=== PATIENT | male | born 1955 | race Caucasian/White ===

== ENCOUNTER 2018-02-25 17:31 | Inpatient (IN) | payer OTHER ==
[2018-02-25] MEDS ORDERED: SODIUM CHLORIDE 0.9% 1,000 ML IV ONE (17:37)
--- NOTE | 2018-02-25 17:47 | ED ---
Fall HPI - General Chief Complaint: Fall Stated Complaint: Fall leg injury-[facility] Time Seen by Provider: 02/25/18 17:35 Source: patient, EMS Mode of arrival: EMS Limitations: no limitations - History of Present Illness Initial Comments: 62-year-old male presented to emergency department via EMS chief complaint left leg injury. Patient states she was at work on a ladder approximately 3 feet high when he was cutting a metal bar came down striking the ladder causing him to fall. Patient fell onto metal plate. There is an abrasion towards his left knee but states he has mid thigh pain. Patient states he is unable to bear weight secondary to pain. He denies head injury no loss conscious. Patient is unsure when his last tetanus was. Patient does not have a significant past medical HISTORY though he states he has not been to a physician in several years. Patient's found be hypertensive, hyperglycemic. Patient states that he has no history though again he has not been to the PCP. Patient denies any head , neck, back pain. Patient states he has no pain towards his left hip. He has no abdominal complaints. Patient was given fentanyl prior arrival. - Related Data Home Medications Medication Instructions Recorded Confirmed Acetaminophen Tab [Tylenol] 1,000 mg PO DAILY 02/25/18 02/25/18 Allergies Allergy/AdvReac Type Severity Reaction Status Date / Time No Known Allergies Allergy Verified 02/25/18 18:07 Review of Systems ROS Statement: Those systems with pertinent positive or pertinent negative responses have been documented in the HPI. ROS Other: All systems not noted in ROS Statement are negative. Past Medical History History of Any Multi-Drug Resistant Organisms: None Reported Additional Past Surgical History / Comment(s): nose Past Psychological History: No Psychological Hx Reported Smoking Status: Former smoker Past Alcohol Use History: Rare Past Drug Use History: None Reported General Exam Limitations: no limitations General appearance: alert, in no apparent distress Head exam: Present: atraumatic, normocephalic, normal inspection Eye exam: Present: normal appearance, PERRL, EOMI. Absent: scleral icterus, conjunctival injection, periorbital swelling Respiratory exam: Present: normal lung sounds bilaterally. Absent: respiratory distress, wheezes, rales, rhonchi, stridor Cardiovascular Exam: Present: normal rhythm, tachycardia, normal heart sounds. Absent: systolic murmur, diastolic murmur, rubs, gallop, clicks GI/Abdominal exam: Present: soft, normal bowel sounds. Absent: distended, tenderness, guarding, rebound, rigid Extremities exam: Present: other (Moderate tenderness to left mid thigh, there is a noted abrasion to the lateral portion a left knee with no significant tenderness, no tib-fib tenderness noted the leg is neurovascularly intact with no obvious deformity) Back exam: Present: full ROM. Absent: tenderness, paraspinal tenderness, vertebral tenderness Neurological exam: Present: alert, oriented X3, CN II-XII intact, reflexes normal, other (Finger to nose intact bilaterally without over shooting). Absent : motor sensory deficit Skin exam: Present: warm, dry, intact, normal color. Absent: rash Course Vital Signs 02/25/18 17:36 Temperature 96.9 F L Pulse Rate 104 H Respiratory 18 Rate Blood Pressure 191/104 O2 Sat by Pulse 96 Oximetry Medical Decision Making - Medical Decision Making 62-year-old male presented emergency from for a fall. Patient's found to have a left hip fracture, new-onset diabetic. Patient will be admitted to Dr. Fong and wants surgical clearance by medicine. - Lab Data Result diagrams: 02/25/18 18:02 02/25/18 18:02 Lab Results 02/25/18 02/25/18 Range/Units 18:02 18:02 WBC 10.8 H (3.8-10.6) k/uL RBC 5.20 (4.30-5.90) m/uL Hgb 15.0 (13.0-17.5) gm/dL Hct 43.2 (39.0-53.0) % MCV 83.0 (80.0-100.0) fL MCH 28.8 (25.0-35.0) pg MCHC 34.7 (31.0-37.0) g/dL RDW 13.5 (11.5-15.5) % Plt Count 163 (150-450) k/uL Neutrophils % 83 % Lymphocytes % 10 % Monocytes % 6 % Eosinophils % 1 % Basophils % 0 % Neutrophils # 8.9 H (1.3-7.7) k/uL Lymphocytes # 1.1 (1.0-4.8) k/uL Monocytes # 0.6 (0-1.0) k/uL Eosinophils # 0.1 (0-0.7) k/uL Basophils # 0.0 (0-0.2) k/uL Sodium 136 L (137-145) mmol/L Potassium 4.5 (3.5-5.1) mmol/L Chloride 103 (98-107) mmol/L Carbon Dioxide 21 L (22-30) mmol/L Anion Gap 12 mmol/L BUN 15 (9-20) mg/dL Creatinine 0.62 L (0.66-1.25) mg/dL Est GFR (CKD-EPI)AfAm >90 (>60 ml/min/1.73 sqM) Est GFR (CKD-EPI)NonAf >90 (>60 ml/min/1.73 sqM) Glucose 434 H (74-99) mg/dL Calcium 9.6 (8.4-10.2) mg/dL Total Bilirubin 0.9 (0.2-1.3) mg/dL AST 36 (17-59) U/L ALT 31 (21-72) U/L Alkaline Phosphatase 241 H (38-126) U/L Total Protein 7.4 (6.3-8.2) g/dL Albumin 4.3 (3.5-5.0) g/dL Acetone, Qual Negative (Negative) Disposition Clinical Impression: Fall, Closed left hip fracture, Diabetes Disposition: ADMITTED IP TO THIS HOSP Condition: Fair Referrals: None,Stated [Primary Care Provider] - 1-2 days
[2018-02-25 18:24] LABS: Basophils % (A) 0 %; Eosinophils # (A) 0.1 k/uL (0-0.7); Eosinophils % (A) 1 %; HCT 43.2 % (39.0-53.0); Lymphocytes # (A) 1.1 k/uL (1.0-4.8); Lymphocytes % (A) 10 %; MCH 28.8 pg (25.0-35.0); MCHC 34.7 g/dL (31.0-37.0); Mean Platelet Volume 8.4; Monocytes # (A) 0.6 k/uL (0-1.0); Monocytes % (A) 6 %; Neutrophils # (A) 8.9 k/uL (1.3-7.7); Neutrophils % (A) 83 %; Platelet Count 163 k/uL (150-450); RDW 13.5 % (11.5-15.5); WBC 10.8 k/uL (3.8-10.6)
[2018-02-25 18:34] LABS: ALT 31 U/L (21-72); AST 36 U/L (17-59); Albumin 4.3 g/dL (3.5-5.0); Alkaline Phosphatase 241 U/L (38-126); Anion Gap 12 mmol/L; Blood Urea Nitrogen 15 mg/dL (9-20); Calcium 9.6 mg/dL (8.4-10.2); Carbon Dioxide 21 mmol/L (22-30); Chloride 103 mmol/L (98-107); Glucose 434 mg/dL (74-99); Potassium 4.5 mmol/L (3.5-5.1); Sodium 136 mmol/L (137-145); Total Bilirubin 0.9 mg/dL (0.2-1.3); Total Protein 7.4 g/dL (6.3-8.2)
[2018-02-25] MEDS ORDERED: HYDROmorphone 0.5 MG/0.5 ML SYRINGE IVP STA (18:37)
[2018-02-25] MEDS ORDERED: ONDANSETRON 4 MG/2 ML VIAL IVP PRN (18:50)
[2018-02-25] MEDS ORDERED: NALOXONE 0.4 MG/ML 1 ML VIAL IV PRN (18:50)
[2018-02-25] MEDS ORDERED: HYDROmorphone 0.5 MG/0.5 ML SYRINGE IVP PRN (18:50)
--- NOTE | 2018-02-25 18:52 | XR ---
EXAMINATION TYPE: XR femur LT DATE OF EXAM: 02/25/2018 COMPARISON: NONE HISTORY: Left hip pain TECHNIQUE: 4 views FINDINGS: There is nondisplaced fracture of the base of the femoral neck. There is no dislocation. Th e knee joint appears intact. IMPRESSION: Acute fracture of the base of the left femoral neck without significant displacement.
--- NOTE | 2018-02-25 18:56 | XR ---
EXAMINATION TYPE: XR chest 1V portable DATE OF EXAM: 02/25/2018 COMPARISON: NONE HISTORY: Preop clearance TECHNIQUE: Single frontal view of the chest is obtained. FINDINGS: Heart and mediastinum are normal. Lungs are clear. Diaphragm is normal. Bony thorax appear s normal. IMPRESSION: Normal chest
[2018-02-25 19:12] LABS: INR 0.9 (<1.2); Partial Thromboplastin Time 22.3 sec (22.0-30.0); Prothrombin Time 9.9 sec (9.0-12.0)
[2018-02-25 19:20] LABS: Glucose,Whole Blood 347 mg/dL (75-99)
[2018-02-25] MEDS ORDERED: DIPH,PERTUS(ACELL)TETVAC-LF 0.5 ML VIAL IM ONE (19:30)
[2018-02-25] MEDS ORDERED: INSULIN REGULAR 100 UNIT/ML VIAL IV ONE (19:30)
[2018-02-25 20:25] LABS: Glucose,Whole Blood 274 mg/dL (75-99)
[2018-02-25] MEDS ORDERED: ACETAMINOPHEN TAB 325 MG TAB PO PRN (20:29)
[2018-02-25] MEDS ORDERED: HEPARIN SODIUM,PORCINE 5,000 UNIT/ML 1 ML VIAL SQ ONE (21:00)
[2018-02-25] MEDS: HYDROmorphone 1 MG/ML 1 ML SYRINGE IVP PRN (21:32)
[2018-02-25] MEDS: SODIUM CHLORIDE 0.9% 1,000 ML IV SCH (21:33)
[2018-02-25] MEDS: INSULIN ASPART 100 UNIT/ML 1 ML 10 ML VIAL SQ SCH (21:33)
--- NOTE | 2018-02-25 22:35 | XR ---
EXAMINATION TYPE: XR pelvis AP view DATE OF EXAM: 02/25/2018 COMPARISON: NONE HISTORY: Fall. Hip fracture TECHNIQUE: Single view FINDINGS: Pelvic ring is intact. There is nondisplaced fracture of the base of the left femoral neck. Sacroiliac joints appear normal. There is no dislocation. Hip joint spaces are normal. IMPRESSION: Nondisplaced left femoral neck fracture.
[2018-02-26] MEDS ORDERED: TEMAZEPAM 15 MG CAP PO PRN (00:53)
[2018-02-26] MEDS ORDERED: hydrALAZINE HCL 20 MG/ML 1 ML VIAL IVP PRN (00:54)
[2018-02-26] MEDS: amLODIPine 5 MG TAB PO SCH ×2 (01:02→07:31)
[2018-02-26] MEDS: HYDROmorphone 1 MG/ML 1 ML SYRINGE IVP PRN ×4 (01:41→20:14)
[2018-02-26 01:43] LABS: Appearance,Urine Clear (Clear); Bilirubin,Urine Negative (Negative); Blood,Urine Negative (Negative); Color,Urine Yellow; Glucose,Urine (UA) 4+ (Negative); Leukocyte Esterase,Urine Negative (Negative); Nitrite,Urine Negative (Negative); Protein,Urine Negative (Negative); Specific Gravity,Urine 1.039 (1.001-1.035); Urobilinogen,Urine <2.0 mg/dL (<2.0)
[2018-02-26 01:50] LABS: Ketones,Urine 2+ (Negative)
[2018-02-26 07:04] LABS: Basophils % (A) 0 %; Eosinophils # (A) 0.1 k/uL (0-0.7); Eosinophils % (A) 1 %; HCT 36.9 % (39.0-53.0); HGB 12.8 gm/dL (13.0-17.5); Lymphocytes # (A) 1.5 k/uL (1.0-4.8); Lymphocytes % (A) 19 %; MCHC 34.6 g/dL (31.0-37.0); Mean Platelet Volume 8.3; Monocytes # (A) 0.6 k/uL (0-1.0); Monocytes % (A) 8 %; Neutrophils # (A) 5.6 k/uL (1.3-7.7); Neutrophils % (A) 71 %; Platelet Count 138 k/uL (150-450); RDW 13.7 % (11.5-15.5)
[2018-02-26 07:20] LABS: Anion Gap 7 mmol/L; Blood Urea Nitrogen 13 mg/dL (9-20); Calcium 8.5 mg/dL (8.4-10.2); Carbon Dioxide 24 mmol/L (22-30); Chloride 106 mmol/L (98-107); Glucose 200 mg/dL (74-99); Potassium 4.9 mmol/L (3.5-5.1); Sodium 137 mmol/L (137-145)
[2018-02-26] MEDS: metFORMIN 500 MG TAB PO SCH ×2 (07:30→17:48)
[2018-02-26 07:31] LABS: Glucose,Whole Blood 229 mg/dL (75-99)
[2018-02-26] MEDS: INSULIN ASPART 100 UNIT/ML 1 ML 10 ML VIAL SQ SCH ×4 (07:31→20:31)
[2018-02-26] MEDS: PANTOPRAZOLE 40 MG TABLET PO SCH (07:31)
[2018-02-26 07:36] LABS: INR 0.9 (<1.2); Partial Thromboplastin Time 22.7 sec (22.0-30.0); Prothrombin Time 10.1 sec (9.0-12.0)
[2018-02-26] MEDS ORDERED: HEPARIN SODIUM,PORCINE 5,000 UNIT/ML 1 ML VIAL SQ SCH (09:00)
[2018-02-26] MEDS: SODIUM CHLORIDE 0.9% 1,000 ML IV SCH ×2 (09:23→20:30)
--- NOTE | 2018-02-26 10:00 | CONS ---
CONSULTATION DATE OF SERVICE: 02/25/2018 REASON FOR CONSULTATION: Advice regarding diabetes mellitus and other multiple medical issues requested by Dr. Garcia. HISTORY OF PRESENT ILLNESS: This 62-year-old gentleman with a past medical history of no significant medical issues except newly diagnosed diabetes since this admission not being followed by any primary physician in the outpatient setting, had left wrist ganglion removal. The patient apparently had a fall from the ladder and the patient admitted with features of nondisplaced left femoral neck fracture. There is no history of fever, rigors or chills. No history of headache, loss of consciousness, or seizures. As mentioned earlier, the blood sugar was elevated to 434, improved with insulin coverage at this time. Hemoglobin A1c is note available. There is no history of fever, rigors or chills. No chest pain. No palpitations or shortness of breath at this time. PAST MEDICAL HISTORY: History of left wrist ganglion removal. MEDICATIONS ARE: Tylenol p.r.n. ALLERGIES: None. FAMILY HISTORY: History of diabetes in the family. Cancer in the family. SOCIAL HISTORY: Previous history of smoking. No history of current smoking or alcohol intake. REVIEW OF SYSTEMS: ENT: No diminished hearing. No diminished vision. CARDIOVASCULAR: No angina or palpitations. RESPIRATORY: No cough or hemoptysis. GI no nausea or vomiting. : No dysuria. NERVOUS SYSTEM: No numbness or weakness. ALLERGY/IMMUNOLOGY: No asthma or hayfever. MUSCULOSKELETAL: As mentioned earlier. HEMATOLOGY/ONCOLOGY: No history of anemia. ENDOCRINE: As mentioned earlier. CONSTITUTIONAL: As mentioned earlier. Dermatology: Negative. Rheumatology: Negative. Psychiatry: As mentioned earlier. PHYSICAL EXAMINATION: GENERAL: Alert and oriented x3. VITAL SIGNS: Pulse is 104, blood pressure ntd, respiration 18, temperature 96.9 , pulse ox 98% on room air. HEENT: Conjunctivae normal. Oral mucosa moist. NECK: No jugular venous distention. No carotid bruit. No lymph node enlargement. CARDIOVASCULAR: S1, S2. No S3, no S4. RESPIRATORY: Breath sounds diminished in the bases. No rhonchi. No crackles. ABDOMEN: Soft, nontender. No mass palpable. LEGS: Status post left hip fracture. NERVOUS SYSTEM: Higher functions as mentioned earlier. Moves all 4 limbs. No focal motor or sensory deficits. Lymphatics: No lymph nodes palpable in the neck, axillae or groin. SKIN: No ulcer, rash, no bleeding. LAB STUDIES: At this time shows WBC 10.8, hemoglobin 15, sodium 130, potassium 4.5. Glucose noted. ASSESSMENT: 1. Left-sided hip fracture. 2. Diabetes mellitus type 2, uncontrolled with new onset. 3. Hyponatremia. 4. Hypertension. 5. Increased WBC. 6. Obesity with a BMI of 39.9. 7. History of left wrist ganglion removal. 8. Remote history of nicotine dependence. RECOMMENDATIONS AND DISCUSSION: In this 62-year-old gentleman who presented with multiple medical issues, at this time, I recommend continue the current medications. Continue with insulin. Insulin to scale. I would also recommend initiate metformin. Hemoglobin A1c will be ordered. Otherwise, DVT prophylaxis. Incentive spirometry. I would also recommend monitoring and treating the hypertension. See orders for further details. We will follow the patient closely with you. The previous exercise tolerance appears to be excellent and the patient will be cleared for surgery. However, I would recommend close follow up with the primary physician in the outpatient setting regarding the above- mentioned medical issues. Further recommendations to follow. Thank you, Dr. Garcia, for letting us participate in the care of this patient. MMODL / IJN: [id number] / LONI
--- NOTE | 2018-02-26 11:16 | P.HPOR ---
History of Present Illness H&P Date: 02/26/18 Chief Complaint: Left hip fracture Patient is a 62-year-old male who presented to [facility] yesterday afternoon after sustaining an injury at work. Patient was apparently up on a ladder cutting away a metal component, the metal slipped and hit his ladder which caused him to fall. Patient fell directly onto a metal object. Patient was unable to weight-bear after the fall. EMS brought patient to [facility]. Upon arrival, imaging lab tests were done. Images demonstrated a left subcapital femoral neck fracture. I was contacted by the emergency room staff, I was able to review the images. I was able to review the images with my attending physician Dr. Garcia. Patient was admitted under our care with plan for surgical intervention, internal medicine was placed on consult for medical management. Patient was made nothing by mouth on 02/25/2018. Patient was evaluated this morning at bedside, he has family present in the room. He's resting comfortably. He notes discomfort in the left hip region with movement. He denies any left knee pain, foot or ankle pain. He denies any right lower extremity pain, bilateral upper extremity pain, new-onset cervical, thoracic or lumbar pain. Patient is relatively healthy, he does not see a primary care doctor. His blood sugar was noted to be significantly elevated in the ER, medicine has ordered an sliding-scale insulin which has improved. He denies any previous issues with cardiac or lung function. He denies any previous orthopedic surgeon while the left lower extremity. Review of Systems Constitutional: Reports as per HPI Past Medical History Past Medical History: Diabetes Mellitus Additional Past Medical History / Comment(s): Newly diagnosed Diabetes this admission History of Any Multi-Drug Resistant Organisms: None Reported Additional Past Surgical History / Comment(s): Left Wrist ganglion removal, Nasal surgery 1989 Past Anesthesia/Blood Transfusion Reactions: No Reported Reaction Additional Past Anesthesia/Blood Transfusion Reaction / Comment(s): Never had blood transfusions Past Psychological History: No Psychological Hx Reported Smoking Status: Former smoker Past Alcohol Use History: None Reported Past Drug Use History: None Reported - Past Family History Mother Family Medical History: Cancer, Diabetes Mellitus Additional Family Medical History / Comment(s): Father Family Medical History: Neurologic Disorder Additional Family Medical History / Comment(s): Parkinsons Disease Sister(s) Family Medical History: Diabetes Mellitus Brother(s) Family Medical History: Diabetes Mellitus Medications and Allergies Home Medications Medication Instructions Recorded Confirmed Type Acetaminophen Tab [Tylenol] 1,000 mg PO DAILY 02/25/18 02/25/18 History Allergies Allergy/AdvReac Type Severity Reaction Status Date / Time No Known Allergies Allergy Verified 02/25/18 18:07 Physical Examination Left lower extremity: Is no obvious open lesions or sores present throughout the left lower extremity. A small abrasion is noted on the lateral aspect of the left knee. No significant areas of soft tissue swelling or erythema present. External rotation is noted of the left lower extremity compared to the contralateral side. Logroll maneuver reproduces discomfort, he is unable to straight leg raise. No significant tenderness surrounding the knee with palpation. Tenderness with palpation present over the greater trochanter on the left side. Calf is soft, no tenderness with palpation. Plantar flexion, dorsiflexion, EHL, FHL are intact. His dorsal pedis pulses 2+, sensory exam to light touch is intact throughout the extremity. Results - Labs Labs: Abnormal Lab Results - Last 24 Hours (Table) 02/25/18 02/25/18 02/25/18 Range/Units 18:02 18:02 19:18 WBC 10.8 H (3.8-10.6) k/uL Hgb (13.0-17.5) gm/dL Hct (39.0-53.0) % Plt Count (150-450) k/uL Neutrophils # 8.9 H (1.3-7.7) k/uL Sodium 136 L (137-145) mmol/L Carbon Dioxide 21 L (22-30) mmol/L Creatinine 0.62 L (0.66-1.25) mg/dL Glucose 434 H (74-99) mg/dL POC Glucose (mg/dL) 347 H (75-99) mg/dL Alkaline Phosphatase 241 H (38-126) U/L Ur Specific [place] (1.001-1.035) Urine Glucose (UA) (Negative) Urine Ketones (Negative) 02/25/18 02/26/18 02/26/18 Range/Units 20:13 01:35 06:44 WBC (3.8-10.6) k/uL Hgb 12.8 L (13.0-17.5) gm/dL Hct 36.9 L (39.0-53.0) % Plt Count 138 L (150-450) k/uL Neutrophils # (1.3-7.7) k/uL Sodium (137-145) mmol/L Carbon Dioxide (22-30) mmol/L Creatinine (0.66-1.25) mg/dL Glucose (74-99) mg/dL POC Glucose (mg/dL) 274 H (75-99) mg/dL Alkaline Phosphatase (38-126) U/L Ur Specific [place] 1.039 H (1.001-1.035) Urine Glucose (UA) 4+ H (Negative) Urine Ketones 2+ H (Negative) 02/26/18 02/26/18 Range/Units 06:44 07:20 WBC (3.8-10.6) k/uL Hgb (13.0-17.5) gm/dL Hct (39.0-53.0) % Plt Count (150-450) k/uL Neutrophils # (1.3-7.7) k/uL Sodium (137-145) mmol/L Carbon Dioxide (22-30) mmol/L Creatinine 0.63 L (0.66-1.25) mg/dL Glucose 200 H (74-99) mg/dL POC Glucose (mg/dL) 229 H (75-99) mg/dL Alkaline Phosphatase (38-126) U/L Ur Specific [place] (1.001-1.035) Urine Glucose (UA) (Negative) Urine Ketones (Negative) H & H 02/25/18 02/26/18 Range/Units 18:02 06:44 Hgb 15.0 12.8 L (13.0-17.5) gm/dL Hct 43.2 36.9 L (39.0-53.0) % Coagulation 02/25/18 02/26/18 Range/Units 18:02 06:44 INR 0.9 0.9 (<1.2) Result Diagrams: 02/26/18 06:44 02/26/18 06:44 - Diagnostic results Hip x-ray: report reviewed, image reviewed Assessment and Plan Plan: Imaging: Pelvis x-ray along with dedicated left hip x-rays were reviewed. Images demonstrate a left subcapital femoral neck fracture with minimal displacement. Assessment: 1. Left subcapital femoral neck fracture 2. Status post fall from ladder 3. Other medical comorbidities Plan: I was able to discuss the case, including the physical exam findings and imaging studies my attending Dr. Garcia. Our plan is to proceed with a left total hip arthroplasty on 02/26/2018. I discussed the case, including risk and benefits of the procedure with the patient and family today at bedside. Risk to include but not exclude infection, blood loss, development of blood clots, pain and stiffness, need for subsequent surgery. Patient is in good understanding would like to proceed. Obtain consent Pain control Physical therapy evaluation after surgery GI and DVT prophylaxis, will likely resume oral anticoagulation after surgery Medical recommendations Further recommendations to follow Time with Patient: Less than 30
[2018-02-26 12:19] LABS: Glucose,Whole Blood 350 mg/dL (75-99)
[2018-02-26 12:26] LABS: Glucose,Whole Blood 196 mg/dL (75-99)
[2018-02-26] MEDS ORDERED: SODIUM CHLORIDE 0.9% 1,000 ML IV ONE (12:28)
[2018-02-26] MEDS ORDERED: HYDROmorphone (PF) 1 MG/ML ONE (12:32)
[2018-02-26] MEDS ORDERED: PROPOFOL 10 MG/ML 20 ML VIAL IV ONE (12:32)
[2018-02-26] MEDS ORDERED: fentaNYL (PF) 50 MCG/ML 2 ML AMP ONE (12:32)
[2018-02-26] MEDS ORDERED: LIDOCAINE 1% INJ 10MG/ML (20 ML MDV) ONE (12:32)
[2018-02-26] MEDS ORDERED: KETAMINE 10 MG/ML 20 ML VIAL ONE (12:32)
[2018-02-26] MEDS ORDERED: DEXAMETHASONE SOD PHOS (MDV) 100 MG/10 ML VIAL ONE (12:32)
[2018-02-26] MEDS ORDERED: MIDAZOLAM 2 MG/2 ML VIAL ONE (12:32)
[2018-02-26] MEDS ORDERED: SODIUM CHLORIDE 0.9% 50 ML with ceFAZolin 2,000 MG IV ONE ×2 (12:55)
[2018-02-26] MEDS ORDERED: ceFAZolin 3,000 MG in SODIUM CHLORIDE 0.9% IRRIGATIO 3,000 ML IRRIGATION ONE (13:24)
[2018-02-26] MEDS ORDERED: LACTATED RINGERS 1,000 ML IV ONE (13:44)
[2018-02-26] MEDS ORDERED: traMADol 50 MG TAB PO PRN (14:15)
[2018-02-26] MEDS ORDERED: HYDROcodone/APAP 7.5-325MG 1 EACH TAB PO PRN (14:15)
[2018-02-26] MEDS ORDERED: MAGNESIUM HYDROXIDE 2,400 MG/10 ML CUP PO PRN (14:15)
--- NOTE | 2018-02-26 14:44 | P.OP ---
Date of Procedure: 02/26/18 Preoperative Diagnosis: Displaced left subcapital femoral neck fracture Postoperative Diagnosis: Same Procedure(s) Performed: Left total hip arthroplastypress-fitlateral approach Implants: Depuy Corail size 12 collared standard press-fit femoral stem, 32 mm +5 cobalt chrome femoral head, 52 mm [place] acetabular shell with neutral polyethylene liner. Anesthesia: spinal Surgeon: Edin Garcia Owner #1: Scott Coy Estimated Blood Loss (ml): 150 Pathology: other (Femoral head) Condition: stable Disposition: PACU Indications for Procedure: The patient's a 62-year-old male who presents after falling off a ladder injuring his left hip. Upon evaluation he is noted of evidence of a displaced left subcapital femoral neck fracture. A discussion of the risks and benefits of operative intervention was made with patient. He opted to proceed. Operative options to include open reduction and internal fixation versus total hip arthroplasty was discussed. He opted to proceed with total hip arthroscopy. Specific risks of this procedure to include infection, neurovascular injury, development of blood clots, possible component loosening, possible instability, possible leg length discrepancy and possible need for subsequent procedures was discussed. Informed consent was obtained. Operative Findings: As below Description of Procedure: The patient was brought to the operating room, and after induction of spinal anesthesia was placed in a lateral decubitus position. The bony prominences were appropriately padded. The pelvis was stable perpendicular to the floor with a pegboard. The left lower extremity was prepped and draped in normal fashion. A 12 cm incision was then made centered over the greater trochanter extending superiorly to level the ASIS and distally in line with the femoral shaft. The skin and subcutaneous tissues were divided sharply. Electrocautery was used for hemostasis. The fascia denny and gluteus carmenza fascia was split in line with the skin incision. The muscle fibers were bluntly dissected proximally. A self-retaining retractor was placed. The anterior and posterior margins of the gluteus medius muscles identified and the anterior two thirds was detached from the greater trochanter with electrocautery. The gluteus minimus tendon was identified and detached in a similar fashion. A wide capsulotomy was performed. The femoral neck fracture was identified in the lower neck cut was made approximately 1 1/2 cm above the level of the lesser trochanter with a sagittal saw at a 45 the shaft. The head was then extracted with a corkscrew. Attention was then paid towards preparing the acetabular. Anterior and posterior retractors were placed. The remaining capsular labral tissues debrided sharply clearly defining the acetabular margins. Began reaming with a 47 mm reamer taking care to initially medialize, then reaming at 45 of abduction and 20 of anteversion. Sequential reaming is performed up to 51 mm. This was down to bleeding bony surface. A trial 52 mm acetabular shell was inserted at 45 of abduction and 20 of anteversion. This was fully seated. There was good rim fit and stability. I did place one 6.5 x 25 mm cancellus screw posteriorly. Good purchase was obtained. A neutral polyethylene liner was then impacted. Care taken to avoid any soft tissue interposition. Attention was then paid towards preparing the proximal femur. A box chisel was used to open the metaphyseal region. A canal finder was used to find the femoral canal. Sequential broaching was performed up to a size 11. This is placed in 15 of anteversion with the leg perpendicular floor judging off the trans-epicondylar axis. There is good rotational stability. A calcar mill was used to fashion the medial calcar. A trial standard neck along with a 32 mm +5 trial head was placed. The hip was gently reduced. It was taken through range of motion. I felt to be stable in flexion and extension with internal and external rotation. I felt there was adequate mandaen of soft tissue tension. The hip was gently dislocated. The trial components removed. Pulsatile lavage was utilized. The final size 11 standard collared femoral stem was inserted again with the leg perpendicular to the floor in 15 of anteversion. Again there was good rotational stability. A 32 mm +5 cobalt chrome femoral head was gently impacted. The hip was gently reduced. Again it was taken through motion and felt to be stable in flexion and extension with internal and external rotation. Pulsatile lavage was again utilized. With the leg in abduction the gluteus minimus and medius tendons reattached to the greater trochanter with #2 [place] suture. There was minimal drainage therefore a deep drain was not placed. The fascia denny and gluteus carmenza fascia was closed with #2 Ethibond suture. The subcutaneous tissues were reapproximated interrupted 2-0 Vicryl sutures. The skin was reapproximated with 3-0 subcuticular strata fix suture. Skin tape and adhesive was applied. A sterile dressing was applied. The patient was awoken from sedation and transferred to recovery room in good condition. Blood loss was estimated 150 mL. No complications were incurred. Sponge and needle counts were correct in the case. John VALLADARES assisted during the major composes case to include exposure, implantation, and closure.
[2018-02-26 14:48] LABS: Glucose,Whole Blood 177 mg/dL (75-99)
[2018-02-26] MEDS ORDERED: diphenhydrAMINE 50 MG/ML 1 ML VIAL IVP STA (16:12)
--- NOTE | 2018-02-26 16:13 | XR ---
EXAMINATION TYPE: XR Hip Limited LT DATE OF EXAM: 02/26/2018 COMPARISON: NONE HISTORY: Postop TECHNIQUE: Single view FINDINGS: There is left hip prosthesis. Components appear in anatomic position. IMPRESSION: No complicating process seen.
[2018-02-26 17:10] LABS: Glucose,Whole Blood 227 mg/dL (75-99)
[2018-02-26] MEDS: ceFAZolin IN SWFI 2 GM/20 ML SYRINGE IVP SCH (20:15)
[2018-02-26 20:25] LABS: Glucose,Whole Blood 327 mg/dL (75-99)
[2018-02-26] MEDS ORDERED: SENNOSIDES-DOCUSATE SODIUM 1 EACH TAB PO SCH (21:00)
--- NOTE | 2018-02-26 21:45 | PN ---
PROGRESS NOTE DATE OF SERVICE: 02/26/2018 This 62-year-old gentleman who was admitted with left-sided hip fracture, underwent left total knee joint arthroplasty. No chest pain. No palpitations. No fever. The patient has got new onset diabetes mellitus, which is controlled with insulin and metformin at this time. EXAM: Alert and oriented times three. Pulse 97, blood pressure 134/66, respiration 16, temperature 99.1, pulse ox 97% on 2 L. HEENT is conjunctivae normal. Neck is no jugular venous distention. Cardiovascular: S1, S2. RESPIRATORY: Breath sounds diminished in the bases. No rhonchi. No crackles. Abdomen is soft, nontender. Legs status post surgery. Nervous system: No focal deficits. LABORATORY DATA: Glucose 177, 227. Otherwise WBC 8, hemoglobin 12.8. ASSESSMENT: 1. Left sided hip fracture status post left total hip arthroplasty. 2. Diabetes mellitus type 2, uncontrolled with new onset. 3. Hyponatremia. 4. Hypertension. 5. Increased WBC. 6. Obesity with body mass index of 39.9. 7. History of left wrist ganglion removal. 8. Remote history of nicotine dependence. RECOMMENDATIONS AND DISCUSSION: Recommend to continue current medications, management and symptomatic treatment, incentive spirometry. DVT prophylaxis. Closely follow with surgery. Continue with blood sugars. Monitor closely. Guarded prognosis. Further recommendations to follow. MMODL / IJN: [id number] /
[2018-02-27] MEDS: HYDROmorphone 1 MG/ML 1 ML SYRINGE IVP PRN (05:26)
[2018-02-27] MEDS: ceFAZolin IN SWFI 2 GM/20 ML SYRINGE IVP SCH (05:27)
[2018-02-27 07:04] LABS: Glucose,Whole Blood 207 mg/dL (75-99)
[2018-02-27 07:12] LABS: Basophils % (A) 0 %; Eosinophils % (A) 0 %; HGB 11.5 gm/dL (13.0-17.5); Lymphocytes % (A) 11 %; MCH 28.9 pg (25.0-35.0); MCHC 34.8 g/dL (31.0-37.0); MCV 83.1 fL (80.0-100.0); Mean Platelet Volume 8.5; Monocytes # (A) 0.7 k/uL (0-1.0); Monocytes % (A) 8 %; Neutrophils # (A) 7.2 k/uL (1.3-7.7); Neutrophils % (A) 79 %; Platelet Count 136 k/uL (150-450); RBC 3.98 m/uL (4.30-5.90); RDW 13.6 % (11.5-15.5); WBC 9.1 k/uL (3.8-10.6)
[2018-02-27 07:38] LABS: Anion Gap 7 mmol/L; Blood Urea Nitrogen 13 mg/dL (9-20); Calcium 8.3 mg/dL (8.4-10.2); Carbon Dioxide 24 mmol/L (22-30); Chloride 104 mmol/L (98-107); Cholesterol 152 mg/dL (<200); Glucose 190 mg/dL (74-99); HDL Cholesterol 44 mg/dL (40-60); LDL Cholesterol,Calculated 94 mg/dL (0-99); Potassium 4.6 mmol/L (3.5-5.1); Sodium 135 mmol/L (137-145); Triglycerides 70 mg/dL (<150)
[2018-02-27] MEDS: HYDROcodone/APAP 7.5-325MG 1 EACH TAB PO PRN ×2 (08:47→14:22)
[2018-02-27] MEDS: INSULIN ASPART 100 UNIT/ML 1 ML 10 ML VIAL SQ SCH ×2 (08:47→12:45)
[2018-02-27] MEDS: PANTOPRAZOLE 40 MG TABLET PO SCH (08:48)
[2018-02-27] MEDS: amLODIPine 5 MG TAB PO SCH (08:48)
[2018-02-27] MEDS: metFORMIN 500 MG TAB PO SCH (08:49)
[2018-02-27] MEDS ORDERED: RIVAROXABAN 10 MG TAB PO SCH (09:00)
[2018-02-27 09:04] VITALS: BP 154/78; PULSE 105; RESP 16; TEMP 98.3
--- NOTE | 2018-02-27 10:51 | P.PN ---
Subjective Progress Note Date: 02/27/18 Principal diagnosis: Status post left total hip arthroplasty Patient is seen today resting in his hospital bed, his family is present at bedside. His no acute complaints. There is minimal discomfort and left hip region. He is ambulating well with therapy. He is urinating on his own. He denies any chest pain or shortness of breath. Objective - Vital Signs Vital signs: Vital Signs Temp 98.3 F 02/27/18 09:02 Pulse 105 H 02/27/18 09:02 Resp 16 02/27/18 09:02 BP 154/78 02/27/18 09:02 Pulse Ox 93 L 02/27/18 09:02 Intake & Output 02/26/18 02/27/18 02/27/18 18:59 06:59 18:59 Intake Total 1051 1880 Output Total 150 320 Balance 901 1560 Intake: IV 1051 Intake, IV Titration 600 Amount Sodium Chloride 0.9% 1, 600 000 ml @ 75 mls/hr IV . [id number] Rx#:[id number] Oral 1280 Output: Urine 320 Estimated Blood Loss 150 Other: Voiding Method Urinal # Voids 2 - Exam Left lower extremity: Incision is clean, dry, and intact. The exofin fusion tape is in good condition. There is minimal soft tissue swelling and ecchymosis surrounding the medial and lateral aspects of the incision. Calf is soft, no tenderness with palpation. Plantar flexion, dorsiflexion, EHL, FHL are intact. Sensory exam to light touch throughout the extremity is intact, dorsal pedis pulses 2+. - Labs CBC & Chem 7: 02/27/18 06:39 02/27/18 06:39 Labs: Abnormal Lab Results - Last 24 Hours (Table) 02/26/18 02/26/18 02/26/18 Range/Units 11:34 12:24 14:44 RBC (4.30-5.90) m/uL Hgb (13.0-17.5) gm/dL Hct (39.0-53.0) % Plt Count (150-450) k/uL Sodium (137-145) mmol/L Creatinine (0.66-1.25) mg/dL Glucose (74-99) mg/dL POC Glucose (mg/dL) 350 H 196 H 177 H (75-99) mg/dL Calcium (8.4-10.2) mg/dL 02/26/18 02/26/18 02/27/18 Range/Units 16:43 20:14 06:39 RBC 3.98 L (4.30-5.90) m/uL Hgb 11.5 L (13.0-17.5) gm/dL Hct 33.0 L (39.0-53.0) % Plt Count 136 L (150-450) k/uL Sodium (137-145) mmol/L Creatinine (0.66-1.25) mg/dL Glucose (74-99) mg/dL POC Glucose (mg/dL) 227 H 327 H (75-99) mg/dL Calcium (8.4-10.2) mg/dL 02/27/18 02/27/18 Range/Units 06:39 06:53 RBC (4.30-5.90) m/uL Hgb (13.0-17.5) gm/dL Hct (39.0-53.0) % Plt Count (150-450) k/uL Sodium 135 L (137-145) mmol/L Creatinine 0.57 L (0.66-1.25) mg/dL Glucose 190 H (74-99) mg/dL POC Glucose (mg/dL) 207 H (75-99) mg/dL Calcium 8.3 L (8.4-10.2) mg/dL Assessment and Plan Plan: Assessment: 1. Postop day #1 status post left total hip arthroplasty Plan: Pain control, plan for discharge on [place] 7.5 mg/325 mg Wound care instructions were discussed with patient, along with icing and elevating techniques Home therapy and nursing after discharge GI and DVT prophylaxis, Eliquis 2.5 mg twice a day after discharge Medical recommendations Discharge planning: Plan for discharge home today Time with Patient: Less than 30
--- NOTE | 2018-02-27 10:54 | P.DS ---
Providers Date of admission: 02/25/18 18:51 Expected date of discharge: 02/27/18 Attending physician: Edin Garcia Consults: 02/25/18 18:48 Consult Physician Stat Consulting Provider: Wendi Al Consult Reason/Comments: Surgical clearance for am Do you want consulting provider notified?: Yes Primary care physician: Stated None Hospital Course: Date of admission: 02/25/2018 Date of discharge: 02/27/2018 Admission diagnosis: Left subcapital femoral neck fracture Discharge diagnosis: Status post left total hip arthroplasty Attending physician: Dr. Garcia Surgical procedures: Left total hip arthroplasty Brief history: Patient is a 62-year-old male who presented to [facility] on 02/25/2018 after sustaining a fall from a ladder at work. Patient was unable to weight-bear on the extremity after the fall, he was brought to [facility] via ambulance. Upon arrival to the hospital, imaging and lab tests done. Images demonstrated a left subcapital femoral neck fracture. I was contacted by the emergency room staff regarding the patient, the case was discussed. I was able to discuss the case with my attending Dr. Garcia, patient was admitted under orthopedic care with plan for surgical intervention. Internal medicine was consulted for medical management. Surgery was done on 02/26/2018. Hospital course: Details of patient's surgery can be found in operative report. Patient tolerated the procedure well and was subsequently transported to orthopedic floor. Patient's orthopeidc and medical care was provided daily. Patient had daily laboratory tests performed for evaluation of overall blood counts. Patient had daily physical therapy to include strengthening range of motion as well as education with walker ambulation. Patient was treated with Xarelto for their postoperative DVT prophylaxis during their inpatient stay. Patient was noted to have a relatively uneventful postoperative course. Patient reported satisfactory pain control with oral pain medications by postoperative day 0. Patient showed satisfactory progress with physical therapy. Patient moved steadily through the program and had no difficulty meeting the goals by postoperative day 1. Given patient's otherwise satisfactory course and having met physical therapy goals, plan is to discharge patient home on postoperative day 1. Discharge condition/disposition: Patient will be discharged home in stable condition. Discharge medications: Instructions are given on resumption of patient's normal daily medications per primary care recommendation, in addition patient will be prescribed Tun[place] 7.5 mg/325 mg, Colace 100 mg, Eliquis 2.5mg. Discharge instructions: 1. Wound care and infection precautions, keep incision dry and covered while showering, no lotions, creams, moisturizers. No soaking, tubs, pools, hottubs. Do not scrub over the incision. 2. Weight-bear as tolerated with walker / cane until follow-up. 3. Ice and elevate when necessary. Do not exceed 20 minutes per hour with ice pack. 4. Utilize compression sleeve until seen at first follow up appointment. 5. Visiting nursing care. 6. Home physical therapy. 7. Pain meds and anticoagulants per prescription. 8. Pain medication has potential to cause constipation. Increase oral fluid and fiber intake. Contact primary care provider if you have not had a bowel movement within 48 hours after discharge 9. No anti-inflammatory medication until discussed at first post operative visit, this including Motrin, Aleve, Mobic, Diclofenac. 10. Follow up in office at 2 weeks postop with John Coy PA-C 11. Follow up with your primary care doctor 7-10 days after discharge. 12. Contact [facility] with any questions, . Procedures: Left total hip arthroplasty Patient Condition at Discharge: Good Plan - Discharge Summary Discharge Rx Participant: No New Discharge Prescriptions: New Apixaban [Eliquis] 2.5 mg PO BID #30 tab Docusate [Colace] 100 mg PO DAILY #30 capsule HYDROcodone/APAP 7.5-325MG [Tunica 7.5] 1 - 2 each PO Q6HR PRN #56 tab PRN Reason: Pain No Action Acetaminophen Tab [Tylenol] 1,000 mg PO DAILY Discharge Medication List Acetaminophen Tab [Tylenol] 1,000 mg PO DAILY 02/25/18 [History] Apixaban [Eliquis] 2.5 mg PO BID #30 tab 02/27/18 [Rx] Docusate [Colace] 100 mg PO DAILY #30 capsule 02/27/18 [Rx] HYDROcodone/APAP 7.5-325MG [Tunica 7.5] 1 - 2 each PO Q6HR PRN #56 tab 02/27/18 [ Rx] Follow up Appointment(s)/Referral(s): Scott Coy, SEAN [PHYSICIAN JOINT CUTTER] - 2 Weeks None,Stated [Primary Care Provider] - 1-2 days Activity/Diet/Wound Care/Special Instructions: Orthopedic Discharge Instructions: 1. Wound care and infection precautions, keep incision dry and covered while showering, no lotions, creams, moisturizers. No soaking, pools, hot tubs. Do not scrub over incision. 2. Weight-bear as tolerated with walker / cane until follow-up. 3. Ice and elevate when necessary. Do not exceed 20 minutes per hour with ice pack. 4. Utilize compression sleeve until seen at first follow up appointment. 5. Pain meds and anticoagulants per prescription. 6. Pain medication has potential to cause constipation. Increase oral fluid and fiber intake. Contact primary care provider if you have not had a bowel movement within 48 hours after discharge. 7. No anti-inflammatory medication until discussed at first post operative visit, this including Motrin, Aleve, Mobic, Diclofenac 8. Follow up in office at 2 weeks postop with John Coy PA-C 9. Follow up with your primary care doctor 7-10 days after discharge. 10. Contact [facility] with any questions, . Discharge Disposition: HOME WITH HOME HEALTH SERVICES
[2018-02-27 11:34] LABS: Glucose,Whole Blood 243 mg/dL (75-99)
[2018-02-27 13:12] LABS: Hemoglobin A1C 12.6 % (4.0-6.0)
[2018-02-27] MEDS: SODIUM CHLORIDE 0.9% 1,000 ML IV SCH (14:24)
--- NOTE | 2018-02-27 15:47 | ECHOF ---
Referral Reason:hypertension MEASUREMENTS -------- HEIGHT: 165.1 cm WEIGHT: 108.9 kg BP: 127/76 IVSd: 1.2 cm (0.6 - 1.1) LVIDd: 4.3 cm (3.9 - 5.3) LVPWd: 1.2 cm (0.6 - 1.1) IVSs: 1.7 cm LVIDs: 3.5 cm LVPWs: 1.8 cm LA Diam: 3.2 cm (2.7 - 3.8) RVIDd: 3.6 cm (< 3.3) LAESV Index (A-L): 27.55 ml/m Ao Diam: 3.4 cm (2.0 - 3.7) AV Cusp: 1.9 cm (1.5 - 2.6) EPSS: 0.3 cm MV E Lorenzo: 0.87 m/s MV DecT: 174 ms MV A Lorenzo: 0.80 m/s MV E/A Ratio: 1.09 MV EF SLOPE: 37.11 mm/s (70 - 150) MV EXCURSION: 18.05 mm (> 18.000) FINDINGS -------- Resting tachycardia (HR>100bpm). This was a technically adequate study. The left ventricular size is normal. There is borderline concentric left ventricular hypertrophy. Overall left ventricular systolic function is normal with, an EF between 60 - 65 %. The right ventricle is mildly enlarged. Normal LA size by volume 22+/-6 ml/m2. The right atrium is normal in size. There is mild aortic valve sclerosis. Mild mitral annular calcification present. The tricuspid valve appears structurally normal. The pulmonic valve was not well visualized. The aortic root size is normal. Normal inferior vena cava with normal inspiratory collapse consistent with estimated right atrial pre ssure of 5 mmHg. There is no pericardial effusion. CONCLUSIONS -------- 1. Resting tachycardia (HR>100bpm). 2. This was a technically adequate study. 3. The left ventricular size is normal. 4. There is borderline concentric left ventricular hypertrophy. 5. Overall left ventricular systolic function is normal with, an EF between 60 - 65 %. 6. The right ventricle is mildly enlarged. 7. Normal LA size by volume 22+/-6 ml/m2. 8. The right atrium is normal in size. 9. There is mild aortic valve sclerosis. 10. Mild mitral annular calcification present. 11. The tricuspid valve appears structurally normal. 12. The pulmonic valve was not well visualized. 13. The aortic root size is normal. 14. Normal inferior vena cava with normal inspiratory collapse consistent with estimated right atrial pressure of 5 mmHg. 15. There is no pericardial effusion. SLIDE MACHINE TENDER: Raya Ho RDCS
--- NOTE | 2018-02-27 18:37 | PN ---
PROGRESS NOTE DATE OF SERVICE: 02/27/2018 This 62-year-old gentleman admitted with left hip fracture, underwent left hip hemiarthroplasty. The patient also has new onset diabetes mellitus. Insulin has been initiated. No chest pain. No palpitations. No fever. EXAM: Alert and oriented x3. Pulse 105, blood pressure 150/70, respiration 16, temperature 98.2, pulse ox 97% on room air. HEENT: Conjunctivae normal. Oral mucosa moist. NECK: No jugular venous distention. No lymph node enlargement. CARDIOVASCULAR: S1, S2. RESPIRATORY: Diminished breath sounds at the bases. No rhonchi, no crackles. ABDOMEN: Soft, nontender. LEGS: Status post surgery. NERVOUS SYSTEM: No focal deficits. LAB STUDIES: WBC 9, hemoglobin 7.9, sodium 135, glucose noted. ASSESSMENT: 1. Left-sided hip fracture status post left total knee arthroplasty. 2. Diabetes type 2, uncontrolled with new onset. 3. Hyponatremia. 4. Hypertension. 5. Increased WBC. 6. Obesity with body mass index of 39.9. 7. History of left wrist ganglion removal. 8. Remote history of nicotine dependence. RECOMMENDATIONS: Continue current management, continue to monitor, continue symptomatic treatment. I would also recommend Lantus 10 units at h.s. and Accu-Cheks a.c. and h.s. and metformin. Also, incentive spirometry and DVT prophylaxis per Orthopedic surgery. Also recommend initiate Zestril 20 mg and closely follow up with Dr. Babin in the outpatient setting. Discussed with the patient who understands. See orders for details. Also, further recommendations per Orthopedic surgery. MMODL / IJN: [id number] /
== END 2018-02-27 16:25 | disposition home health service (06) | DRG 470 ==
LOC: EC 17:31 → 4SSUR 18:51
PROVIDERS: ADMIT Orthopaedic Surgery; ATTEND Orthopaedic Surgery
PROC: 0SRB02A Replacement of Left Hip Joint with Metal on Polyethylene Synthetic Substitute, Uncemented, Open Approach (ICD-10-PCS; principal; 2018-02-26 12:00)
DX: S72.012A Unspecified intracapsular fracture of left femur, initial encounter for closed fracture (principal); E87.1 Hypo-osmolality and hyponatremia; E11.65 Type 2 diabetes mellitus with hyperglycemia; E66.9 Obesity, unspecified; I10 Essential (primary) hypertension; W11.XXXA Fall on and from ladder, initial encounter; Y99.0 Civilian activity done for income or pay; Z68.39 Body mass index [BMI] 39.0-39.9, adult; Z79.4 Long term (current) use of insulin; Z82.0 Family history of epilepsy and other diseases of the nervous system; Z83.3 Family history of diabetes mellitus; Z87.891 Personal history of nicotine dependence
CPT/HCPCS: 36415; 71045; 72170; 73501; 80048; 80053; 80061; 81003; 82009; 83036; 84484; 85025; 85610; 85730; 90715; 93005; 93306; 96361; 96374; 99285

== ENCOUNTER → 2018-06-30 | Outpatient (CLI) | payer BC ==
[2018-06-30 14:51] LABS: Basophils % (A) 1 %; Eosinophils # (A) 0.1 k/uL (0-0.7); Eosinophils % (A) 1 %; HCT 39.9 % (39.0-53.0); HGB 13.4 gm/dL (13.0-17.5); Lymphocytes # (A) 2.1 k/uL (1.0-4.8); Lymphocytes % (A) 26 %; MCH 28.2 pg (25.0-35.0); MCHC 33.7 g/dL (31.0-37.0); MCV 83.9 fL (80.0-100.0); Mean Platelet Volume 8.2; Monocytes # (A) 0.5 k/uL (0-1.0); Monocytes % (A) 7 %; Neutrophils % (A) 63 %; Platelet Count 203 k/uL (150-450); RBC 4.76 m/uL (4.30-5.90); RDW 14.6 % (11.5-15.5); WBC 7.9 k/uL (3.8-10.6)
[2018-06-30 15:00] LABS: Anion Gap 11 mmol/L; Blood Urea Nitrogen 16 mg/dL (9-20); Calcium 9.9 mg/dL (8.4-10.2); Carbon Dioxide 27 mmol/L (22-30); Chloride 99 mmol/L (98-107); Glucose 102 mg/dL (74-99); Sodium 137 mmol/L (137-145)
== END ==
LOC: LABPAT 13:15
PROVIDERS: ATTEND Urology
DX: Z01.818 Encounter for other preprocedural examination (principal); Z01.812 Encounter for preprocedural laboratory examination; C61 Malignant neoplasm of prostate; I10 Essential (primary) hypertension; R35.0 Frequency of micturition; Z51.81 Encounter for therapeutic drug level monitoring; Z79.01 Long term (current) use of anticoagulants; Z79.899 Other long term (current) drug therapy
CPT/HCPCS: 36415; 80048; 85025; 87086; 93005

== ENCOUNTER 2018-07-07 11:03 | Inpatient (IN) | payer BC ==
--- NOTE | 2018-07-06 17:45 | P.GSHP ---
History of Present Illness H&P Date: 07/06/18 Chief Complaint: Prostate cancer The patient is a 62-year-old white male recently found to have an elevated PSA level of 9.7. STACEY revealed right sided firmness. Prostate ultrasound revealed a 34 g prostate, with diminished echogenicity on the right side at the base. Biopsies showed Hossein 7 (3+4) adenocarcinoma in 8 of 12 biopsies. All 6 right-sided biopsies were positive, all left-sided biopsies showed disease at the left base and left apex. I had a lengthy discussion with the patient, his , and 2 daughters. Alternative treatment options were reviewed, including the pros, cons, and risks associated with each. He has elected to undergo a left nerve sparing robotic-assisted laparoscopic prostatectomy (RALP) and comes for this reason. - Constitutional Constitutional: Denies chills, Denies fever - Genitourinary (Female) Genitourinary: Reports nocturia Past Medical History Past Medical History: Cancer, Diabetes Mellitus, Hypertension, Prostate Disorder Additional Past Medical History / Comment(s): PROSTATE CA CURRENTLY. NEUROPATHY BLE. History of Any Multi-Drug Resistant Organisms: None Reported Past Surgical History: Joint Replacement Additional Past Surgical History / Comment(s): Left Wrist ganglion removal. Nasal surgery 1989. TOTAL LT HIP. Past Anesthesia/Blood Transfusion Reactions: No Reported Reaction Additional Past Anesthesia/Blood Transfusion Reaction / Comment(s): Never had blood transfusions Smoking Status: Former smoker - Past Family History Mother Family Medical History: Cancer, Diabetes Mellitus Additional Family Medical History / Comment(s): Father Family Medical History: Neurologic Disorder Additional Family Medical History / Comment(s): Parkinsons Disease Sister(s) Family Medical History: Diabetes Mellitus Brother(s) Family Medical History: Diabetes Mellitus Medications and Allergies Home Medications Medication Instructions Recorded Confirmed Type Lisinopril [Zestril] 10 mg PO DAILY #30 tab 02/27/18 06/30/18 Rx Dapagliflozin Propanediol [Farxiga] 5 mg PO DAILY 06/30/18 06/30/18 History Pregabalin [Lyrica] 100 mg PO BID 06/30/18 06/30/18 History sitaGLIPtin PHOS/metFORMIN HCL 1 each PO BID 06/30/18 06/30/18 History [Janumet 50-1,000 mg Tablet] Allergies Allergy/AdvReac Type Severity Reaction Status Date / Time No Known Allergies Allergy Verified 06/30/18 18:04 Surgical - Exam - General well developed, well nourished, no distress - Neck no masses, trachea midline - Respiratory normal respiratory effort, clear to auscultation - Cardiovascular Rhythm: regular Abnormal Heart Sounds: no systolic murmur, no diastolic murmur, no rub, no S3 Gallop, no S4 Gallop, no click, no other - Abdomen Abdomen: soft, non tender, no guarding, no rigid, no rebound - Genitourinary normal penis with no external lesions, testicles non-tender - Rectum Rectum: normal sphincter tone, no masses, other (Prostate mildly enlarged with firmness at the right base) - Psychiatric oriented to time, oriented to person, oriented to place, speech is normal, memory intact Assessment and Plan (1) Malignant neoplasm of prostate Status: Acute Code(s): C61 - MALIGNANT NEOPLASM OF PROSTATE SNOMED Code(s): 610274146 Plan: Left nerve sparing robotic-assisted laparoscopic prostatectomy (RALP) with bilateral pelvic lymphadenectomy. The procedure has been reviewed in detail with the patient and his family. Potential risks include anesthesia, bleeding, infection, neurovascular injury, bowel injury, lymphocele, urinary leak, and vesical neck contracture. The patient understands the likelihood of erectile dysfunction despite preservation of the left neurovascular bundle. He is aware of the possibility of post-prostatectomy urinary incontinence, and the fact that this may fail to resolve. He also understands the possible need for adjuvant therapy. The possible need to convert to an open procedure was discussed.
[~2018-07-07 11:03] MED LIST: DEXAMETHASONE SOD PHOSPHATE 10 MG/ML 1 ML VIAL IV ONE; HEPARIN SODIUM,PORCINE 5,000 UNIT/ML 1 ML VIAL SQ ONE; MIDAZOLAM (PF) 2 MG/2 ML VIAL IV PRN; ONDANSETRON 4 MG/2 ML VIAL IVP ONE; SCOPOLAMINE 1.5MG/72HR PATCH TRANSDERM ONE; ceFAZolin IN SWFI 2 GM/20 ML SYRINGE IVP ONE; fentaNYL (PF) 50 MCG/ML 2 ML AMP IV PRN
[2018-07-07 11:44] LABS: Glucose,Whole Blood 113 mg/dL (75-99)
[2018-07-07] MEDS: LACTATED RINGERS 1,000 ML IV SCH (11:53)
[2018-07-07] MEDS ORDERED: PROPOFOL 10 MG/ML 20 ML VIAL IV ONE (12:39)
[2018-07-07] MEDS ORDERED: ePHEDrine SULFATE/0.9% NACL/PF 50 MG/5 ML SYRINGE IV ONE (12:39)
[2018-07-07] MEDS ORDERED: METOPROLOL TARTRATE 5 MG/5 ML VIAL IVP ONE (12:39)
[2018-07-07] MEDS ORDERED: fentaNYL (PF) 50 MCG/ML 2 ML AMP ONE (12:39)
[2018-07-07] MEDS ORDERED: HYDROmorphone (PF) 1 MG/ML ONE (12:39)
[2018-07-07] MEDS ORDERED: MIDAZOLAM 2 MG/2 ML VIAL ONE (12:39)
[2018-07-07] MEDS ORDERED: NEOSTIGMINE 1 MG/ML 10 ML VIAL ONE (12:39)
[2018-07-07] MEDS ORDERED: SUCCINYLCHOLINE CHLORIDE 100 MG/5 ML SYR IV ONE (12:39)
[2018-07-07] MEDS ORDERED: ROCURONIUM BROMIDE 10 MG/ML 10 ML VIAL IV ONE (12:39)
[2018-07-07] MEDS ORDERED: GLYCOPYRROLATE 0.2 MG/ML 2 ML VIAL ONE (12:39)
[2018-07-07] MEDS ORDERED: LIDOCAINE 1% INJ 10MG/ML (20 ML MDV) ONE (12:39)
[2018-07-07] MEDS ORDERED: BUPIVACAINE (PF) 0.5% 30 ML VIAL SQ ONE ×2 (13:31→16:42)
[2018-07-07] MEDS ORDERED: LACTATED RINGERS 1,000 ML IV ONE ×2 (15:08)
--- NOTE | 2018-07-07 16:55 | P.OP ---
Date of Procedure: 07/07/18 Preoperative Diagnosis: Adenocarcinoma of the prostate, clinical stage [id number] Postoperative Diagnosis: Same Procedure(s) Performed: Robotic-assisted laparoscopic prostatectomy (RALP) with bilateral pelvic lymphadenectomy Anesthesia: LEATHA Surgeon: Harjeet Mendoza Estimated Blood Loss (ml): 125 IV fluids (ml): 1,600 Pathology: other (Prostate, seminal vesicles, bilateral pelvic lymph nodes) Condition: stable Disposition: PACU Indications for Procedure: The patient is a 62-year-old white male recently found to have an elevated PSA level of 9.7. STACEY revealed right sided firmness. Prostate ultrasound revealed a 34 g prostate, with diminished echogenicity on the right side at the base. Biopsies showed Anderson 7 (3+4) adenocarcinoma in 8 of 12 biopsies. All 6 right-sided biopsies were positive, all left-sided biopsies showed disease at the left base and left apex. I had a lengthy discussion with the patient, his , and 2 daughters. Alternative treatment options were reviewed, including the pros, cons, and risks associated with each. He has elected to undergo a left nerve sparing robotic-assisted laparoscopic prostatectomy (RALP) and comes for this reason. Operative Findings: Borderline enlarged left external iliac lymph node. Otherwise no evidence of extraprostatic disease. Description of Procedure: The patient was taken in the operating room and placed in the dorsal lithotomy p osition, with his legs supported in Gallito stirrups. He was carefully positioned on a beanbag for stability. The abdomen and external genitalia were prepped and draped sterilely. A Velasco catheter was inserted. The Veress needle was passed through the anterior abdominal wall immediately cephalad to the umbilicus, and insufflation was performed to a pressure of 20 mm Hg. Once insufflation was pe rformed, the Veress needle was removed and a supraumbilical incision was made, through which a 12 mm camera port was placed. Under camera guidance, 3 8 mm robotic ports were placed, 2 on the left and one on the right. An additional 12 mm port was placed on the right lateral side for use as an bindery library technical assistant port. A 5 mm port was placed to the right of the camera port for suction. The patient was placed in Trendelenburg position, and docking was then performed to the GrabInbox Red system utilizing a 4-arm approach. The abdomen was examined. The sigmoid colon was mobilized out of the pelvis. The sigmoid colon was redundant, and the serosa of the sigmoid colon was cauterized. This was oversewn in a Lembert fashion using 3-0 silk suture. The peritoneum was incised lateral to the medial umbilical ligaments bilaterally, exposing the pubis. The peritoneum was then incised across the midline, allowing the bladder flap to be taken down. The endopelvic fascia was opened bilaterally, and muscular attachments from the urogenital diaphragm were swept away from the prostate. Bilateral pelvic lymphadenectomies were performed in the standard fashion. The peritoneal incisions were extended in a cephalad direction, and the vas deferens were divided bilaterally. Margins of dissection were the bifurcation of the iliac vessels proximally, the circumflex iliac vein distally, the external iliac artery laterally, and the obturator nerve medially. A combination of sharp and blunt dissection was used. Care was taken to avoid any neurovascular injury, and the use of monopolar electrocautery was avoided immediately adjacent to neurovascular structures. The lymphatic package was clipped distally. A single enlarged left external iliac lymph node was noted, but the remaining lymph nodes were normal in size and appearance. There were no complications. The vesical neck was incised transversely, down to the lumen. The Velasco catheter was brought out through the anterior vesical neck incision and was used for traction. The posterior aspect of the vesical neck was incised, such that the full-thickness of the vesical neck was divided. The anterior layer of the Denonvilliers fascia was incised, exposing the vas deferens. Each were isolated and divided. Next, each of the seminal vesicles were dissected away from adjacent tissues, and vascular attachments were cauterized and divided. The posterior leaf of Denonvilliers fascia was incised transversely, allowing entry into the plane between the prostate and rectum. With lateral spreading, this plane was developed down to the apex. This exposed the lateral vascular pedicles bilaterally. These were clipped and divided in an antegrade fashion, down to the apex. Wide excision was performed on the right, whereas a partial nerve sparing procedure was performed on the left. The use of electrocautery was avoided on the left to prevent thermal damage to the nerves. The remaining apical attachments were swept away from the prostate. The dorsal venous complex was incised, as well as periurethral tissue. At this point, only the urethra remained intact. This was transected immediately distal to the prostatic apex using cold scissors. The specimen was placed within a specimen bag. The dorsal venous complex was sutured using a V-Loc suture in a running fashion. The suture was passed through the periosteum of the pubis periurethral support. A second V-Loc suture was then used to place the Dale stitch, incorporating the rhabdosphincter and the edge of Denonvilliers fascia. This allowed the bladder to be taken down to the urethra, leaving the vesical neck immediately adjacent to the urethra. The vesicourethral anastomosis was then performed using a V-Loc suture in a running fashion. After completing the anastomosis, an 18-Cuban Velasco catheter was placed and approximately 150 mL of 0.9 normal saline were instilled into the bladder. No extravasation of irrigant from the vesicourethral anastomosis was noted. Hemostasis was noted at this time to be excellent, and it was thus felt that a drain was unnecessary. Surgicel was placed bilaterally over the vascular pedicles. Tisseel was sprayed into the pelvis over the vascular pedicles, dorsal vein, and vesicourethral anastomosis. The patient was returned to the supine position. Undocking was performed, and the specimen bag sutures were passed through the camera port. After removing all the ports and allowing all of the CO2 to be released from the peritoneal cavity, the camera port incision was enlarged to allow removal of the surgical specimen. The fascia of this incision was then closed using 0 Vicryl suture in an interrupted [id number] fashion. Each of the skin incisions were then closed using 4-0 Monocryl suture in a subcuticular fashion. Marcaine was injected at each of the incision sites. Dermabond was applied to each incision. The Velasco catheter was connected to gravity drainage. All sponge and needle counts were correct. The patient tolerated the procedure well was taken to the recovery room in stable condition.
[2018-07-07] MEDS ORDERED: ACETAMINOPHEN TAB 325 MG TAB PO PRN (16:59)
[2018-07-07] MEDS ORDERED: KETOROLAC 30 MG/ML 1 ML VIAL IVP PRN (16:59)
[2018-07-07] MEDS ORDERED: ONDANSETRON 4 MG/2 ML VIAL IVP PRN (16:59)
[2018-07-07 17:25] LABS: Glucose,Whole Blood 166 mg/dL (75-99)
[2018-07-07] MEDS: HYDROmorphone 0.5 MG/0.5 ML SYRINGE IVP PRN ×2 (17:35→17:52)
[2018-07-07 20:37] VITALS: BMI 31.4
[2018-07-07] MEDS: DEXTROSE 5%-0.45% NACL 1,000 ML IV SCH (20:41)
[2018-07-07] MEDS: INSULIN ASPART (NovoLOG) 100 UNIT/ML VIAL SQ SCH ×2 (20:41→21:59)
[2018-07-07 21:51] LABS: Glucose,Whole Blood 151 mg/dL (75-99)
[2018-07-07] MEDS: PREGABALIN 100 MG CAP PO SCH (21:59)
[2018-07-07] MEDS: metFORMIN 500 MG TAB PO SCH (21:59)
[2018-07-07] MEDS: HEPARIN SODIUM,PORCINE 5,000 UNIT/ML 1 ML VIAL SQ SCH (21:59)
[2018-07-07] MEDS: HYDROmorphone 1 MG/ML 1 ML SYRINGE IVP PRN (22:07)
[2018-07-08] MEDS: HYDROmorphone 1 MG/ML 1 ML SYRINGE IVP PRN (01:58)
[2018-07-08] MEDS: DEXTROSE 5%-0.45% NACL 1,000 ML IV SCH ×2 (02:01→08:29)
[2018-07-08] MEDS: LACTATED RINGERS 1,000 ML IV SCH (05:09)
--- NOTE | 2018-07-08 07:26 | P.DS ---
Providers Date of admission: 07/07/18 11:03 Attending physician: Harjeet Mendoza Primary care physician: Zack Murilloqvi Hospital Course: The patient was admitted to the hospital 07/07/2018 for robotics assisted laparoscopic prostatectomy. This was uneventful. He did well postoperatively. His vital signs are stable. His urine output is good. His pain is controlled. His abdomen is soft. The wounds look good. The urine is clear. The patient will ambulate and eat a regular diet. If he tolerates that he will be discharged home later today. He'll follow-up in the office in 10 days with for catheter removal. Pathology is pending. Postoperative i nstructions been given. Patient is good. Patient Condition at Discharge: Good Plan - Discharge Summary Discharge Rx Participant: Yes New Discharge Prescriptions: New Ciprofloxacin HCl [Cipro] 250 mg PO Q12HR #6 tablet Hydrocodone/Acetaminophen [[place] 5-325] 1 - 2 each PO Q4HR PRN #6 tab PRN Reason: Pain No Action Lisinopril [Zestril] 10 mg PO DAILY #30 tab Dapagliflozin Propanediol [Farxiga] 5 mg PO DAILY Pregabalin [Lyrica] 100 mg PO BID sitaGLIPtin PHOS/metFORMIN HCL [Janumet 50-1,000 mg Tablet] 1 tab PO BID Discharge Medication List Lisinopril [Zestril] 10 mg PO DAILY #30 tab 02/27/18 [Rx] Dapagliflozin Propanediol [Farxiga] 5 mg PO DAILY 06/30/18 [History] Pregabalin [Lyrica] 100 mg PO BID 06/30/18 [History] sitaGLIPtin PHOS/metFORMIN HCL [Janumet 50-1,000 mg Tablet] 1 tab PO BID 06/30/18 [History] Ciprofloxacin HCl [Cipro] 250 mg PO Q12HR #6 tablet 07/07/18 [Rx] Hydrocodone/Acetaminophen [[place] 5-325] 1 - 2 each PO Q4HR PRN #6 tab 07/07/18 [Rx] Follow up Appointment(s)/Referral(s): Harjeet Mendoza MD [STAFF PHYSICIAN] - 07/17/18 Activity/Diet/Wound Care/Special Instructions: Discharge home with Velas[place] catheter. Instruct patient to use overnight drainage bag as well as urinary leg bag. Okay to shower. Diet as tolerated. No lifting, driving, or strenuous activity. Reassure patient that abdominal wall ecchymosis and penoscrotal swelling are normal. Instruct patient to begin taking antibiotics on 07/16/18, one day prior to Velasco catheter removal. Discharge Disposition: HOME SELF-CARE
[2018-07-08 07:33] LABS: Glucose,Whole Blood 167 mg/dL (75-99)
[2018-07-08] MEDS: HEPARIN SODIUM,PORCINE 5,000 UNIT/ML 1 ML VIAL SQ SCH (08:27)
[2018-07-08] MEDS: metFORMIN 500 MG TAB PO SCH (08:27)
[2018-07-08] MEDS: PREGABALIN 100 MG CAP PO SCH (08:27)
[2018-07-08] MEDS: INSULIN ASPART (NovoLOG) 100 UNIT/ML VIAL SQ SCH ×2 (08:28→11:57)
[2018-07-08] MEDS ORDERED: LISINOPRIL 10 MG TAB PO SCH (09:00)
[2018-07-08] MEDS ORDERED: LINAGLIPTIN 5 MG TABLET PO SCH (09:00)
[2018-07-08] MEDS ORDERED: HYDROcodone/APAP 5-325MG 1 EACH TAB PO STA (11:14)
[2018-07-08 11:52] LABS: Glucose,Whole Blood 127 mg/dL (75-99)
[2018-07-08 14:31] VITALS: BP 99/61; PULSE 78; RESP 16; TEMP 98.3
== END 2018-07-08 15:17 | disposition home or self-care (01) | DRG 708 ==
LOC: 2ORMAIN 11:03 → 4SSUR 17:09
PROVIDERS: ADMIT Urology; ATTEND Urology
PROC: 07BC4ZZ Excision of Pelvis Lymphatic, Percutaneous Endoscopic Approach (ICD-10-PCS; principal; 2018-07-07 12:30)
PROC: 8E0W4CZ Robotic Assisted Procedure of Trunk Region, Percutaneous Endoscopic Approach (ICD-10-PCS; principal; 2018-07-07 12:30)
PROC: 0VT04ZZ Resection of Prostate, Percutaneous Endoscopic Approach (ICD-10-PCS; principal; 2018-07-07 12:30)
DX: C61 Malignant neoplasm of prostate (principal); I10 Essential (primary) hypertension; E11.40 Type 2 diabetes mellitus with diabetic neuropathy, unspecified; Z96.642 Presence of left artificial hip joint; Z98.890 Other specified postprocedural states; Z87.891 Personal history of nicotine dependence; Z82.0 Family history of epilepsy and other diseases of the nervous system; Z83.3 Family history of diabetes mellitus; Z79.84 Long term (current) use of oral hypoglycemic drugs; Z79.899 Other long term (current) drug therapy
CPT/HCPCS: 36415; 80048; 85025; 86850; 86900; 86901; 87086; 88305; 88307; 88309; 93005

== ENCOUNTER → 2018-07-31 | Outpatient (CLI) | payer BC | END | disposition home or self-care (01) | LOC: LABWHC1 12:00 | PROVIDERS: ATTEND Urology | DX: C61 Malignant neoplasm of prostate (principal) | CPT/HCPCS: 36415; 84153 ==

== ENCOUNTER → 2018-08-28 | Outpatient (CLI) | payer BC | END | disposition home or self-care (01) | LOC: LABWHC1 10:17 | PROVIDERS: ATTEND Urology | DX: C61 Malignant neoplasm of prostate (principal) | CPT/HCPCS: 36415; 84153 ==

== ENCOUNTER → 2018-10-05 | Outpatient (CLI) | payer BC | END | disposition home or self-care (01) | LOC: LABWHC1 07:51 | PROVIDERS: ATTEND Urology | DX: C61 Malignant neoplasm of prostate (principal) | CPT/HCPCS: 36415; 84153 ==

== ENCOUNTER → 2019-01-09 | Outpatient (CLI) | payer BC | END | disposition home or self-care (01) | LOC: LABWHC1 08:47 | PROVIDERS: ATTEND Radiology Radiation Oncology | DX: C61 Malignant neoplasm of prostate (principal); Z90.79 Acquired absence of other genital organ(s) | CPT/HCPCS: 36415; 84153 ==

== ENCOUNTER 2019-04-24 01:21 | Observation (INO) | payer BC ==
[2019-04-24] MEDS ORDERED: NITROGLYCERIN SL TABS 0.4 MG TAB SUBLINGUAL STA (01:42)
[2019-04-24] MEDS ORDERED: ASPIRIN 81 MG PO STA (01:42)
--- NOTE | 2019-04-24 02:12 | XR ---
EXAMINATION TYPE: XR chest 2V DATE OF EXAM: 04/24/2019 COMPARISON: 02/25/2018 HISTORY: Chest pain TECHNIQUE: FINDINGS: There is some linear density left lung base. There is mild elevation left diaphragm. Right lung is clear. There is no heart failure. Heart size is normal. There are no hilar masses. IMPRESSION: Mild atelectasis left lung base is new compared to old exam. Normal heart.
[2019-04-24 02:14] LABS: Basophils % (A) 0 %; Eosinophils # (A) 0.3 k/uL (0-0.7); Eosinophils % (A) 5 %; HCT 40.8 % (39.0-53.0); HGB 13.9 gm/dL (13.0-17.5); Lymphocytes # (A) 0.8 k/uL (1.0-4.8); Lymphocytes % (A) 15 %; MCH 29.5 pg (25.0-35.0); MCHC 34.1 g/dL (31.0-37.0); MCV 86.3 fL (80.0-100.0); Mean Platelet Volume 8.9; Monocytes # (A) 0.4 k/uL (0-1.0); Monocytes % (A) 7 %; Neutrophils % (A) 72 %; Platelet Count 124 k/uL (150-450); RBC 4.73 m/uL (4.30-5.90); RDW 13.1 % (11.5-15.5); WBC 5.5 k/uL (3.8-10.6)
[2019-04-24 02:18] LABS: Partial Thromboplastin Time 24.8 sec (22.0-30.0); Prothrombin Time 10.2 sec (9.0-12.0)
[2019-04-24 02:19] LABS: ALT 17 U/L (4-49); AST 24 U/L (17-59); African American GFR (CKD) >90 (>60 ml/min/1.73 sqM); Albumin 4.3 g/dL (3.5-5.0); Alkaline Phosphatase 148 U/L (38-126); Anion Gap 10 mmol/L; Blood Urea Nitrogen 20 mg/dL (9-20); Calcium 9.3 mg/dL (8.4-10.2); Carbon Dioxide 22 mmol/L (22-30); Chloride 106 mmol/L (98-107); Glucose 121 mg/dL (74-99); Magnesium 1.9 mg/dL (1.6-2.3); Non-African American GFR(CKD) >90 (>60 ml/min/1.73 sqM); Potassium 3.7 mmol/L (3.5-5.1); Sodium 138 mmol/L (137-145); Total Bilirubin 0.7 mg/dL (0.2-1.3); Total Protein 7.1 g/dL (6.3-8.2)
--- NOTE | 2019-04-24 02:20 | ED ---
Chest Pain HPI - General Chief Complaint: Chest Pain Stated Complaint: Chest Pain Time Seen by Provider: 04/24/19 01:35 Source: patient Mode of arrival: ambulatory - History of Present Illness Initial Comments: Patient is a 63-year-old male with history of diabetes and hypertension presenting to emergency Department with a chief complaint of chest pain. States the symptoms began early this morning because he was "not feeling well". States throughout the day his developed left-sided chest pain that radiates along the periphery to his left shoulder blade. States he woke up tonight from his sleep and he felt chest pressure nor same region. He also reports dyspnea at rest but is not exacerbated on exertion. This report diaphoresis throughout the night. Denies any lightheadedness or dizziness. Denies any nausea or vomiting. Denies any headaches, blurry vision, one-sided weakness or paresthesias. He is a former smoker. No history of cardiac related early . States he had a full evaluation by Dr. Gomez 2 years ago and no significant findings. - Related Data Home Medications Medication Instructions Recorded Confirmed Dapagliflozin Propanediol [Farxiga] 5 mg PO DAILY 06/30/18 07/07/18 Pregabalin [Lyrica] 100 mg PO BID 06/30/18 07/07/18 sitaGLIPtin PHOS/metFORMIN HCL 1 tab PO BID 06/30/18 07/07/18 [Janumet 50-1,000 mg Tablet] Previous Rx's Medication Instructions Recorded Lisinopril [Zestril] 10 mg PO DAILY #30 tab 02/27/18 Ciprofloxacin HCl [Cipro] 250 mg PO Q12HR #6 tablet 07/07/18 Hydrocodone/Acetaminophen [[place] 1 - 2 each PO Q4HR PRN #6 tab 07/07/18 5-325] Allergies Allergy/AdvReac Type Severity Reaction Status Date / Time No Known Allergies Allergy Verified 04/24/19 01:33 Review of Systems ROS Statement: Those systems with pertinent positive or pertinent negative responses have been documented in the HPI. ROS Other: All systems not noted in ROS Statement are negative. EKG Findings - EKG Comments: EKG Findings:: Normal sinus rhythm, no ST changes. Ventricular rate 69, WA 156, QRS 90, QTC 430. Past Medical History Past Medical History: Diabetes Mellitus, Hypertension Additional Past Medical History / Comment(s): Newly diagnosed Diabetes this admission History of Any Multi-Drug Resistant Organisms: None Reported Past Surgical History: Joint Replacement Additional Past Surgical History / Comment(s): Left Wrist ganglion removal, Nasa l surgery 1989 Past Anesthesia/Blood Transfusion Reactions: No Reported Reaction Additional Past Anesthesia/Blood Transfusion Reaction / Comment(s): Never had blood transfusions Past Psychological History: No Psychological Hx Reported Smoking Status: Former smoker Past Alcohol Use History: Occasional Past Drug Use History: None Reported - Past Family History Mother Family Medical History: Cancer, Diabetes Mellitus Additional Family Medical History / Comment(s): Father Family Medical History: Diabetes Mellitus, Neurologic Disorder Additional Family Medical History / Comment(s): Parkinsons Disease Sister(s) Family Medical History: Diabetes Mellitus Brother(s) Family Medical History: Diabetes Mellitus General Exam Limitations: no limitations General appearance: alert, in no apparent distress, obese Head exam: Present: atraumatic, normocephalic, normal inspection Eye exam: Present: normal appearance Pupils: Present: normal accommodation ENT exam: Present: normal exam Neck exam: Present: normal inspection, full ROM Respiratory exam: Present: normal lung sounds bilaterally Cardiovascular Exam: Present: regular rate, normal rhythm, normal heart sounds GI/Abdominal exam: Present: soft. 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 Chest pain for 1 day's [place] left-sided chest that feels like pressure with radiating to the back. This is not a tearing or ripping sensation. It feels more like a pressure. Does have associated shortness of breath. Episode of diaphoresis. No headaches, blurry vision, one-sided weakness or paresthesias. Initial troponin is negative. EKG shows no ST changes and looks very similar to his most recent EKG. Initial troponin is negative. CBC and CMP are unremarkable. Patient given aspirin and sublingual lecher. Reevaluation patient reports the discomfort/pressure in the chest has resolved. Patient has a Heart score of 4. And will be admitted for observation and serial troponins. Case discussed with . admitting physician is dr. walter cardiology consulted Disposition Clinical Impression: Chest pain, Shortness of breath Disposition: ADMITTED IP TO THIS HOSP Condition: Stable Instructions (If sedation given, give patient instructions): Chest Pain (ED) Additional Instructions: Patient will be admitted Is patient prescribed a controlled substance at d/c from ED?: No Referrals: Zack Babin MD [Primary Care Provider] - 1-2 days Time of Disposition: 04:00
[2019-04-24] MEDS ORDERED: NITROGLYCERIN SL TABS 0.4 MG TAB SUBLINGUAL PRN (04:00)
[2019-04-24 06:42] LABS: Glucose,Whole Blood 111 mg/dL (75-99)
[2019-04-24] MEDS ORDERED: LISINOPRIL 10 MG TAB PO SCH (09:00)
[2019-04-24 09:23] LABS: Cholesterol 147 mg/dL (<200); HDL Cholesterol 63 mg/dL (40-60); LDL Cholesterol,Calculated 69 mg/dL (0-99); Triglycerides 75 mg/dL (<150)
[2019-04-24] MEDS ORDERED: NON FORMULARY DRUG (Sitagliptin Phos/Metformin Hcl [Janumet 50-1,000 Mg Tablet] 1 TAB) PO SCH (10:30)
[2019-04-24] MEDS ORDERED: AMINOPHYLLINE 500 MG/20 ML VIAL IV PRN (10:38)
[2019-04-24] MEDS ORDERED: CAFFEINE CITRATE 60 MG/3 ML VIAL IV PRN (10:38)
[2019-04-24] MEDS ORDERED: SODIUM CHLORIDE 0.9% IV ONE (11:00)
[2019-04-24] MEDS ORDERED: DIPYRIDAMOLE IV ONE (11:00)
--- NOTE | 2019-04-24 12:02 | P.CRDCN ---
History of Present Illness History of present illness: HISTORY OF PRESENTING ILLNESS This is a pleasant 63-year-old male past medical history significant for diabetes mellitus, hypertension, dyslipidemia and former nicotine dependence. He follows in the office with Dr. Hurtado. We have been asked to see in consultation for chest pain. He states he woke up yesterday morning with a discomfort in the left precordial region. At times the pain would radiate through to his back. There is no specific aggravating or alleviating factors. His discomfort was intermittent throughout the entire day yesterday. Initially he did feel some associated mild and intermittent lightheadedness. This evening when he laid down to go to sleep his pain seemed to intensify and he then became acutely diaphoretic. His symptoms have resolved. He is currently chest pain- free. He saw Dr. Gomez in the office in September 2018 and underwent a complete cardiac workup including echocardiogram and stress test. The stress test at that time was a Cardiolite stress test for which he walked 6-1/2 minutes and had no evidence of reversible cardiac ischemia. Echocardiogram revealed normal LV systolic function with mild MR and mild TR, Holter monitor was sinus mechanism with 10% PAC burden and bilateral carotid duplex revealed intermediate disease on the left side EKG on arrival revealed sinus mechanism with incomplete right bundle branch block. Chest x-ray is negative for an acute cardiopulmonary process. Laboratory data reviewed, WBC 5.5, hemoglobin 13.9, platelets 124, d- dimer 0.24, sodium 138, potassium 3.7, creatinine 0.75, magnesium 1.9, cardiac enzymes negative 2, LDL 69. Current daily cardiac medications include atorvastatin 10 mg daily and lisinopril 10 mg daily. REVIEW OF SYSTEMS At the time of my exam: CONSTITUTIONAL: Denies fever or chills. CARDIOVASCULAR: Denies chest pain, shortness of breath, orthopnea, PND or palpitations. RESPIRATORY: Denies cough. GASTROINTESTINAL: Denies abdominal pain, diarrhea, constipation, nausea or vomiting. MUSCULOSKELETAL: Denies myalgias. NEUROLOGIC: Denies numbness, tingling or weakness. ENDOCRINE: Denies fatigue, weight change, polydipsia or polyurina. GENITOURINARY: Denies burning, hematuria or urgency with micturation. HEMATOLOGIC: Denies history of anemia or bleeding. PHYSICAL EXAMINATION Blood pressure 138/73 heart rate 55 afebrile and maintaining oxygen saturation on room air. CONSTITUTIONAL: No apparent distress. HEENT: Head is normocephalic. Pupils are equal, round. Sclerae anicteric. Mucous membranes of the mouth are moist. No JVD. No carotid bruit. CHEST EXAMINATION: Lungs are clear to auscultation. No chest wall tenderness is noted on palpation or with deep breathing. HEART EXAMINATION: Regular rate and rhythm. S1, S2 heard. Faint systolic ejection murmur at the left sternal border, no gallops or rub. ABDOMEN: Soft, nontender. Positive bowel sounds. EXTREMITIES: 2+ peripheral pulses, no lower extremity edema and no calf tenderness. NEUROLOGIC EXAMINATION: Patient is awake, alert and oriented x3. ASSESSMENT Chest pain, atypical for angina. An acute coronary event has been ruled out. Hypertension Dyslipidemia Diabetes mellitus Former nicotine dependence Peripheral vascular disease, 50-79% stenosis of the left internal carotid artery PLAN An acute coronary event has been ruled out. Obtain 2-D echocardiogram and Doppler study to assess cardiac structure and function. Perform Persantine stress test to assess for reversible cardiac ischemia. Optimize his medical management by increasing lisinopril to 10 mg twice a day and atorvastatin 20 mg daily. If there is abnormalities noted on the stress test we will pursue coronary angiography, stress test is normal he may be discharged from a cardiac perspective to follow-up with Dr. Gomez in the office. Thank you kindly for this consultation. Nurse Practitioner note has been reviewed, I agree with a documented findings and plan of care. Patient was seen and examined. Past Medical History Past Medical History: Cancer, Diabetes Mellitus, Hypertension, Prostate Disorder Additional Past Medical History / Comment(s): Newly diagnosed Diabetes this admission History of Any Multi-Drug Resistant Organisms: None Reported Past Surgical History: Joint Replacement Additional Past Surgical History / Comment(s): L HIP. Left Wrist ganglion removal, Nasal surgery 1989 Past Anesthesia/Blood Transfusion Reactions: No Reported Reaction Additional Past Anesthesia/Blood Transfusion Reaction / Comment(s): Never had blood transfusions Past Psychological History: No Psychological Hx Reported Smoking Status: Former smoker Past Alcohol Use History: Occasional Additional Past Alcohol Use History / Comment(s): SMOKED 25 YEARS, 1 PPD, QUIT 02/1999 Past Drug Use History: None Reported - Past Family History Mother Family Medical History: Cancer, Diabetes Mellitus Additional Family Medical History / Comment(s): Father Family Medical History: Diabetes Mellitus, Neurologic Disorder Additional Family Medical History / Comment(s): Parkinsons Disease Sister(s) Family Medical History: Diabetes Mellitus Brother(s) Family Medical History: Diabetes Mellitus Medications and Allergies Home Medications Medication Instructions Recorded Confirmed Type Lisinopril [Zestril] 10 mg PO DAILY #30 tab 02/27/18 04/24/19 Rx Dapagliflozin Propanediol [Farxiga] 5 mg PO DAILY 06/30/18 04/24/19 History Pregabalin [Lyrica] 100 mg PO TID 06/30/18 04/24/19 History sitaGLIPtin PHOS/metFORMIN HCL 1 tab PO BID 06/30/18 04/24/19 History [Janumet 50-1,000 mg Tablet] Atorvastatin [Lipitor] 10 mg PO HS 04/24/19 04/24/19 History Cholecalciferol [Vitamin D3 (25 1,000 unit PO DAILY 04/24/19 04/24/19 History Mcg = 1000 Iu)] Allergies Allergy/AdvReac Type Severity Reaction Status Date / Time No Known Allergies Allergy Verified 04/24/19 09:38 Physical Exam Vitals: Vital Signs Temp Pulse Pulse Pulse Resp BP BP 04/24/19 07:25 97.8 F 55 L 18 138/73 04/24/19 05:46 58 L 18 04/24/19 05:00 97.8 F 58 L 18 133/70 04/24/19 01:59 67 18 166/88 04/24/19 01:41 65 04/24/19 01:29 97.9 F 67 19 180/88 Pulse Ox 04/24/19 07:25 99 04/24/19 05:46 04/24/19 05:00 98 04/24/19 01:59 97 04/24/19 01:41 04/24/19 01:29 98 Intake and Output 04/23/19 04/24/19 04/24/19 22:59 06:59 14:59 Other: # Voids 1 Weight 94.1 kg Results 04/24/19 01:54 04/24/19 01:54 Cardiac Enzymes 04/24/19 04/24/19 04/24/19 Range/Units 01:54 01:54 06:46 AST 24 (17-59) U/L Troponin I <0.012 <0.012 (0.000-0.034) ng/mL Coagulation 04/24/19 Range/Units 01:54 PT 10.2 (9.0-12.0) sec APTT 24.8 (22.0-30.0) sec CBC 04/24/19 Range/Units 01:54 WBC 5.5 (3.8-10.6) k/uL RBC 4.73 (4.30-5.90) m/uL Hgb 13.9 (13.0-17.5) gm/dL Hct 40.8 (39.0-53.0) % Plt Count 124 L (150-450) k/uL Comprehensive Metabolic Panel 04/24/19 Range/Units 01:54 Sodium 138 (137-145) mmol/L Potassium 3.7 (3.5-5.1) mmol/L Chloride 106 (98-107) mmol/L Carbon Dioxide 22 (22-30) mmol/L BUN 20 (9-20) mg/dL Creatinine 0.75 (0.66-1.25) mg/dL Glucose 121 H (74-99) mg/dL Calcium 9.3 (8.4-10.2) mg/dL AST 24 (17-59) U/L ALT 17 (4-49) U/L Alkaline Phosphatase 148 H (38-126) U/L Total Protein 7.1 (6.3-8.2) g/dL Albumin 4.3 (3.5-5.0) g/dL Current Medications Generic Name Dose Route Start Last Admin Trade Name Freq PRN Reason Stop Dose Admin Aspirin 325 mg 04/25/19 09:00 Aspirin PO DAILY DMITRY Nitroglycerin 0.4 mg 04/24/19 04:00 Nitrostat SUBLINGUAL Q5M PRN Chest Pain Intake and Output 04/23/19 04/24/19 04/24/19 22:59 06:59 14:59 Other: # Voids 1 Weight 94.1 kg 04/24/19 01:54 04/24/19 01:54
[2019-04-24 13:07] LABS: Glucose,Whole Blood 101 mg/dL (75-99)
--- NOTE | 2019-04-24 13:20 | NM ---
"EXAMINATION TYPE: NM stress persantine cardiolit DATE OF EXAM: 04/24/2019 COMPARISON: NONE HISTORY: Chest pain TECHNIQUE: After the intravenous administration of 9.5 mCi Tc 99m Sestamibi - Cardiolite resting SPE CT images acquired 45 minutes post injection. The patient received 53.6 mg Persantine, 23.9 mCi Tc 99m Sestamibi - Stress images obtained 30 minute s post injection FINDINGS: Review of stress and rest SPECT images demonstrates a perfusion abnormality involving the mid and api sandeep anterior ventricular wall that appears greater on stress than rest imaging. Gated analysis shows normal wall motion with an estimated left ventricular ejection fraction of 67 %. TID is calculated at 1.1, within normal limits. IMPRESSION: Small area of reversible ischemia of the anterior wall of the left ventricle and the mid and apical segments. Findings are suggestive of small fixed infarct with surrounding nick-infarct isc hemia. A Chambers level critical message alert has been initiated for Natanael Juarez MD via the [employer] 36 0 | Critical Results System on 04/24/2019 1:18 PM. This message alert has been sent to Natanael Juarez MD via the preferences provided by the clinician for the receipt of Radiology Critical Findings. [facility] ID [id number]."
[2019-04-24] MEDS: LINAGLIPTIN 5 MG TABLET PO SCH (14:06)
[2019-04-24] MEDS: PREGABALIN 100 MG CAP PO SCH ×3 (14:06→20:40)
[2019-04-24] MEDS: metFORMIN 500 MG TAB PO SCH ×2 (14:06→20:40)
[2019-04-24] MEDS: LISINOPRIL 10 MG TAB PO SCH (14:07)
[2019-04-24] MEDS: PATIENT'S OWN MED (Dapagliflozin Propanediol [Farxiga] 5 MG) PO SCH (14:07)
--- NOTE | 2019-04-24 15:12 | ECHOF ---
Referral Reason:cp sob MEASUREMENTS -------- HEIGHT: 165.1 cm WEIGHT: 93.9 kg BP: IVSd: 1.1 cm (0.6 - 1.1) LVIDd: 4.1 cm (3.9 - 5.3) LVPWd: 1.3 cm (0.6 - 1.1) IVSs: 1.6 cm LVIDs: 1.7 cm LVPWs: 1.8 cm LAESV Index (A-L): 34.56 ml/m Ao Diam: 3.2 cm (2.0 - 3.7) LA Diam: 4.0 cm (2.7 - 3.8) AV Cusp: 2.1 cm (1.5 - 2.6) EPSS: 0.5 cm MV E Lorenzo: 1.19 m/s MV DecT: 162 ms MV A Lorenzo: 0.67 m/s MV E/A Ratio: 1.77 RAP: 5.00 mmHg RVSP: 16.18 mmHg MV EF SLOPE: 157.98 mm/s (70 - 150) MV EXCURSION: 21.52 mm (> 18.000) TAPSE: 23.97 mm FINDINGS -------- Sinus rhythm. This was a technically good study. The left ventricular size is normal. There is mild concentric left ventricular hypertrophy. Overa ll left ventricular systolic function is normal with, an EF between 55 - 60 %. Increased LAP. Grade 2 Diastolic Dysfuntion. The right ventricle is normal in size. The right ventricular systolic function is normal. LA is moderately dilated 34-39 ml/m2 The right atrial size is normal. Aortic valve is trileaflet and is mildly thickened. The mitral valve is normal. The mitral valve leaflets are mildly thickened. Mild mitral regurgita tion is present. The tricuspid valve appears structurally normal. Trace tricuspid regurgitation present. Right fina tricular systolic pressure is normal at < 35 mmHg. There is no pulmonic regurgitation present. The aortic root size is normal. Normal inferior vena cava with normal inspiratory collapse consistent with estimated right atrial pre ssure of 5 mmHg. There is a trivial pericardial effusion present. CONCLUSIONS -------- 1. Sinus rhythm. 2. This was a technically good study. 3. The left ventricular size is normal. 4. There is mild concentric left ventricular hypertrophy. 5. Overall left ventricular systolic function is normal with, an EF between 55 - 60 %. 6. Increased LAP. Grade 2 Diastolic Dysfuntion. 7. The right ventricle is normal in size. 8. The right ventricular systolic function is normal. 9. LA is moderately dilated 34-39 ml/m2 10. The right atrial size is normal. 11. Aortic valve is trileaflet and is mildly thickened. 12. The mitral valve is normal. 13. The mitral valve leaflets are mildly thickened. 14. Mild mitral regurgitation is present. 15. The tricuspid valve appears structurally normal. 16. Trace tricuspid regurgitation present. 17. Right ventricular systolic pressure is normal at < 35 mmHg. 18. There is no pulmonic regurgitation present. 19. The aortic root size is normal. 20. Normal inferior vena cava with normal inspiratory collapse consistent with estimated right atrial pressure of 5 mmHg. 21. There is a trivial pericardial effusion present. DEMONSTRATOR SEWING TECHNIQUES: Laura Wright RDCS
--- NOTE | 2019-04-24 15:51 | P.PN ---
Progress Note - Text Stress test results discussed with the patient and his daughter in great detail. We recommend proceeding with coronary angiography. I have discussed the risks, benefits and alternative therapies for the above-mentioned procedure and for both sedation/analgesia as well as necessary blood product administration, if indicated, as they pertain to this patient. The patient has indicated understanding and acceptance of the risks and procedures discussed. Questions have been answered appropriately and he is agreeable to move forward with the above stated procedure.
[2019-04-24] MEDS ORDERED: ALPRAZolam 0.5 MG TAB PO PRN (15:52)
[2019-04-24] MEDS ORDERED: SODIUM CHLORIDE 0.9% 1,000 ML in EMPTY BAG 1 BAG IV ONE (15:52)
[2019-04-24] MEDS ORDERED: ALPRAZolam 0.25 MG TAB PO PRN (15:52)
--- NOTE | 2019-04-24 16:29 | EST ---
EXERCISE STRESS AGE: 63 SEX: Male. HT: 65 WT: 207 PROTOCOL: Persantine Cardiolite STAGE: DURATION OF EXERCISE: HEART RATE REST: 56 BLOOD PRESSURE REST: 141/74 MAXIMUM HEART RATE ACHIEVED: 71 MAXIMUM BLOOD PRESSURE: 141/74 85% MPHR: 100% MPHR: METS: INDICATIONS: Chest pain. CLINICAL INFORMATION: Patient with chest pain. This is a Persantine Cardiolite stress test. Baseline heart rate 56 beats per minute. Baseline blood pressure 141/74 mmHg. Baseline 12-lead ECG showed normal sinus rhythm with normal cardiac intervals. Patient received Persantine infusion per protocol. There was no change in heart rate or blood pressure. No ECG evidence for ischemia. No arrhythmias noted. Occasional PVCs. Nuclear portion will be reported separately. MMODL / IJN: [id number] /
[2019-04-24 16:42] LABS: Glucose,Whole Blood 131 mg/dL (75-99)
--- NOTE | 2019-04-24 17:59 | P.HPIM ---
History of Present Illness H&P Date: 04/24/19 Chief Complaint: Chest pain History of presenting complaint: This is a very pleasant 63-year-old patient of Dr. DONATO chronic stable medical conditions include hypertension, diabetes, hyperlipidemia. Had a history of prostate cancer treated with surgery. Yesterday morning patient developed left anterior precordial chest pressure. With Medrol dose pack and patient's symp toms progressively got worse also short of breath. Patient's symptoms became much worse at night. Associated with dizziness lightheadedness perspiration. Decided to come to the ER. Troponins were positive. Admitted for the same. No prior cardiac history. Review of systems: GEN.: Tired EYES: None HEENT: None NECK: None RESPIRATORY: As above CARDIOVASCULAR: [As above GASTROINTESTINAL: None GENITOURINARY: None MUSCULOSKELETAL: None LYMPHATICS: None HEMATOLOGICAL: None PSYCHIATRY: None NEUROLOGICAL: None. Past medical history to include: Prostate cancer, hypertension, diabetes, Social history: Smoked a pack a day for 25 years stopped in 1999. Patient is a power press operator. . Up about 6 years ago used to drink half a fifth of whiskey every day. Physical examination: VITAL SIGNS: 97.9, 67, 19, 166/88, 97% on room air GENERAL: BMI 34.5, sitting up comfortable. EYES: Pupils equal. Conjunctiva normal. HEENT: External appearance of nose and ears normal, oral cavity grossly normal. NECK: JVD not raised; masses not palpable. HEART: First and second heart sounds are normal; no edema. LUNGS: Respiratory rate normal; clear to auscultation. ABDOMEN: Soft, nontender, liver spleen not palpable, no masses palpable. PSYCH: Alert and oriented x3; mood and affect normal. NEUROLOGICAL: Cranial nerves grossly intact; no facial asymmetry, power and sensation grossly intact. LYMPHATICS: No lymph nodes palpable in the axilla and neck INVESTIGATIONS, reviewed in the clinical context: White count 5.5 hemoglobin 13.9 platelets 124 potassium 3.7 creatinine 0.75 LDL 69 EKG tracing personally reviewed by me-normal sinus rhythm Chest x-ray film personally reviewed by me-lungs clear Troponin negative Assessment: -Unstable angina in a patient with cardiac sounding presentation. Troponin negative. EKG unremarkable. Suspect left main/LAD disease -Diabetes mellitus type 2 on oral hypoglycemic -Essential hypertension -Hyperlipidemia -Obesity BMI 34.5 Plan: Patient is on aspirin. Home medications resumed. Nuclear stress test was ordered. Seen by cardiogenic. Accu-Cheks will be followed. Care was discussed with the patient and daughter the bedside. Questions were answered. Past Medical History Past Medical History: Cancer, Diabetes Mellitus, Hypertension, Prostate Disorder Additional Past Medical History / Comment(s): Newly diagnosed Diabetes this admission History of Any Multi-Drug Resistant Organisms: None Reported Past Surgical History: Joint Replacement Additional Past Surgical History / Comment(s): L HIP. Left Wrist ganglion removal, Nasal surgery 1989 Past Anesthesia/Blood Transfusion Reactions: No Reported Reaction Additional Past Anesthesia/Blood Transfusion Reaction / Comment(s): Never had blood transfusions Past Psychological History: No Psychological Hx Reported Smoking Status: Former smoker Past Alcohol Use History: Occasional Additional Past Alcohol Use History / Comment(s): SMOKED 25 YEARS, 1 PPD, QUIT 02/1999 Past Drug Use History: None Reported - Past Family History Mother Family Medical History: Cancer, Diabetes Mellitus Additional Family Medical History / Comment(s): Father Family Medical History: Diabetes Mellitus, Neurologic Disorder Additional Family Medical History / Comment(s): Parkinsons Disease Sister(s) Family Medical History: Diabetes Mellitus Brother(s) Family Medical History: Diabetes Mellitus Medications and Allergies Home Medications Medication Instructions Recorded Confirmed Type Lisinopril [Zestril] 10 mg PO DAILY #30 tab 02/27/18 04/24/19 Rx Dapagliflozin Propanediol [Farxiga] 5 mg PO DAILY 06/30/18 04/24/19 History Pregabalin [Lyrica] 100 mg PO TID 06/30/18 04/24/19 History sitaGLIPtin PHOS/metFORMIN HCL 1 tab PO BID 06/30/18 04/24/19 History [Janumet 50-1,000 mg Tablet] Atorvastatin [Lipitor] 10 mg PO HS 04/24/19 04/24/19 History Cholecalciferol [Vitamin D3 (25 1,000 unit PO DAILY 04/24/19 04/24/19 History Mcg = 1000 Iu)] Allergies Allergy/AdvReac Type Severity Reaction Status Date / Time No Known Allergies Allergy Verified 04/24/19 09:38 Physical Exam Vitals: Vital Signs Temp Pulse Pulse Pulse Resp BP BP 04/24/19 07:25 97.8 F 55 L 18 138/73 04/24/19 05:46 58 L 18 04/24/19 05:00 97.8 F 58 L 18 133/70 04/24/19 01:59 67 18 166/88 04/24/19 01:41 65 04/24/19 01:29 97.9 F 67 19 180/88 Pulse Ox 04/24/19 07:25 99 04/24/19 05:46 04/24/19 05:00 98 04/24/19 01:59 97 04/24/19 01:41 04/24/19 01:29 98 Intake and Output 04/23/19 04/24/19 04/24/19 22:59 06:59 14:59 Other: # Voids 1 Weight 94.1 kg Results CBC & Chem 7: 04/24/19 01:54 04/24/19 01:54 Labs: Abnormal Lab Results - Last 24 Hours (Table) 04/24/19 04/24/19 04/24/19 Range/Units 01:54 01:54 06:39 Plt Count 124 L (150-450) k/uL Lymphocytes # 0.8 L (1.0-4.8) k/uL Glucose 121 H (74-99) mg/dL POC Glucose (mg/dL) 111 H (75-99) mg/dL Alkaline Phosphatase 148 H (38-126) U/L HDL Cholesterol (40-60) mg/dL 04/24/19 Range/Units 06:46 Plt Count (150-450) k/uL Lymphocytes # (1.0-4.8) k/uL Glucose (74-99) mg/dL POC Glucose (mg/dL) (75-99) mg/dL Alkaline Phosphatase (38-126) U/L HDL Cholesterol 63 H (40-60) mg/dL Thrombosis Risk Factor Assmnt - Choose All That Apply Any of the Below Risk Factors Present?: Yes Each Factor Represents 1 point: Acute NM, Obesity (BMI >25) Other Risk Factors: Yes Each Risk Factor Represents 2 Points: Age 61-74 years Other congenital or acquired thrombophilia - If yes, enter type in comment: No Thrombosis Risk Factor Assessment Total Risk Factor Score: 4 Thrombosis Risk Factor Assessment Level: Moderate Risk
[2019-04-24 20:02] LABS: Glucose,Whole Blood 136 mg/dL (75-99)
[2019-04-24] MEDS ORDERED: ATORVASTATIN 20 MG TAB PO SCH (21:00)
[2019-04-24] MEDS ORDERED: ATORVASTATIN 10 MG TAB PO SCH (21:00)
[2019-04-25 06:40] LABS: Glucose,Whole Blood 110 mg/dL (75-99)
[2019-04-25] MEDS: metFORMIN 500 MG TAB PO SCH (07:31)
[2019-04-25] MEDS: ASPIRIN 81 MG PO SCH (07:31)
[2019-04-25] MEDS: LINAGLIPTIN 5 MG TABLET PO SCH (07:31)
[2019-04-25] MEDS: LISINOPRIL 10 MG TAB PO SCH ×2 (07:32→20:24)
[2019-04-25] MEDS: PATIENT'S OWN MED (Dapagliflozin Propanediol [Farxiga] 5 MG) PO SCH (07:32)
[2019-04-25] MEDS: PREGABALIN 100 MG CAP PO SCH ×3 (07:32→20:24)
[2019-04-25] MEDS: METOPROLOL TARTRATE 25 MG TAB PO SCH ×2 (07:58→20:24)
[2019-04-25] MEDS ORDERED: ASPIRIN 325 MG TAB PO SCH (09:00)
[2019-04-25] MEDS ORDERED: ASPIRIN 81 MG PO ONE (09:00)
[2019-04-25] MEDS ORDERED: LIDOCAINE 1% INJ 10MG/ML (20 ML MDV) ONE (11:02)
[2019-04-25] MEDS ORDERED: VERAPAMIL 2.5 MG/ML 2 ML AMP ONE (11:02)
[2019-04-25] MEDS ORDERED: LIDOCAINE 1% INJ 10MG/ML (20 ML MDV) SQ ONE (11:12)
[2019-04-25] MEDS ORDERED: MIDAZOLAM 2 MG/2 ML VIAL IV ONE (11:12)
[2019-04-25] MEDS ORDERED: IV FLUID CONTINUATION 600 ML IV ONE (11:13)
[2019-04-25] MEDS: VERAPAMIL SYRINGE (5 MG/10 ML) INTRAARTER ONE ×2 (11:15→11:36)
[2019-04-25] MEDS ORDERED: CLOPIDOGREL 75 MG TAB ONE (11:25)
[2019-04-25] MEDS ORDERED: BIVALIRUDIN 250 MG in SODIUM CHLORIDE 0.9% 36 ML IV ONE (11:26)
[2019-04-25] MEDS ORDERED: BIVALIRUDIN BOLUS 250 MG/50 ML IV ONE (11:26)
[2019-04-25] MEDS ORDERED: CLOPIDOGREL 75 MG TAB PO ONE (11:27)
[2019-04-25] MEDS ORDERED: NITROGLYCERIN 1000MCG/10ML SYRINGE INTRACORON ONE (11:29)
[2019-04-25] MEDS: NITROGLYCERIN 1000MCG/10ML SYRINGE INTRACORON ONE ×2 (11:29→11:35)
[2019-04-25] MEDS ORDERED: IOPAMIDOL-370 125ML BTL INJ ONE (11:35)
[2019-04-25] MEDS ORDERED: ATROPINE SULFATE 0.1 MG/ML 10ML SYRINGE IV PRN (11:44)
[2019-04-25] MEDS ORDERED: NITROGLYCERIN SL TABS 0.4 MG TAB SUBLINGUAL PRN (11:44)
[2019-04-25] MEDS ORDERED: RX INFO: IV CONTRAST WAS GIVEN 1 EACH MISC MISCELLANE PRN (11:44)
[2019-04-25] MEDS ORDERED: ZOLPIDEM 5 MG TAB PO PRN (11:44)
[2019-04-25] MEDS ORDERED: MAG HYDROX/AL HYDROX/SIMETH 30 ML CUP PO PRN (11:44)
[2019-04-25] MEDS ORDERED: SODIUM CHLORIDE 0.9% 1,000 ML IV SCH (11:45)
--- NOTE | 2019-04-25 12:09 | LTR ---
April 25, 2019 Re: Des Eid Dear Dr. Babin: Mr. Des Eid was admitted to the hospital with chest discomfort and ruled out for acute coronary event. He underwent a heart catheterization which revealed critical disease involving the second obtuse marginal branch of the left circumflex. The patient underwent successful stenting of the left circumflex with an excellent angiographic result and without any complication. Thank you for allowing me to participate in his care and please do not hesitate to call if you have any question or concern. Sincerely, MD NOAH Douglas / SASHA: [id number] /
--- NOTE | 2019-04-25 12:09 | CC ---
CARDIAC CATHETERIZATION REPORT DATE OF SERVICE: 04/25/2019 PERFORMING PHYSICIAN: Jorge Alberto Gomez MD. PROCEDURE PERFORMED: 1. Selective right and left coronary angiogram. 2. Left heart catheterization. 3. Successful stenting of the second obtuse marginal branch of left circumflex using 225 x 15 mm Xience CIRA with an excellent angiographic result and reduction of stenosis from 90% to 0%. INDICATION: This is a 63-year-old gentleman with diabetes, hypertension, and dyslipidemia, who presented to the hospital with chest discomfort and ruled out for acute coronary event. He underwent myocardial perfusion imaging stress test and that revealed reversible defect. Because of that, a heart catheterization was advised. APPROACH: Right radial artery. COMPLICATION: None. LEVEL OF SEDATION: Moderate with sedation length of 30 minutes. PROCEDURE DESCRIPTION: After obtaining an informed consent, the patient was brought to the cardiac mushroom laborer. The right radial artery was cannulated using micropuncture technique, the micropuncture wire passed easily, then I placed a 6-Gambian sheath 11 cm in the right radial artery. After that, I gave the patient 2 mg of verapamil IA. I did selective right and left coronary angiogram using JR4 and JL3.5 catheters. Left heart catheterization was performed using 6-Gambian pigtail catheter. After that, I did intervene on the left circumflex. Please see a separate paragraph for that. SELECTIVE CORONARY ANGIOGRAM: 1. The right coronary artery is a large caliber vessel and is a dominant vessel and appeared to be angiographically normal. It distally bifurcates into PDA and PLV branches, both appeared to be angiographically normal. 2. The left main is angiographically normal, it bifurcates into LCX and LAD. 3. The LCX is a large caliber vessel, it is a nondominant vessel. The proximal circumflex is angiographically normal. It gives rise into first OM branch which appeared to be angiographically normal. The mid-circumflex appeared to be angiographically normal and gives rise into a second OM branch which is about 2-5 mm vessel and has a tight lesion, appeared to be in the range of 90%. The circumflex distally appeared to be angiographically normal and gives rise into a third obtuse marginal branch which is a small caliber vessel. 4. The LAD, the proximal LAD appeared to have mild disease only. It gives rise into the first diagonal branch which appeared to have a mild ostial lesion. The mid and distal LAD appeared to be angiographically normal. HEMODYNAMICS: The LVEDP was about 16 mmHg without significant gradient across the aortic valve. PCI OF THE LCX: Anticoagulation was initiated using Angiomax. Subsequently, I did engage the left main using JL3.5 guide. I did wire OM2 using a whisper wire. After that,.I did balloon angioplasty using 2.0 x 12 mm balloon before I deployed a 225 x 15 mm Xience drug- eluting stent where the stent was positioned under fluoroscopy guidance and deployed under 12 atmospheres for 20 seconds. The following angiogram showed excellent angiographic results and the procedure was completed without any complication. POSTPROCEDURE MANAGEMENT: 1. Dual anti-platelet therapy. 2. Risk factor modifications. 3. Follow up with the patient. NOAH / SASHA: [id number] /
[2019-04-25 14:47] VITALS: RESP 18
[2019-04-25 16:56] LABS: Glucose,Whole Blood 96 mg/dL (75-99)
[2019-04-25 20:32] LABS: Glucose,Whole Blood 175 mg/dL (75-99)
[2019-04-25] MEDS ORDERED: ATORVASTATIN 80 MG TAB PO SCH (21:00)
--- NOTE | 2019-04-25 22:40 | P.PN ---
Progress Note - Text Progress Note Date: 04/25/19 Chief Complaint: Chest pain History of presenting complaint: This is a very pleasant 63-year-old patient of Dr. DONATO chronic stable medical conditions include hypertension, diabetes, hyperlipidemia. Had a history of prostate cancer treated with surgery. Yesterday morning patient developed left anterior precordial chest pressure. With Medrol dose pack and patient's symptoms progressively got worse also short of breath. Patient's symptoms became much worse at night. Associated with dizziness lightheadedness perspiration. Decided to come to the ER. Troponins were positive. Admitted for the same. No prior cardiac history. patient has been positive nuclear stress test. Today-had a cardiac catheterization. Underwent successful angioplasty stenting of the second obtuse marginal branch of the left circumflex artery. Postprocedure feeling well. Family the bedside. No chest pain no shortness of breath. Review of systems: Was done for constitutional, cardiovascular, GI, pulmonary. relevant finding as above Active Medications Al Hydroxide/Mg Hydroxide (Maalox) 30 ml PO Q4HR PRN PRN Reason: Heartburn Alprazolam (Xanax) 0.25 mg PO Q6HR PRN PRN Reason: Mild Anxiety Alprazolam (Xanax) 0.5 mg PO Q6HR PRN PRN Reason: Moderate Anxiety Last Admin: 04/24/19 23:26 Dose: 0.5 mg Documented by: Aminophylline (Aminophylline) 100 mg IV ONCE PRN PRN Reason: Patient Response Aspirin (Aspirin) 81 mg PO DAILY [facility] Last Admin: 04/25/19 07:31 Dose: 81 mg Documented by: Atorvastatin Calcium (Lipitor) 80 mg PO HS [facility] Last Admin: 04/25/19 20:24 Dose: 80 mg Documented by: Atropine Sulfate (Atropine) 0.5 mg IV ONCE PRN PRN Reason: Symptomatic Bradycardia Caffeine Citrate (Cafcit Inj) 60 mg IV ONCE PRN PRN Reason: Patient Response Clopidogrel Bisulfate (Plavix) 75 mg PO DAILY [facility] Linagliptin (Tradjenta) 5 mg PO DAILY [facility] Last Admin: 04/25/19 07:31 Dose: 5 mg Documented by: Lisinopril (Zestril) 10 mg PO BID [facility] Last Admin: 04/25/19 20:24 Dose: 10 mg Documented by: Metformin HCl (Glucophage) 1,000 mg PO BID [facility] Metoprolol Tartrate (Lopressor) 25 mg PO BID [facility] Last Admin: 04/25/19 20:24 Dose: 25 mg Documented by: Miscellaneous Information (Rx Info: Iv Contrast Was Given) 1 each MISCELLANE DAILY PRN PRN Reason: Per Protocol Stop: 04/27/19 11:44 Nitroglycerin (Nitrostat) 0.4 mg SUBLINGUAL Q5M PRN PRN Reason: Chest Pain Nitroglycerin (Nitrostat) 0.4 mg SUBLINGUAL Q5M PRN PRN Reason: Chest Pain Patient's Own Med ( Dapagliflozin Propanediol [Farxiga ] 5 Mg) 5 mg PO DAILY [facility] Last Admin: 04/25/19 07:32 Dose: 5 mg Documented by: Pregabalin (Lyrica) 100 mg PO TID [facility] Last Admin: 04/25/19 20:24 Dose: 100 mg Documented by: Zolpidem Tartrate (Ambien) 5 mg PO HS PRN PRN Reason: Insomnia Physical examination: VITAL SIGNS: 97.6, 54, 18, 129/67, 99% on room air GENERAL: BMI 34.5, city of the edge of the bed, comfortable EYES: Pupils equal. Conjunctiva normal. HEENT: External appearance of nose and ears normal, oral cavity grossly normal. NECK: JVD not raised; masses not palpable. HEART: First and second heart sounds are normal; no edema. LUNGS: Respiratory rate normal; clear to auscultation. ABDOMEN: Soft, nontender, liver spleen not palpable, no masses palpable. PSYCH: Alert and oriented x3; mood and affect normal. INVESTIGATIONS, reviewed in the clinical context: White count 5.5 hemoglobin 13.9 platelets 124 potassium 3.7 creatinine 0.75 LDL 69 EKG tracing personally reviewed by me-normal sinus rhythm Chest x-ray film personally reviewed by me-lungs clear Troponin negative Assessment: -Unstable angina -Coronary artery disease-successful stenting to the second obtuse marginal branch of left circumflex -Diabetes mellitus type 2 on oral hypoglycemic -Essential hypertension -Hyperlipidemia -Obesity BMI 34.5 Plan: care was discussed the patient and at the bedside. Question answered. encourage ambulation. Repeat BMP in the morning.
[2019-04-26 06:20] LABS: Glucose,Whole Blood 116 mg/dL (75-99)
[2019-04-26 06:34] LABS: Basophils % (A) 1 %; Eosinophils # (A) 0.2 k/uL (0-0.7); Eosinophils % (A) 6 %; HGB 12.8 gm/dL (13.0-17.5); Lymphocytes # (A) 0.5 k/uL (1.0-4.8); Lymphocytes % (A) 14 %; MCH 29.4 pg (25.0-35.0); MCHC 33.6 g/dL (31.0-37.0); MCV 87.4 fL (80.0-100.0); Mean Platelet Volume 8.8; Monocytes # (A) 0.4 k/uL (0-1.0); Monocytes % (A) 10 %; Neutrophils # (A) 2.7 k/uL (1.3-7.7); Neutrophils % (A) 67 %; Platelet Count 101 k/uL (150-450); RBC 4.35 m/uL (4.30-5.90)
[2019-04-26 07:00] LABS: African American GFR (CKD) >90 (>60 ml/min/1.73 sqM); Anion Gap 5 mmol/L; Blood Urea Nitrogen 16 mg/dL (9-20); Calcium 9.1 mg/dL (8.4-10.2); Carbon Dioxide 25 mmol/L (22-30); Chloride 107 mmol/L (98-107); Glucose 107 mg/dL (74-99); Non-African American GFR(CKD) >90 (>60 ml/min/1.73 sqM); Potassium 4.1 mmol/L (3.5-5.1); Sodium 137 mmol/L (137-145)
[2019-04-26] MEDS: PATIENT'S OWN MED (Dapagliflozin Propanediol [Farxiga] 5 MG) PO SCH (08:37)
[2019-04-26] MEDS: ASPIRIN 81 MG PO SCH (08:37)
[2019-04-26] MEDS: LISINOPRIL 10 MG TAB PO SCH (08:38)
[2019-04-26] MEDS: PREGABALIN 100 MG CAP PO SCH (08:38)
[2019-04-26] MEDS: METOPROLOL TARTRATE 25 MG TAB PO SCH (08:38)
[2019-04-26] MEDS: LINAGLIPTIN 5 MG TABLET PO SCH (08:38)
[2019-04-26 09:01] VITALS: BP 136/75; PULSE 60; TEMP 97.7
--- NOTE | 2019-04-26 09:40 | P.PN ---
Subjective Progress Note Date: 04/26/19 Principal diagnosis: Chest pain This is a pleasant 61-year-old gentleman with hypertension and dyslipidemia who was admitted to the hospital with a chest discomfort and underwent a heart catheterization and was found to have severe disease involving 0.2 of the left circumflex 50 underwent successful stenting of OM 2 with an excellent angiographic results from right radial approach. He was seen today, for a 09/17/2019. He is chest pain-free. He is going to be discharged home from the cardiovascular standpoint of view. Objective - Vital Signs Vital signs: Vital Signs Temp 97.7 F 04/26/19 08:30 Pulse 60 04/26/19 08:30 Resp 18 04/26/19 08:30 BP 136/75 04/26/19 08:30 Pulse Ox 97 04/26/19 08:30 Intake & Output 04/25/19 04/26/19 04/26/19 18:59 06:59 18:59 Intake Total 956 540 360 Output Total 575 Balance 956 -35 360 Weight 94.7 kg Intake: IV 476 Oral 480 540 360 Output: Urine 575 Other: Voiding Method Toilet # Voids 2 - Constitutional General appearance: Present: no acute distress - Respiratory Respiratory: bilateral: CTA - Cardiovascular Rhythm: regular Heart sounds: normal: S1, S2 - Labs CBC & Chem 7: 04/26/19 06:06 04/26/19 06:06 Labs: Abnormal Lab Results - Last 24 Hours (Table) 04/25/19 04/26/19 04/26/19 Range/Units 20:31 06:06 06:06 Hgb 12.8 L (13.0-17.5) gm/dL Hct 38.0 L (39.0-53.0) % Plt Count 101 L (150-450) k/uL Lymphocytes # 0.5 L (1.0-4.8) k/uL Glucose 107 H (74-99) mg/dL POC Glucose (mg/dL) 175 H (75-99) mg/dL 04/26/19 Range/Units 06:18 Hgb (13.0-17.5) gm/dL Hct (39.0-53.0) % Plt Count (150-450) k/uL Lymphocytes # (1.0-4.8) k/uL Glucose (74-99) mg/dL POC Glucose (mg/dL) 116 H (75-99) mg/dL Assessment and Plan Assessment: Assessment #1 coronary artery disease and status post PCI of the left circumflex #2 hypertension #3 dyslipidemia Plan #1 the patient can be discharged home #2 continue the current medical regimen
[2019-04-26 10:10] VITALS: BMI 34.7
[2019-04-26] MEDS ORDERED: CLOPIDOGREL 75 MG TAB PO SCH (11:00)
[2019-04-26 11:33] LABS: Glucose,Whole Blood 103 mg/dL (75-99)
[2019-04-27] MEDS ORDERED: metFORMIN 500 MG TAB PO SCH (21:00)
--- NOTE | 2019-04-28 20:54 | P.DS ---
Providers Date of admission: 04/24/19 03:54 Expected date of discharge: 04/26/19 Attending physician: Natanael Juarez Consults: 04/24/19 04:00 Consult Physician Urgent Consulting Provider: Walter Buchanan Consult Reason/Comments: Chest pain, shortness of breath, MA rule out Do you want consulting provider notified?: Yes 04/25/19 11:44 Consult Physician Routine Consulting Provider: [facility] Consult Reason/Comments: Post Interventional patient Do you want consulting provider notified?: Already Contacted Primary care physician: Zack Babin [place] [facility] Course: Chief Complaint: Chest pain History of presenting complaint: This is a very pleasant 63-year-old patient of Dr. BABIN chronic stable medical conditions include hypertension, diabetes, hyperlipidemia. Had a history of prostate cancer treated with surgery. Yesterday morning patient developed left anterior precordial chest pressure. patient's symptoms progressively got worse also short of breath. Patient's symptoms became much worse at night. Associated with dizziness lightheadedness perspiration. Decided to come to the ER. Troponins were positive. Admitted for the same. No prior cardiac history. patient has been positive nuclear stress test. cardiac catheterization. Underwent successful angioplasty stenting of the second obtuse marginal branch of the left circumflex artery. Today-Doing well. Up and about. No cardiac symptoms. Cleared by cardiology. Discussed with patient Consultations: Dr. Gomez from cardiology Physical examination: VITAL SIGNS: 97.7, 60, 18, 136/75, 97% on room air GENERAL: BMI 34.5, city of the edge of the bed, comfortable EYES: Pupils equal. Conjunctiva normal. HEENT: External appearance of nose and ears normal, oral cavity grossly normal. NECK: JVD not raised; masses not palpable. HEART: First and second heart sounds are normal; no edema. LUNGS: Respiratory rate normal; clear to auscultation. ABDOMEN: Soft, nontender, liver spleen not palpable, no masses palpable. PSYCH: Alert and oriented x3; mood and affect normal. INVESTIGATIONS, reviewed in the clinical context: White count 5.5 hemoglobin 13.9 platelets 124 potassium 3.7 creatinine 0.75 LDL 69 EKG tracing personally reviewed by me-normal sinus rhythm Chest x-ray film personally reviewed by me-lungs clear Troponin negative 2-D echo-EF 55-60% Persantine nuclear stress test-positive Assessment: -Unstable angina , POA -Procedure-Coronary artery disease-successful stenting to the second obtuse marginal branch of left circumflex -Diabetes mellitus type 2 on oral hypoglycemic -Essential hypertension -Hyperlipidemia -Obesity BMI 34.5 Disposition: Home Patient Condition at Discharge: Stable Plan - Discharge Summary Discharge Rx Participant: No New Discharge Prescriptions: New Aspirin 81 mg PO DAILY #30 chew Atorvastatin [Lipitor] 80 mg PO HS #30 tab Metoprolol Tartrate [Lopressor] 25 mg PO BID #60 tab Nitroglycerin Sl Tabs [Nitrostat] 0.4 mg SUBLINGUAL Q5M PRN #25 tab PRN Reason: Chest Pain Clopidogrel [Plavix] 75 mg PO DAILY #30 tab Continue Dapagliflozin Propanediol [Farxiga] 5 mg PO DAILY Pregabalin [Lyrica] 100 mg PO TID sitaGLIPtin PHOS/metFORMIN HCL [Janumet 50-1,000 mg Tablet] 1 tab PO BID Cholecalciferol [Vitamin D3 (25 Mcg = 1000 Iu)] 1,000 unit PO DAILY Changed Lisinopril [Zestril] 10 mg PO BID #60 tab Discontinued Atorvastatin [Lipitor] 10 mg PO HS Discharge Medication List Dapagliflozin Propanediol [Farxiga] 5 mg PO DAILY 06/30/18 [History] Pregabalin [Lyrica] 100 mg PO TID 06/30/18 [History] sitaGLIPtin PHOS/metFORMIN HCL [Janumet 50-1,000 mg Tablet] 1 tab PO BID 06/30/18 [History] Cholecalciferol [Vitamin D3 (25 Mcg = 1000 Iu)] 1,000 unit PO DAILY 04/24/19 [History] Aspirin 81 mg PO DAILY #30 chew 04/26/19 [Rx] Atorvastatin [Lipitor] 80 mg PO HS #30 tab 04/26/19 [Rx] Clopidogrel [Plavix] 75 mg PO DAILY #30 tab 04/26/19 [Rx] Lisinopril [Zestril] 10 mg PO BID #60 tab 04/26/19 [Rx] Metoprolol Tartrate [Lopressor] 25 mg PO BID #60 tab 04/26/19 [Rx] Nitroglycerin Sl Tabs [Nitrostat] 0.4 mg SUBLINGUAL Q5M PRN #25 tab 04/26/19 [Rx] Follow up Appointment(s)/Referral(s): [facility] [NON-STAFF] - (After discharge, you will follow-up with your direct mail clerk. Once you have obtained a prescription for cardiac rehab, please call [phone] to set up an evaluation.) Jorge Alberto Gomez MD [STAFF PHYSICIAN] - 05/04/19 1:30 pm Zack Babin MD [Primary Care Provider] - 05/07/19 9:00 am Patient Instructions/Handouts: *Surgery [facility] - After Heart Catheterization - Bankruptcy Paralegal Instructions, Heart Healthy Diet (DC), After Radial Heart Catheterization (GEN) Discharge/Stand Alone Forms: Work/School Release, Work/Release Restrictions Form, Work/School Release / Restrict Discharge Disposition: HOME SELF-CARE
== END 2019-04-26 13:19 | disposition home or self-care (01) ==
LOC: EC 01:21 → 1SOBS 03:54 → 3SCARD 04-25 14:17
PROVIDERS: ADMIT Hospitalist; ATTEND Hospitalist
DX: I25.110 Atherosclerotic heart disease of native coronary artery with unstable angina pectoris (principal); E11.9 Type 2 diabetes mellitus without complications; I10 Essential (primary) hypertension; E78.5 Hyperlipidemia, unspecified; E66.9 Obesity, unspecified; I25.2 Old myocardial infarction; I73.9 Peripheral vascular disease, unspecified; I65.22 Occlusion and stenosis of left carotid artery; R94.39 Abnormal result of other cardiovascular function study; J98.11 Atelectasis; I49.3 Ventricular premature depolarization; I08.3 Combined rheumatic disorders of mitral, aortic and tricuspid valves; Z68.34 Body mass index [BMI] 34.0-34.9, adult; Z87.891 Personal history of nicotine dependence; Z79.84 Long term (current) use of oral hypoglycemic drugs; Z79.899 Other long term (current) drug therapy; Z96.642 Presence of left artificial hip joint; Z98.890 Other specified postprocedural states; Z85.46 Personal history of malignant neoplasm of prostate; Z83.3 Family history of diabetes mellitus; Z80.9 Family history of malignant neoplasm, unspecified; Z82.0 Family history of epilepsy and other diseases of the nervous system
CPT/HCPCS: 93005 ×2; 99285; 36415; 93017; 93306; 93458; 85379; 80061; 80053; 80048; 83735; 84484; 85025 ×2; 85610; 85730; 71046; 78452; G0378 ×4; C9600; C1769 ×2; C1887; C1725; C1874; C1894; A9500; J2250; J2001; J0583; J1245; Q9967

== ENCOUNTER → 2019-06-29 | Outpatient (CLI) | payer BC | END | disposition home or self-care (01) | LOC: LABWHC1 08:53 | PROVIDERS: ATTEND Radiology Radiation Oncology | DX: C61 Malignant neoplasm of prostate (principal); Z90.79 Acquired absence of other genital organ(s) | CPT/HCPCS: 36415; 84153 ==

== ENCOUNTER 2020-07-25 11:19 | Inpatient (IN) | payer BC ==
[2020-07-25] MEDS ORDERED: SODIUM CHLORIDE 0.9% 1,000 ML IV STA (12:27)
--- NOTE | 2020-07-25 12:27 | ED ---
Headache HPI <Jorge Dawn - Last Filed: 07/25/20 15:19> - General Mode of arrival: ambulatory Limitations: no limitations <Mino Billingsley - Last Filed: 07/25/20 15:41> - General Chief Complaint: Headache Stated Complaint: Vision loss, Headache Time Seen by Provider: 07/25/20 12:12 - History of Present Illness Initial Comments: 64-year-old male with history of diabetes, hypertension, dyslipidemia, CAD presents to emergency Department with a chief complaint of headache and loss of vision. Patient states he developed left-sided visual loss where he could not see his left hand. States he was riding in the wrong boxes while he was at work. States this occurred around 7 AM today and lasted for about 2 hours when it gradually resolved. This was followed by a parietal headache with a gradual onset which was intense, throbbing but now has slightly subsided. He denies any one-sided weakness or paresthesias. Denies any speech difficulties or any gait instability. is also present with him states there is no other significant changes in his mental physical status. (Mino Billingsley) - Related Data Home Medications Medication Instructions Recorded Confirmed Dapagliflozin Propanediol [Farxiga] 5 mg PO DAILY 06/30/18 07/25/20 sitaGLIPtin PHOS/metFORMIN HCL 1 tab PO BID 06/30/18 07/25/20 [Janumet 50-1,000 mg Tablet] Cholecalciferol [Vitamin D3 (25 1,000 unit PO DAILY 04/24/19 07/25/20 Mcg = 1000 Iu)] Pregabalin [Lyrica] 100 mg PO TID 07/25/20 07/25/20 Previous Rx's Medication Instructions Recorded Aspirin 81 mg PO DAILY #30 chew 04/26/19 Atorvastatin [Lipitor] 80 mg PO HS #30 tab 04/26/19 Clopidogrel [Plavix] 75 mg PO DAILY #30 tab 04/26/19 Metoprolol Tartrate [Lopressor] 25 mg PO BID #60 tab 04/26/19 Nitroglycerin Sl Tabs [Nitrostat] 0.4 mg SUBLINGUAL Q5M PRN #25 tab 04/26/19 lisinopriL [Zestril] 10 mg PO BID #60 tab 04/26/19 Allergies Allergy/AdvReac Type Severity Reaction Status Date / Time No Known Allergies Allergy Verified 07/25/20 12:32 Review of Systems ROS Other: All systems not noted in ROS Statement are negative. <Jorge Dawn - Last Filed: 07/25/20 15:19> ROS Other: All systems not noted in ROS Statement are negative. <Mino Billingsley - Last Filed: 07/25/20 15:41> ROS Statement: Those systems with pertinent positive or pertinent negative responses have been documented in the HPI. Past Medical History Past Medical History: Cancer, Diabetes Mellitus, Hypertension, Prostate Disorder Additional Past Medical History / Comment(s): Newly diagnosed Diabetes this admission History of Any Multi-Drug Resistant Organisms: None Reported Past Surgical History: Joint Replacement Additional Past Surgical History / Comment(s): L HIP. Left Wrist ganglion removal, Nasal surgery 1989 Past Anesthesia/Blood Transfusion Reactions: No Reported Reaction Additional Past Anesthesia/Blood Transfusion Reaction / Comment(s): Never had blood transfusions Past Psychological History: No Psychological Hx Reported Smoking Status: Never smoker Past Alcohol Use History: Occasional Past Drug Use History: None Reported - Past Family History Mother Family Medical History: Cancer, Diabetes Mellitus Additional Family Medical History / Comment(s): Father Family Medical History: Diabetes Mellitus, Neurologic Disorder Additional Family Medical History / Comment(s): Parkinsons Disease Sister(s) Family Medical History: Diabetes Mellitus Brother(s) Family Medical History: Diabetes Mellitus <Mino Billingsley - Last Filed: 07/25/20 15:41> General Exam Limitations: no limitations General appearance: alert, in no apparent distress, obese Head exam: Present: atraumatic, normocephalic, normal inspection Eye exam: Present: normal appearance, PERRL, EOMI, other (No gross abnormalities noted on funduscopic examination) Pupils: Present: normal accommodation ENT exam: Present: normal exam, normal oropharynx, mucous membranes moist, TM's normal bilaterally, normal external ear exam Neck exam: Present: normal inspection, full ROM. Absent: tenderness, lymphadenopathy, thyromegaly Respiratory exam: Present: normal lung sounds bilaterally. Absent: respiratory distress, wheezes, rales, rhonchi, stridor, chest wall tenderness, accessory muscle use Cardiovascular Exam: Present: regular rate, normal rhythm, normal heart sounds. Absent: systolic murmur, diastolic murmur Extremities exam: Present: normal inspection, full ROM, normal capillary refill. Absent: tenderness, pedal edema, joint swelling Back exam: Present: normal inspection, full ROM. Absent: tenderness, CVA tenderness (R), CVA tenderness (L), muscle spasm, paraspinal tenderness, vertebral tenderness Neurological exam: Present: alert, oriented X3, CN II-XII intact, normal gait Expanded Patient oriented to: Present: person, place, time Speech: Present: fluid speech Cranial nerves: EOM's Intact: Normal, Gag Reflex: Normal, Tongue Deviation: Normal, Nystagmus: Normal, Facial Sensation: Normal Cerebellar function: Finger to Nose: Normal, Heel to Contreras: Normal Upper motor neuron: Pronator Drift: Normal Sensory exam: Upper Extremity Light Touch: Normal, Upper Extremity Pin Prick: Normal, Lower Extremity Light Touch: Normal, Lower Extremity Pin Prick: Normal Motor strength exam: RUE: 5, LUE: 5, RLE: 5, LLE: 5 Psychiatric exam: Present: normal affect, normal mood Skin exam: Present: warm, dry, intact, normal color <Mino Billingsley - Last Filed: 07/25/20 15:41> Course <Jorge Dawn - Last Filed: 07/25/20 15:19> Vital Signs 07/25/20 07/25/20 07/25/20 11:21 11:55 14:00 Temperature 97.5 F L Pulse Rate 55 L 55 L 55 L Respiratory 18 18 18 Rate Blood Pressure 183/76 139/55 145/76 O2 Sat by Pulse 99 98 98 Oximetry 07/25/20 15:00 Temperature Pulse Rate 54 L Respiratory 18 Rate Blood Pressure 158/77 O2 Sat by Pulse 98 Oximetry - Reevaluation(s) Reevaluation #1: 07/25/20 15:19 Case was discussed with Dr. Vogt, who will admit. (Jorge Dawn) Medical Decision Making - Lab Data Result diagrams: 07/25/20 12:43 07/25/20 12:43 <Jorge Dawn - Last Filed: 07/25/20 15:19> - Lab Data Result diagrams: 07/25/20 12:43 07/25/20 12:43 <Mino Billingsley - Last Filed: 07/25/20 15:41> - Medical Decision Making Patient reevaluated and reexamined by myself, Dr. Dawn. Patient resting comfortably in bed, symptom free at this time. Patient states he did have transient vision loss of the left visual field just from the left eye from 7 to 9 AM. No other areas of concern or involvement. CT reports reviewed. Case was discussed with Dr. Salazar, recommends aspirin, Prilosec, Lipitor and will follow up with patient. He does want patient to be admitted with MRI. He does want patient to follow up with him after discharge for possible procedure. Patient is made aware of this. Dr. Al has been paged for admission covering for Dr. Babin. I agree with PA findings. This includes diagnostic interp retation and treatment plan. (Jorge Dawn) 64-year-old male with history of dyslipidemia, hypertension, diabetes, CAD presenting to the emergency department with a chief complaint of a headache and visual loss. Patient appeared to have experienced a transient left lateral loss of vision. He is asymptomatic at this time. No other focal neurologic deficits. CBC CMP unremarkable. Coags within normal limits. Initial troponin is negative. No acute ischemic changes noted on EKG. CT of the brain without contrast is showing age-related atrophy but no other acute findings. CT angiogram of the brain and neck reveals 90% stenosis of the left internal carotid artery. There is also reduction of there is also 50% diameter reduction of the right internal carotid artery. The experiencing TIA. Patient will be admitted for further medical management. Dr. Dawn also evaluated the patient is agreement with the treatment plan. Patient will be started on Berlinta, aspirin and Lipitor per neuro interventionalists recommendation. I spoke with garnett fixer, , who does not want to be consulted for this patient but would like to see him on outpatient basis once he is discharged. Admitting physician is (Mino Billingsley) - Lab Data Lab Results 07/25/20 07/25/20 07/25/20 Range/Units 12:43 12:43 12:43 WBC 5.1 (3.8-10.6) k/uL RBC 4.18 L (4.30-5.90) m/uL Hgb 13.1 (13.0-17.5) gm/dL Hct 37.9 L (39.0-53.0) % MCV 90.7 (80.0-100.0) fL MCH 31.3 (25.0-35.0) pg MCHC 34.5 (31.0-37.0) g/dL RDW 15.4 (11.5-15.5) % Plt Count 132 L (150-450) k/uL MPV 7.9 Neutrophils % 70 % Lymphocytes % 14 % Monocytes % 7 % Eosinophils % 6 % Basophils % 1 % Neutrophils # 3.6 (1.3-7.7) k/uL Lymphocytes # 0.7 L (1.0-4.8) k/uL Monocytes # 0.4 (0-1.0) k/uL Eosinophils # 0.3 (0-0.7) k/uL Basophils # 0.0 (0-0.2) k/uL PT 10.2 (9.0-12.0) sec INR 1.0 (<1.2) APTT 22.4 (22.0-30.0) sec Sodium 139 (137-145) mmol/L Potassium 4.5 (3.5-5.1) mmol/L Chloride 109 H (98-107) mmol/L Carbon Dioxide 24 (22-30) mmol/L Anion Gap 6 mmol/L BUN 17 (9-20) mg/dL Creatinine 0.73 (0.66-1.25) mg/dL Est GFR (CKD-EPI)AfAm >90 (>60 ml/min/1.73 sqM) Est GFR (CKD-EPI)NonAf >90 (>60 ml/min/1.73 sqM) Glucose 130 H (74-99) mg/dL Calcium 9.0 (8.4-10.2) mg/dL Total Bilirubin 0.6 (0.2-1.3) mg/dL AST 32 (17-59) U/L ALT 25 (4-49) U/L Alkaline Phosphatase 97 (38-126) U/L Troponin I (0.000-0.034) ng/mL Total Protein 6.7 (6.3-8.2) g/dL Albumin 4.1 (3.5-5.0) g/dL 07/25/20 Range/Units 12:43 WBC (3.8-10.6) k/uL RBC (4.30-5.90) m/uL Hgb (13.0-17.5) gm/dL Hct (39.0-53.0) % MCV (80.0-100.0) fL MCH (25.0-35.0) pg MCHC (31.0-37.0) g/dL RDW (11.5-15.5) % Plt Count (150-450) k/uL MPV Neutrophils % % Lymphocytes % % Monocytes % % Eosinophils % % Basophils % % Neutrophils # (1.3-7.7) k/uL Lymphocytes # (1.0-4.8) k/uL Monocytes # (0-1.0) k/uL Eosinophils # (0-0.7) k/uL Basophils # (0-0.2) k/uL PT (9.0-12.0) sec INR (<1.2) APTT (22.0-30.0) sec Sodium (137-145) mmol/L Potassium (3.5-5.1) mmol/L Chloride (98-107) mmol/L Carbon Dioxide (22-30) mmol/L Anion Gap mmol/L BUN (9-20) mg/dL Creatinine (0.66-1.25) mg/dL Est GFR (CKD-EPI)AfAm (>60 ml/min/1.73 sqM) Est GFR (CKD-EPI)NonAf (>60 ml/min/1.73 sqM) Glucose (74-99) mg/dL Calcium (8.4-10.2) mg/dL Total Bilirubin (0.2-1.3) mg/dL AST (17-59) U/L ALT (4-49) U/L Alkaline Phosphatase (38-126) U/L Troponin I <0.012 (0.000-0.034) ng/mL Total Protein (6.3-8.2) g/dL Albumin (3.5-5.0) g/dL - EKG Data EKG Comments: Sinus bradycardia with an incomplete right bundle branch block Ventricular rate 53, MD 162, QRS 96, QTc 426. (Mino Billingsley) Disposition <Jorge Dawn - Last Filed: 07/25/20 15:19> Is patient prescribed a controlled substance at d/c from ED?: No Time of Disposition: 15:41 <Mino Billingsley - Last Filed: 07/25/20 15:41> Clinical Impression: Transient visual loss of left eye, TIA (transient ischemic attack) Disposition: ADMITTED IP TO THIS [facility] Condition: Stable Instructions (If sedation given, give patient instructions): Acute Headache (ED) Referrals: Zack Babin MD [Primary Care Provider] - 1-2 days Ayad Spain MD [STAFF PHYSICIAN] - 1-2 days
[2020-07-25 13:02] LABS: Basophils % (A) 1 %; Eosinophils # (A) 0.3 k/uL (0-0.7); Eosinophils % (A) 6 %; HCT 37.9 % (39.0-53.0); HGB 13.1 gm/dL (13.0-17.5); Lymphocytes # (A) 0.7 k/uL (1.0-4.8); Lymphocytes % (A) 14 %; MCH 31.3 pg (25.0-35.0); MCHC 34.5 g/dL (31.0-37.0); MCV 90.7 fL (80.0-100.0); Mean Platelet Volume 7.9; Monocytes # (A) 0.4 k/uL (0-1.0); Monocytes % (A) 7 %; Neutrophils # (A) 3.6 k/uL (1.3-7.7); Neutrophils % (A) 70 %; Platelet Count 132 k/uL (150-450); RBC 4.18 m/uL (4.30-5.90); RDW 15.4 % (11.5-15.5); WBC 5.1 k/uL (3.8-10.6)
[2020-07-25 13:09] LABS: Partial Thromboplastin Time 22.4 sec (22.0-30.0); Prothrombin Time 10.2 sec (9.0-12.0)
[2020-07-25 13:13] LABS: ALT 25 U/L (4-49); AST 32 U/L (17-59); African American GFR (CKD) >90 (>60 ml/min/1.73 sqM); Albumin 4.1 g/dL (3.5-5.0); Alkaline Phosphatase 97 U/L (38-126); Anion Gap 6 mmol/L; Blood Urea Nitrogen 17 mg/dL (9-20); Carbon Dioxide 24 mmol/L (22-30); Chloride 109 mmol/L (98-107); Glucose 130 mg/dL (74-99); Non-African American GFR(CKD) >90 (>60 ml/min/1.73 sqM); Potassium 4.5 mmol/L (3.5-5.1); Sodium 139 mmol/L (137-145); Total Bilirubin 0.6 mg/dL (0.2-1.3); Total Protein 6.7 g/dL (6.3-8.2)
--- NOTE | 2020-07-25 13:33 | XR ---
EXAMINATION TYPE: XR chest 2V DATE OF EXAM: 07/25/2020 COMPARISON: 04/24/2019 HISTORY: Altered mental status, vision loss, headache, hypertension TECHNIQUE: Frontal and lateral views of the chest are obtained. FINDINGS: Low lung volumes. Multiple overlying leads. Heart size is stable, within normal limits. Mi nimal left basilar atelectasis or scarring. No pleural effusion, or pneumothorax. Mild elevation of t he left hemidiaphragm is stable. Degenerative changes of the thoracic spine. IMPRESSION: 1. Mild elevation of the left hemidiaphragm is stable. There is mild left basilar atelectasis or scar ring similar to prior exam from 04/24/2019.
--- NOTE | 2020-07-25 14:14 | CT ---
EXAMINATION TYPE: CT brain wo con DATE OF EXAM: 07/25/2020 HISTORY: Headache and visual changes. Acute onset neurologic deficit CT DLP: 1940 mGycm. Automated Exposure Control for Dose Reduction was Utilized. TECHNIQUE: CT scan of the head is performed without contrast. COMPARISON: None. FINDINGS: There is no acute intracranial hemorrhage or midline shift identified. There is mild-to-m oderate diffuse ventricular and sulcal prominence consistent with diffuse age-related cerebral atroph y. There is mild low-attenuation in the periventricular white matter consistent with chronic small v essel ischemic change. The globes are intact and the visualized sinuses are clear. IMPRESSION: No acute intracranial hemorrhage or midline shift. There is [id number] diffuse ag e-related cerebral atrophy and mild chronic small vessel ischemic change noted.
--- NOTE | 2020-07-25 14:28 | CT ---
EXAMINATION TYPE: CT angio head neck DATE OF EXAM: 07/25/2020 COMPARISON: None HISTORY: Headahe and neural changes CT DLP: 1940.1 mGycm CONTRAST: Performed with IV Contrast, patient injected with 65ml mL of Isovue 370. Combination Contrast CTA cervical carotids and [place] CTA cervical carotids with 3-D recons truction Contrast CTA of the cervical carotids was performed 3-D reconstruction imaging obtained at a separate workstation. Right carotid system: Mild plaque is seen of the right common carotid artery. There is mild plaque a lso noted at the carotid bulb and proximal ICA. Diameter reduction is estimated at 50%. ECA is vega nt. Right vertebral artery appears unremarkable. Left carotid system: Mild plaque is seen of the left common carotid artery. There is moderate plaque also noted at the carotid bulb and proximal ICA. Left ICA stenosis estimated at 90%. ECA is patent . Left vertebral artery appears unremarkable. IMPRESSION: 1. Left ICA stenosis estimated at 90%. 2. Right ICA diameter reduction at 50%. CTA [facility] [place] with 3-D reconstruction Contrast CTA of the [facility] [place] was performed 3-D reconstruction imaging obtained at a separate workstation. Examination is nondiagnostic given early termination of the the study given technical d ifficulties. Vertebrobasilar system appears patent. IMPRESSION: 1. Nondiagnostic evaluation of the [facility] [place].
[2020-07-25] MEDS ORDERED: ASPIRIN 81 MG PO STA (15:12)
[2020-07-25] MEDS ORDERED: NITROGLYCERIN SL TABS 0.4 MG TAB SUBLINGUAL PRN (18:30)
[2020-07-25] MEDS ORDERED: ALPRAZolam 0.25 MG TAB PO PRN (18:32)
[2020-07-25] MEDS ORDERED: TEMAZEPAM 15 MG CAP PO PRN (18:32)
[2020-07-25 19:17] LABS: Glucose,Whole Blood 99 mg/dL (75-99)
--- NOTE | 2020-07-25 20:06 | HP ---
HISTORY AND PHYSICAL DATE OF SERVICE: 07/25/2020 CHIEF COMPLAINTS: Headache as well as vision loss. HISTORY OF PRESENT ILLNESS: This 64-year-old gentleman with a past medical history of multiple problems, including newly diagnosed diabetes mellitus, hypertension, history of DJD, being followed by Dr. Babin in the outpatient setting, was complaining of a global headache this morning. Subsequently the patient had visual loss apparently on the left side which lasted for a couple hours. The patient was at work apparently and the patient was evaluated by primary care physician and sent to [facility] for further evaluation and treatment. There is no history of any fever, rigor or chills. No history of headache, loss of consciousness, seizures. The initial evaluation showed platelets of 132. Otherwise, CT scan of the brain which was reviewed personally by me showed no acute changes. Mild diffuse age-related changes are noted. CT angiography was also done which showed left IC stenosis estimated at 90% and right ICA at 50%. Patient is being closely monitored at this time. There is no history of any fever, rigor or chills at this time. PAST MEDICAL HISTORY: History of diabetes mellitus, hypertension, history of DJD. MEDICATIONS: Nitro, Lipitor, Janumet, Zestril, Lyrica, Lopressor, Farxiga, Plavix, vitamin D3. Doses are reviewed. ALLERGIES: NONE. FAMILY HISTORY: History of diabetes mellitus and cancer in the family. SOCIAL HISTORY: Previous history of smoking. Occasional alcohol intake. REVIEW OF SYSTEMS: ENT: As mentioned earlier. CARDIOVASCULAR SYSTEM: No angina, palpitations. RESPIRATORY SYSTEM: No cough, hemoptysis. GI: No nausea, vomiting. : No dysuria or retention. NERVOUS SYSTEM: As mentioned earlier. ALLERGY/IMMUNOLOGY: No asthma, hayfever. MUSCULOSKELETAL: As mentioned earlier. HEMATOLOGY/ONCOLOGY: No history of anemia. ENDOCRINE: Diabetes mellitus. CONSTITUTIONAL: As mentioned earlier. DERMATOLOGY: Negative. RHEUMATOLOGY: Negative. PSYCHIATRY: As mentioned earlier. PHYSICAL EXAMINATION: Patient alert and oriented x3. Pulse 55, blood pressure 160/75, respiration 18, temperature 97.2, pulse ox 98% on room air. HEENT: Conjunctivae normal. NECK: No jugular venous distention. CARDIOVASCULAR SYSTEM: S1, S2 muffled. RESPIRATORY SYSTEM: Breath sounds diminished at the bases. No rhonchi. No crackles. ABDOMEN: Soft, non-tender. No mass palpable. LEGS: No edema. No swelling. NERVOUS SYSTEM: Higher functions normal. Cranial nerves 2-12 grossly intact. Eye movements full in all directions. No visual deficits. No hemianopsia observed now. Otherwise moves all 4 limbs. No focal deficits. No signs of cerebellar incoordination. SKIN: No ulcer, rash, bleeding. JOINTS: No active deforming arthropathy. LABS: WBC 5.1, hemoglobin 13.1. Sodium 139, potassium 4.5. Platelets 132. ASSESSMENT: 1. Possible acute transient ischemic attack involving the right hemisphere causing left homonymous hemianopsia and headache. 2. Thrombocytopenia, mild. 3. Diabetes mellitus, type 2, new onset. 4. Left carotid stenosis 90% and right carotid stenosis 50%. 5. Hypertension. 6. History of degenerative joint disease. 7. History of ganglion removal. 8. Remote history of nicotine dependence. 9. Obesity with body mass index of 38.3. 10.FULL CODE. RECOMMENDATIONS AND DISCUSSION: In this 64-year-old gentleman who presented with multiple complex medical issues, we will monitor the patient closely, continue the current medications, continue symptomatic treatment. Will initiate Lipitor and aspirin. Otherwise, resume the home medications. Also recommend a neurology consultation and vascular surgery consultation as well. Prognosis is guarded because of multiple complex medical issues. Further recommendations to follow. A copy of this dictation is being forwarded to Dr. Babin, who is the primary physician. MMODL / JEFFN: [id number] /
[2020-07-25] MEDS: PREGABALIN 100 MG CAP PO SCH (20:43)
[2020-07-25] MEDS: METOPROLOL TARTRATE 25 MG TAB PO SCH (20:43)
[2020-07-25] MEDS: lisinopriL 10 MG TAB PO SCH (20:43)
[2020-07-25] MEDS: HEPARIN SODIUM,PORCINE/PF 5,000 UNIT/0.5 ML SYRINGE SQ SCH (20:43)
[2020-07-25] MEDS: metFORMIN 500 MG TAB PO SCH (20:43)
[2020-07-26 07:21] LABS: Glucose,Whole Blood 111 mg/dL (75-99)
[2020-07-26] MEDS: ATORVASTATIN 80 MG TAB PO SCH (07:55)
[2020-07-26] MEDS: LINAGLIPTIN 5 MG TABLET PO SCH (07:55)
[2020-07-26] MEDS: PANTOPRAZOLE 40 MG TABLET PO SCH (07:55)
[2020-07-26] MEDS: METOPROLOL TARTRATE 25 MG TAB PO SCH ×2 (07:55→21:02)
[2020-07-26] MEDS: ASPIRIN 81 MG PO SCH (07:55)
[2020-07-26] MEDS: metFORMIN 500 MG TAB PO SCH ×2 (07:55→21:09)
[2020-07-26] MEDS: PREGABALIN 100 MG CAP PO SCH ×3 (07:55→21:01)
[2020-07-26] MEDS: CHOLECALCIFEROL 25 MCG (1000 IU) TABLET PO SCH (07:55)
[2020-07-26] MEDS: TICAGRELOR 90 MG TAB PO SCH (07:56)
[2020-07-26] MEDS: lisinopriL 10 MG TAB PO SCH ×2 (07:56→21:02)
[2020-07-26] MEDS: HEPARIN SODIUM,PORCINE/PF 5,000 UNIT/0.5 ML SYRINGE SQ SCH ×2 (07:56→21:02)
[2020-07-26] MEDS: Dapagliflozin Propanediol [Farxiga] PO SCH (09:02)
[2020-07-26 09:15] LABS: Basophils # (A) 0.03 X 10*3/uL (0.00-0.10); Basophils % (A) 0.7 %; Eosinophils # (A) 0.25 X 10*3/uL (0.04-0.35); Eosinophils % (A) 6.1 %; HGB 12.5 g/dL (13.0-17.0); Lymphocytes # (A) 0.72 X 10*3/uL (0.90-5.00); Lymphocytes % (A) 17.4 %; MCH 30.9 pg (27.0-32.0); MCHC 33.8 g/dL (32.0-37.0); MCV 91.6 fL (80.0-97.0); Mean Platelet Volume 10.9 fL (9.5-12.2); Monocytes # (A) 0.45 X 10*3/uL (0.20-1.00); Monocytes % (A) 10.9 %; Neutrophils # (A) 2.67 X 10*3/uL (1.80-7.70); Neutrophils % (A) 64.7 %; Platelet Count 142 X 10*3/uL (140-440); RBC 4.04 X 10*6/uL (4.40-5.60); RDW 15.1 % (11.5-14.5); WBC 4.13 X 10*3/uL (4.50-10.00)
[2020-07-26 10:10] LABS: African American GFR (CKD) 116.4 (60.0-200.0); Anion Gap 9.1 mmol/L (4.00-12.00); Calcium 9.1 mg/dL (8.7-10.3); Carbon Dioxide 22.9 mmol/L (21.6-31.8); Chol/HDL Ratio 3.46; LDL Cholesterol,Calculated 72.8 mg/dL (0.0-131.0); Non-African American GFR(CKD) 100.4 (60.0-200.0); Potassium 4.1 mmol/L (3.5-5.5); VLDL Calculation 23.2 mg/dL (5.00-40.00)
[2020-07-26 11:37] LABS: Glucose,Whole Blood 113 mg/dL (75-99)
--- NOTE | 2020-07-26 12:19 | P.CNPUL ---
History of Present Illness Consult date: 07/25/20 Chief complaint: COVID 19 History of present illness: 64-year-old male patient who got admitted to the hospital because of a sudden onset visual loss and headache. We were consulted knowing that the patient was incidentally found to be positive for COVID 19. The patient was developing headache and he stated that around 7:00 in the morning he developed a sudden onset of some vision in the left. This was followed by headache that was quite intense and throbbing and for that reason the patient initially presented to his primary care physician and following that he was referred to the emergency. No difficulties with speech. No difficult with gait. No altered mentation. In the emergency, the patient had a computed tomography scan of the brain without contrast that showed age-related atrophy without any acute abnormalities. CT of the brain showed 90% stenosis of the left internal carotid artery. He was also 50% reduction in diameter of the right internal carotid artery. Patient is also known to have diabetes, hypertension and hyperlipidemia. After consulting with neurology, the patient was up at medical treatment and the patient was given antiplatelet therapy and a combination of aspirin and Brillinta. We will start on statins. Ophthalmology was consulted and the patient was admitted to the floor. In terms of his COVID-19 infection, the patient checked positive for PCR. The patient does not he was originally infected with COVID-19 back in the 2020 and he was checked for a [facility] any do not to be positive. Back then he was having some fevers and chills and some shortness of breath. Ultimately he recovered. His was also infected with COVID-19. Currently, this patient Denies having any respiratory difficulties. No cough or sputum production. No hypoxemia and pulse ox 98% on room air oxygen. Chest x-rays clear. There is some mild elevation of left hemidiaphragm. His atelectatic changes/scarring seen on previous evaluations from March 2019 Review of Systems Constitutional: Denies chills, Denies fever Eyes: left blurred vision, left decreased vision, denies as per HPI, denies bulging eye, denies diplopia, denies discharge, denies dry eye, denies irritation, denies itching, denies pain, denies photophobia, denies loss of peripheral vision, denies loss of vision, denies tunnel vision/blind spots Ears: deny: decreased hearing, ear discharge, earache, tinnitus Ears, nose, mouth and throat: Reports as per HPI Breasts: absent: as per HPI, gynecomastia Cardiovascular: Reports as per HPI Respiratory: Reports as per HPI Gastrointestinal: Reports as per HPI Genitourinary: Reports as per HPI, Reports urinary frequency Musculoskeletal: Reports as per HPI Musculoskeletal: absent: ankle pain, ankle stiffness, ankle swelling, as per HPI, elbow pain, elbow stiffness, elbow swelling, foot pain, foot stiffness, foot swelling, hand pain, hand stiffness, hand swelling, hip pain, hip stiffnes s, hip swelling, knee pain, knee stiffness, knee swelling, shoulder pain, shoulder stiffness, shoulder swelling, wrist pain, wrist stiffness, wrist swelling Integumentary: Reports as per HPI Neurological: Reports as per HPI, Reports headaches, Reports visual changes Psychiatric: Reports as per HPI Endocrine: Reports as per HPI Hematologic/Lymphatic: Reports as per HPI Allergic/Immunologic: Reports as per HPI Past Medical History Past Medical History: Coronary Artery Disease (CAD), Cancer, Chest Pain / Ang sandra, Diabetes Mellitus, Hyperlipidemia, Hypertension, Prostate Disorder Additional Past Medical History / Comment(s): prostate ca with sx and 39 radiation tx 2018, covid positive on april. History of Any Multi-Drug Resistant Organisms: None Reported Past Surgical History: Heart Catheterization With Stent, Joint Replacement Additional Past Surgical History / Comment(s): L HIP, heart cath with one stent 2019. Left Wrist ganglion removal, Nasal surgery 1989 Past Anesthesia/Blood Transfusion Reactions: No Reported Reaction Additional Past Anesthesia/Blood Transfusion Reaction / Comment(s): Never had blood transfusions Date of Last Stent Placement:: 03/2019 Past Psychological History: No Psychological Hx Reported Smoking Status: Former smoker Past Alcohol Use History: Occasional Additional Past Alcohol Use History / Comment(s): SMOKED 25 YEARS, 1 PPD, QUIT 02/1999 Past Drug Use History: None Reported - Past Family History Mother Family Medical History: Cancer, Diabetes Mellitus Additional Family Medical History / Comment(s): Father Family Medical History: Diabetes Mellitus, Neurologic Disorder Additional Family Medical History / Comment(s): Parkinsons Disease Sister(s) Family Medical History: Diabetes Mellitus Brother(s) Family Medical History: Diabetes Mellitus Medications and Allergies Home Medications Medication Instructions Recorded Confirmed Type Dapagliflozin Propanediol [Farxiga] 5 mg PO DAILY 06/30/18 07/25/20 History sitaGLIPtin PHOS/metFORMIN HCL 1 tab PO BID 06/30/18 07/25/20 History [Janumet 50-1,000 mg Tablet] Cholecalciferol [Vitamin D3 (25 1,000 unit PO DAILY 04/24/19 07/25/20 History Mcg = 1000 Iu)] Aspirin 81 mg PO DAILY #30 chew 04/26/19 07/25/20 Rx Atorvastatin [Lipitor] 80 mg PO HS #30 tab 04/26/19 07/25/20 Rx Clopidogrel [Plavix] 75 mg PO DAILY #30 tab 04/26/19 07/25/20 Rx Metoprolol Tartrate [Lopressor] 25 mg PO BID #60 tab 04/26/19 07/25/20 Rx Nitroglycerin Sl Tabs [Nitrostat] 0.4 mg SUBLINGUAL Q5M PRN #25 tab 04/26/19 07/25/20 Rx lisinopriL [Zestril] 10 mg PO BID #60 tab 04/26/19 07/25/20 Rx Pregabalin [Lyrica] 100 mg PO TID 07/25/20 07/25/20 History Allergies Allergy/AdvReac Type Severity Reaction Status Date / Time No Known Allergies Allergy Verified 07/25/20 12:32 Physical Exam Vitals: Vital Signs Temp Pulse Pulse Resp BP BP Pulse Ox 07/25/20 20:00 97.8 F 53 L 20 192/94 98 07/25/20 18:41 97.7 F 55 L 17 184/95 98 07/25/20 18:11 97.5 F L 55 L 18 166/75 98 07/25/20 18:00 55 L 18 166/75 98 07/25/20 17:00 55 L 18 159/79 98 07/25/20 16:00 54 L 18 158/77 98 07/25/20 15:00 54 L 18 158/77 98 07/25/20 14:00 55 L 18 145/76 98 07/25/20 11:55 55 L 18 139/55 98 07/25/20 11:21 97.5 F L 55 L 18 183/76 99 Intake and Output 07/25/20 07/25/20 07/25/20 06:59 14:59 22:59 Other: Weight 104.326 kg 104.326 kg Results - Laboratory Findings CBC and BMP: 07/26/20 06:04 07/26/20 06:04 PT/INR, D-dimer PT 10.2 sec (9.0-12.0) 07/25/20 12:43 INR 1.0 (<1.2) 07/25/20 12:43 Abnormal lab findings: Abnormal Labs 07/25/20 07/25/20 07/25/20 12:43 12:43 18:18 RBC 4.18 L Hct 37.9 L Plt Count 132 L Lymphocytes # 0.7 L Chloride 109 H Glucose 130 H Coronavirus (PCR) Detected A - Diagnostic Findings Chest x-ray: image reviewed Assessment and Plan Plan: 1 TIA left sided vision impairment, with evidence of bradycardia artery disease, internal, 90% on the left, 50% on the right 2 headaches 3 COVID- 19 positive, original infection was in May 16, 2020 and the patient has been persistently positive in PCR since, remains clinically asymptomatic. 4 diabetes mellitus type 2 5 hypertension 6 hyperlipidemia 7 prostate cancer 8 coronary artery disease with previous successful stenting of the OM2 branch of the left circumflex Plan The patient is still positive regards to his COVID-19 infections the patient was originally diagnosed on 05/16/2020. He is asymptomatic and this is positivity probably from viral shedding. No need for any further treatment in regards to this viral infection. He is clinically recovered. In terms of his recent TIA, is neurologically recovered and the patient is going to be seen by vascular surgery regarding the current artery stenosis. No need for pulmonary service follow-up. We will sign off the case.
--- NOTE | 2020-07-26 12:25 | P.CNNES ---
History of Present Illness Consult date: 07/26/20 Requesting physician: Eliud Giraldo Reason for Consult: Transient ischemic attack History of Present Illness: This is a 64-year-old gentleman with medical history of hypertension, dyslipidemia, coronary artery disease s/p stent, diabetes and COVID 19 pneumonia (tested positive on 05/16/2020) who presented to the emergency department on 07/25/2020 for loss of vision of left eye. Patient stated that the he was at work and then he noticed he developed left-sided visual loss which he could not see his left hand. He stated that the vision loss was on the left lateral side. Time of onset was around 7 AM on 07/25/2020. He denies of any numbness or tingling, difficulty getting his words out. and after 2 hours and symptoms resolved. He said that he was having headache in the center of the head but he denies that was anything different than his typical mild headaches. He denies of any jaw pain, any temporal headache or any pain on the temporal region. He denies of any photophobia, phonophobia, nausea or vomiting. He said that visual symptoms has not reoccurred. Patient denies of any stroke or TIA in the past. He denies of any tobacco use. He socially drinks alcohol. He is on aspirin 81 mg and Plavix 75 mg daily. He is on Lipitor 80 mg at home. Some of the workup in the hospital consisted of: Initial vital signs: Blood pressure of 183/76 heart rate of 55, respiratory of 18, temperature of 97.5 Fahrenheit oral and pulse ox of 99% room air. CT of the head is reported as no acute intracranial hemorrhage or midline shift. There is a mild to moderate diffuse age-related cerebral atrophy and mild chronic small vessel ischemic changes noted. CT angiography was reported as left ICA stenosis estimated at 90% while the right ICA diameter reduction at 50%. Otherwise nondiagnostic evaluation of the [place]. EKG is reported as sinus bradycardia. Incomplete right bundle branch block. Borderline EKG. White blood cell presentations 5.5 which is normal. Initial serum glucose is 1:30 which is unremarkable. Otherwise the rest of the chemistry panel is unremarkable. Lipid panel: Triglyceride 116, cholesterol 135, LDL 72 and HDL of 39. Da Silva virus PCR is detected Review of Systems Review of system: The 12 point system was reviewed and apparent positive and negative per HPI. Past Medical History Past Medical History: Coronary Artery Disease (CAD), Cancer, Chest Pain / Angina, Diabetes Mellitus, Hyperlipidemia, Hypertension, Prostate Disorder Additional Past Medical History / Comment(s): prostate ca with sx and 39 radiation tx 2018, covid positive on april. History of Any Multi-Drug Resistant Organisms: None Reported Past Surgical History: Heart Catheterization With Stent, Joint Replacement Additional Past Surgical History / Comment(s): L HIP, heart cath with one stent 2019. Left Wrist ganglion removal, Nasal surgery 1989 Past Anesthesia/Blood Transfusion Reactions: No Reported Reaction Additional Past Anesthesia/Blood Transfusion Reaction / Comment(s): Never had blood transfusions Date of Last Stent Placement:: 03/2019 Past Psychological History: No Psychological Hx Reported Smoking Status: Former smoker Past Alcohol Use History: Occasional Additional Past Alcohol Use History / Comment(s): SMOKED 25 YEARS, 1 PPD, QUIT 02/1999 Past Drug Use History: None Reported - Past Family History Mother Family Medical History: Cancer, Diabetes Mellitus Additional Family Medical History / Comment(s): Father Family Medical History: Diabetes Mellitus, Neurologic Disorder Additional Family Medical History / Comment(s): Parkinsons Disease Sister(s) Family Medical History: Diabetes Mellitus Brother(s) Family Medical History: Diabetes Mellitus Medications and Allergies Home Medications Medication Instructions Recorded Confirmed Type Dapagliflozin Propanediol [Farxiga] 5 mg PO DAILY 06/30/18 07/25/20 History sitaGLIPtin PHOS/metFORMIN HCL 1 tab PO BID 06/30/18 07/25/20 History [Janumet 50-1,000 mg Tablet] Cholecalciferol [Vitamin D3 (25 1,000 unit PO DAILY 04/24/19 07/25/20 History Mcg = 1000 Iu)] Aspirin 81 mg PO DAILY #30 chew 04/26/19 07/25/20 Rx Atorvastatin [Lipitor] 80 mg PO HS #30 tab 04/26/19 07/25/20 Rx Clopidogrel [Plavix] 75 mg PO DAILY #30 tab 04/26/19 07/25/20 Rx Metoprolol Tartrate [Lopressor] 25 mg PO BID #60 tab 04/26/19 07/25/20 Rx Nitroglycerin Sl Tabs [Nitrostat] 0.4 mg SUBLINGUAL Q5M PRN #25 tab 04/26/19 07/25/20 Rx lisinopriL [Zestril] 10 mg PO BID #60 tab 04/26/19 07/25/20 Rx Pregabalin [Lyrica] 100 mg PO TID 07/25/20 07/25/20 History Allergies Allergy/AdvReac Type Severity Reaction Status Date / Time No Known Allergies Allergy Verified 07/25/20 12:32 Physical Examination - Vital Signs Vital Signs: Vital Signs Temp Pulse Pulse Resp BP BP Pulse Ox 07/26/20 07:00 97.8 F 53 L 18 184/82 96 07/26/20 02:00 97.7 F 54 L 20 158/92 98 07/25/20 20:00 97.8 F 53 L 20 192/94 98 07/25/20 18:41 97.7 F 55 L 17 184/95 98 07/25/20 18:11 97.5 F L 55 L 18 166/75 98 07/25/20 18:00 55 L 18 166/75 98 07/25/20 17:00 55 L 18 159/79 98 07/25/20 16:00 54 L 18 158/77 98 07/25/20 15:00 54 L 18 158/77 98 07/25/20 14:00 55 L 18 145/76 98 07/25/20 11:55 55 L 18 139/55 98 Intake and Output 07/25/20 07/26/20 07/26/20 22:59 06:59 14:59 Other: # Voids 1 1 Weight 104.326 kg GENERAL: The patient is lying in bed and is not in acute distress. CHEST: The heart rate is regular rate rhythm. No murmurs to auscultation. LUNG: Clear to auscultation bilaterally no wheezing noted throughout. Not labored breathing. ABDOMEN/GI: Bowel sounds present in all 4 quadrants. No tenderness to palpation throughout. NEUROLOGICAL: Higher mental function: The patient is awake, alert, oriented to self, place and time. Patient is following commands. No aphasia and no neglect. Cranial nerves: The pupils are round, equal and reactive to light and accommodation. Visual merida are full to confrontation throughout. Extraocular movement is intact no nystagmus is noted. Facial sensation is normal to touch throughout. The facial strength is normal throughout. Hearing is normal bilaterally to hand rub. Tongue is midline and moved [id number] without any difficulty. No dysarthria is noted. Shoulder shrug is normal bilaterally. Motor: Gait is normal with normal arm swings. The strength is 5 over 5 throughout. Normal tone and bulk. Cerebellum: Normal finger to nose heel to chin bilaterally. Sensation: Sensation is normal to touch throughout. Reflexes (right/left): 2+ throughout. Plantars are downgoing bilaterally. Results - Laboratory Findings CBC and BMP: 07/26/20 06:04 07/26/20 06:04 Abnormal Lab Findings: Abnormal Labs 07/25/20 07/25/20 07/25/20 12:43 12:43 18:18 WBC RBC 4.18 L Hgb Hct 37.9 L RDW Plt Count 132 L Lymphocytes # 0.7 L Chloride 109 H Glucose 130 H POC Glucose (mg/dL) HDL Cholesterol Coronavirus (PCR) Detected A 07/26/20 07/26/20 07/26/20 06:04 06:04 07:18 WBC 4.13 L RBC 4.04 L Hgb 12.5 L Hct 37.0 L RDW 15.1 H Plt Count Lymphocytes # 0.72 L Chloride 110 H Glucose 130 H POC Glucose (mg/dL) 111 H HDL Cholesterol 39.0 L Coronavirus (PCR) Assessment and Plan Assessment: * Amaurosis fugax (transient left visual loss) due to symptomatic left internal carotid stenosis. I do not think this is temporal arteritis (aka Giant cell arteritis). * Symptomatic left internal carotid artery stenosis (90% per CTA of neck) * Hypertension * Positive COVID 19 P[place] (05/16/2020 was initially tested positive) * Hyperlipidemia * History of Coronary artery disease s/p stent * Plan: * CT of the head is reported as no acute intracranial hemorrhage or midline shift. There is a mild to moderate diffuse age-related cerebral atrophy and mild chronic small vessel ischemic changes noted. * CT angiography was reported as left ICA stenosis estimated at 90% while the right ICA diameter reduction at 50%. Otherwise nondiagnostic evaluation of the [place]. * Lipid panel: Triglyceride 116, cholesterol 135, LDL 72 and HDL of 39. And stroke/TIA the LDL goal is less than 70. * Currently the patient is on aspirin 81 mg and Brilinta 90 mg daily (he was on home ASA 81mg and Plavix 75mg daily. Brilinta is started by vascular surgery team). Recommend Brilinta 90mg 1 tab bid (I believe he was placed on lower dose since had mild thrombocytopenia). * Continue Lipitor 80 mg daily. * MRI of the brain with contrast, 2-D echo are ordered by the primary team. * Primary team ordered ESR and CRP. * I ordered carotid duplex. * PT, OT and MEDIA CLERK are consulted that. * Placed on every 4 hours neuro checks * Is on continous cardiac monitoring. * Vascular surgery is consulted. * Pulmonary team is consulted for COVID * We'll defer the rest of medical management to the primary team. The plan is discussed with the patient's nurse. Thank you for the consultation. Florentino Gamez MD Neuro-Hospitalist Time with Patient: Greater than 30
[2020-07-26 12:26] LABS: C Reactive Protein 1.1 mg/dL (<1.0)
--- NOTE | 2020-07-26 14:19 | MR ---
EXAMINATION TYPE: MR brain wo/w con DATE OF EXAM: 07/26/2020 COMPARISON: None HISTORY: Rule out TIA CONTRAST: Standard multiplanar, multisequence MRI departmental protocol utilizing 10 mL intravenous Gadavist ga dolinium contrast. On the diffusion images there is gyriform 18 x 10 mm area of increased signal in the right occipital lobe cortex. There is no mass effect. There is no midline shift. There is no sign of intracranial hem orrhage. There are a few scattered white matter high signal foci at the ruff-white matter junction yamel th cerebral hemispheres. Total number is approximately 10 and these measure up to 3 mm. The brainstem is intact. Corpus callosum is intact. Sella turcica appears normal. Contrast images amanda w no pathologic enhancement. There is normal enhancement of the venous sinuses. Pituitary stalk is in the midline. Optic chiasm appears normal. IMPRESSION: There is evidence of small acute cortical infarct right occipital lobe. There are a few scattered white matter high signal foci probably due to chronic small vessel ischemia .
--- NOTE | 2020-07-26 15:32 | US ---
EXAMINATION TYPE: US carotid duplex BILAT DATE OF EXAM: 07/26/2020 COMPARISON: MRI 07/26/2020, CT 07/25/2020 CLINICAL HISTORY: left carotid stenosis. EXAM MEASUREMENTS: RIGHT: Peak Systolic Velocity (PSV) cm/sec ----- Right CCA: 68.2 ----- Right ICA: 98.7 ----- Right ECA: 149.6 ICA/CCA ratio: 1.4 RIGHT: End Diastole cm/sec ----- Right CCA: 15.8 ----- Right ICA: 27.5 ----- Right ECA: 7.7 LEFT: Peak Systolic Velocity (PSV) cm/sec ----- Left CCA: 73.6 ----- Left ICA: 176.3 ----- Left ECA: 109.0 ICA/CCA ratio: 2.4 LEFT: End Diastole cm/sec ----- Left CCA: 11.5 ----- Left ICA: 46.2 ----- Left ECA: 9.1 VERTEBRALS (direction of flow): Right Vertebral: Antegrade Left Vertebral: Antegrade Rhythm: Normal Moderate/severe amount of plaque visualized bilaterally. Elevated velocities visualized left ICA IMPRESSION: There is antegrade flow in the vertebral arteries. The images and measurements suggest 5 0-70% stenosis in the left internal carotid artery and close to 50% stenosis in the right internal ca rotid artery. Criteria for Assigning % of Stenosis / Diameter reduction (Estimation based on the indirect measurements of the internal carotid artery velocities (ICA PSV). 1. Normal (no stenosis)=ICA PSV < 125 cm/s: ratio < 2.0: ICA EDV<40 cm/s. 2. Less than 50% stenosis=ICA PSV < 125 cm/s: ratio < 2.0: ICA EDV<40 cm/s. 3. 50 to 69% stenosis=ICA PSV of 125 to 230 cm/s: ration 2.0 ? 4.0: ICA EDV 40-100 cm/s. 4. Greater than 70% stenosis to near occlusion= ICA PSV > 230 cm/s: ratio > 4.0: ICA EDV > 100 cm/s. 5. Near occlusion= ICA PSV velocities may be low or undetectable: variable ratio and ICA EDV. 6. Total occlusion=unable to detect flow.
[2020-07-26 16:36] LABS: Ferritin 226.6 ng/mL (22.0-322.0)
[2020-07-26] MEDS: amLODIPine 5 MG TAB PO SCH (17:07)
--- NOTE | 2020-07-26 17:42 | PN ---
PROGRESS NOTE DATE OF SERVICE: 07/26/2020 INTERVAL HISTORY: This is an 64-year-old gentleman admitted with left homonymous hemianopia, had MRI scan which showed evidence of small acute right occipital lobe infarct. The patient is being closely monitored. Neurology and as well as Vascular Surgery is following the patient closely. The patient also had significant carotid stenosis, probably 90% on the left and as well as 50% on the right. The patient is being closely monitored. There is no history of fever, rigors, chills at this time. The patient also had recent COVID-19 infection. COVID-19 is persistently positive at this time. PAST MEDICAL HISTORY: Reviewed. REVIEW OF SYSTEMS: ENT: As mentioned earlier. CARDIOVASCULAR: No angina or palpitations. RESPIRATORY: No cough. GI: As mentioned earlier. : No dysuria. NERVOUS SYSTEM: No numbness or weakness. CURRENT MEDICATIONS: Reviewed include Xanax, aspirin, Lipitor, vitamin D, other doses and medications reviewed. PHYSICAL EXAMINATION: GENERAL: Patient is alert and oriented times three. VITAL SIGNS: Pulse 54, blood pressure 204/92, respirations 18, temperature 98, pulse ox 98% on room air. HEENT: Conjunctivae normal. NECK: No jugular venous distention. No carotid bruits. No lymph node enlargement. RESPIRATORY: Breath sounds diminished at the bases. No rhonchi, no crackles. HEART: S1 and S2, muffled. ABDOMEN: Soft, no tenderness. No masses palpable. EXTREMITIES: No edema, no swelling. NERVOUS: Higher functions as mentioned earlier. Moves all four limbs. No focal motor or sensory deficits. LYMPHATICS: No lymph nodes palpable in the neck or axillae. SKIN: No rashes. JOINTS: No active deforming arthropathy. LABS: WBC 4.3, hemoglobin 12.5. Otherwise, the C-reactive protein is 1.1, and D-dimer is 0.45. ESR is 12. ASSESSMENT: 1. Acute stroke involving the right cortical infarct in the right occipital lobe, causing left homonymous hemianopia. 2. Mild thrombocytopenia. 3. Bilateral carotid stenosis, left more than the right. 4. Diabetes mellitus type 2, newly diagnosed. 5. History of recent COVID-19. 6. Hypertension. 7. Persistent COVID-19 positive. 8. History of degenerative joint disease. 9. History of ganglion removal. 10.Remote history of nicotine dependence. 11.Obesity with body mass index of 38.6. 12.FULL CODE. RECOMMENDATIONS AND DISCUSSION: Recommend to continue current management and continue symptomatic treatment. Otherwise at this time continue the antiplatelet agent Lipitor. Closely follow with Neurology. Inflammatory markers of COVID-19 have been requested. The prognosis is extremely guarded because of multiple complex medical issues. Further recommendations to follow. MMODL / IJN: [id number] /
[2020-07-26 18:04] LABS: Glucose,Whole Blood 94 mg/dL (75-99)
[2020-07-26 21:10] LABS: Glucose,Whole Blood 108 mg/dL (75-99)
--- NOTE | 2020-07-26 22:36 | P.GSCN ---
History of Present Illness Consult date: 07/26/20 Reason for Consult: Carotid stenosis History of present illness: This is a 64-year-old gentleman with medical history of hypertension, dyslipid emia, coronary artery disease s/p stent, diabetes and COVID 19 pneumonia who presented to the emergency department on 07/25/2020 for loss of vision of left eye. Patient stated that the he was at work and then he noticed he developed left-sided visual loss. He stated that the vision loss was on the left lateral side. Symptoms resolved after 2 hours. He said that he was having headache in the center of the head but he denies that was anything different than his typical mild headaches. He denies of any jaw pain, any temporal headache or any pain on the temporal region. He denies of any photophobia, phonophobia, nausea or vomiting. He said that visual symptoms has not reoccurred. Patient denies of any stroke or TIA in the past. He denies any fevers, chills, chest pain or shortness of breath. Review of Systems All systems: negative (What is mentioned in the HPI or past medical history) Past Medical History Past Medical History: Coronary Artery Disease (CAD), Cancer, Chest Pain / Angina, Diabetes Mellitus, Hyperlipidemia, Hypertension, Prostate Disorder Additional Past Medical History / Comment(s): prostate ca with sx and 39 radiation tx 2018, covid positive on april. History of Any Multi-Drug Resistant Organisms: None Reported Past Surgical History: Heart Catheterization With Stent, Joint Replacement Additional Past Surgical History / Comment(s): L HIP, heart cath with one stent 2019. Left Wrist ganglion removal, Nasal surgery 1989 Past Anesthesia/Blood Transfusion Reactions: No Reported Reaction Additional Past Anesthesia/Blood Transfusion Reaction / Comm: Never had blood transfusions Date of Last Stent Placement:: 03/2019 Past Psychological History: No Psychological Hx Reported Smoking Status: Former smoker Past Alcohol Use History: Occasional Additional Past Alcohol Use History / Comment(s): SMOKED 25 YEARS, 1 PPD, QUIT 02/1999 Past Drug Use History: None Reported - Past Family History Mother Family Medical History: Cancer, Diabetes Mellitus Additional Family Medical History / Comment(s): Father Family Medical History: Diabetes Mellitus, Neurologic Disorder Additional Family Medical History / Comment(s): Parkinsons Disease Sister(s) Family Medical History: Diabetes Mellitus Brother(s) Family Medical History: Diabetes Mellitus Medications and Allergies Home Medications Medication Instructions Recorded Confirmed Type Dapagliflozin Propanediol [Farxiga] 5 mg PO DAILY 06/30/18 07/25/20 History sitaGLIPtin PHOS/metFORMIN HCL 1 tab PO BID 06/30/18 07/25/20 History [Janumet 50-1,000 mg Tablet] Cholecalciferol [Vitamin D3 (25 1,000 unit PO DAILY 04/24/19 07/25/20 History Mcg = 1000 Iu)] Aspirin 81 mg PO DAILY #30 chew 04/26/19 07/25/20 Rx Atorvastatin [Lipitor] 80 mg PO HS #30 tab 04/26/19 07/25/20 Rx Clopidogrel [Plavix] 75 mg PO DAILY #30 tab 04/26/19 07/25/20 Rx Metoprolol Tartrate [Lopressor] 25 mg PO BID #60 tab 04/26/19 07/25/20 Rx Nitroglycerin Sl Tabs [Nitrostat] 0.4 mg SUBLINGUAL Q5M PRN #25 tab 04/26/19 07/25/20 Rx lisinopriL [Zestril] 10 mg PO BID #60 tab 04/26/19 07/25/20 Rx Pregabalin [Lyrica] 100 mg PO TID 07/25/20 07/25/20 History Allergies Allergy/AdvReac Type Severity Reaction Status Date / Time No Known Allergies Allergy Verified 07/25/20 12:32 Surgical - Exam Vital Signs Temp Pulse Resp BP Pulse Ox 97.5 F L 55 L 18 183/76 99 07/25/20 11:21 07/25/20 11:21 07/25/20 11:21 07/25/20 11:21 07/25/20 11:21 - General well developed, well nourished, no distress - Eyes PERRL, normal ocular movement - Neck no masses - Respiratory normal expansion - Cardiovascular Rhythm: regular - Abdomen Abdomen: soft, non tender - Integumentary no rash, no growths - Neurologic No focal deficits. Tongue is midline normal coordination, normal sensation - Psychiatric oriented to time, oriented to person, oriented to place, speech is normal Results - Labs 07/26/20 06:04 07/26/20 06:04 Abnormal Lab Results - Last 24 Hours (Table) 05/07/26/20 07/26/20 Range/Units 06:04 06:04 07:18 WBC 4.13 L (4.50-10.00) X 10*3/uL RBC 4.04 L (4.40-5.60) X 10*6/uL Hgb 12.5 L (13.0-17.0) g/dL Hct 37.0 L (39.6-50.0) % RDW 15.1 H (11.5-14.5) % Lymphocytes # 0.72 L (0.90-5.00) X 10*3/uL ESR (0-15) mm/hr Chloride 110 H (96-109) mmol/L Glucose 130 H (70-110) mg/dL POC Glucose (mg/dL) 111 H (75-99) mg/dL C-Reactive Protein (<1.0) mg/dL HDL Cholesterol 39.0 L (40.0-60.0) mg/dL 07/26/20 07/26/20 07/26/20 Range/Units 11:35 11:41 11:41 WBC (4.50-10.00) X 10*3/uL RBC (4.40-5.60) X 10*6/uL Hgb (13.0-17.0) g/dL Hct (39.6-50.0) % RDW (11.5-14.5) % Lymphocytes # (0.90-5.00) X 10*3/uL ESR 22 H (0-15) mm/hr Chloride (96-109) mmol/L Glucose (70-110) mg/dL POC Glucose (mg/dL) 113 H (75-99) mg/dL C-Reactive Protein 1.1 H (<1.0) mg/dL HDL Cholesterol (40.0-60.0) mg/dL 07/26/20 Range/Units 21:08 WBC (4.50-10.00) X 10*3/uL RBC (4.40-5.60) X 10*6/uL Hgb (13.0-17.0) g/dL Hct (39.6-50.0) % RDW (11.5-14.5) % Lymphocytes # (0.90-5.00) X 10*3/uL ESR (0-15) mm/hr Chloride (96-109) mmol/L Glucose (70-110) mg/dL POC Glucose (mg/dL) 108 H (75-99) mg/dL C-Reactive Protein (<1.0) mg/dL HDL Cholesterol (40.0-60.0) mg/dL Diabetes panel 07/26/20 Range/Units 06:04 Sodium 142 (135-145) mmol/L Potassium 4.1 (3.5-5.5) mmol/L Chloride 110 H (96-109) mmol/L Carbon Dioxide 22.9 (21.6-31.8) mmol/L BUN 14.0 (9.0-27.0) mg/dL Creatinine 0.7 (0.6-1.5) mg/dL Glucose 130 H (70-110) mg/dL Calcium 9.1 (8.7-10.3) mg/dL Triglycerides 116.0 (0.0-149.0) mg/dL HDL Cholesterol 39.0 L (40.0-60.0) mg/dL Calcium panel 07/26/20 Range/Units 06:04 Calcium 9.1 (8.7-10.3) mg/dL Pituitary panel 07/26/20 Range/Units 06:04 Sodium 142 (135-145) mmol/L Potassium 4.1 (3.5-5.5) mmol/L Chloride 110 H (96-109) mmol/L Carbon Dioxide 22.9 (21.6-31.8) mmol/L BUN 14.0 (9.0-27.0) mg/dL Creatinine 0.7 (0.6-1.5) mg/dL Glucose 130 H (70-110) mg/dL Calcium 9.1 (8.7-10.3) mg/dL Adrenal panel 07/26/20 Range/Units 06:04 Sodium 142 (135-145) mmol/L Potassium 4.1 (3.5-5.5) mmol/L Chloride 110 H (96-109) mmol/L Carbon Dioxide 22.9 (21.6-31.8) mmol/L BUN 14.0 (9.0-27.0) mg/dL Creatinine 0.7 (0.6-1.5) mg/dL Glucose 130 H (70-110) mg/dL Calcium 9.1 (8.7-10.3) mg/dL - Imaging Additional studies: CTA of the head and neck reviewed Assessment and Plan Assessment: #1 symptomatic left internal carotid artery stenosis greater than 90% #2 amaurosis fugax of the left eye #3 coronary artery disease history of stenting #4 hypertension #5 diabetes #6 recent Covid 19 #7 history of tobacco abuse #8 mild thrombocytopenia Plan: reviewed CTA of the neck which demonstrates greater than 90% stenosis of the left ICA. There is calcification noted at this lesion and would recommend carotid endarterectomy and patch angioplasty as treatment. I do not feel a stent would be beneficial due to the calcification as well as his age. Due to the fact that he is symptomatic with amaurosis fugax intervention should be performed within the next week or 2. We will discuss this further with his co founder & ceo who has been monitoring his carotid disease as well as the neurologist for timing. He is to continue his aspirin, Plavix and statin. Corbin mcginnis you for allowing me to participate in your patient's care.
[2020-07-27 07:38] LABS: Glucose,Whole Blood 133 mg/dL (75-99)
--- NOTE | 2020-07-27 09:00 | ECHOF ---
Referral Reason:Stroke MEASUREMENTS -------- HEIGHT: 165.1 cm WEIGHT: 104.3 kg BP: 158/92 RVIDd: 2.4 cm (< 3.3) IVSd: 1.1 cm (0.6 - 1.1) LVIDd: 3.8 cm (3.9 - 5.3) LVPWd: 1.1 cm (0.6 - 1.1) IVSs: 1.5 cm LVIDs: 2.9 cm LVPWs: 1.8 cm Ao Diam: 3.0 cm (2.0 - 3.7) AV Cusp: 1.9 cm (1.5 - 2.6) LA Diam: 3.4 cm (2.7 - 3.8) MV EXCURSION: 17.354 mm (> 18.000) MV EF SLOPE: 46 mm/s (70 - 150) EPSS: 0.8 cm MV E Lorenzo: 0.94 m/s MV DecT: 166 ms MV A Lorenzo: 0.44 m/s MV E/A Ratio: 2.13 RAP: 5.00 mmHg RVSP: 8.40 mmHg FINDINGS -------- This was a technically difficult study with suboptimal views. The left ventricular size is normal. Left ventricular wall thickness is normal. Overall left vent ricular systolic function is normal with, an EF between 55 - 60 %. The right ventricle is normal in size. The left atrial size is normal. The right atrial size is normal. Lumason used Aortic valve is trileaflet and is mildly thickened. The mitral valve is normal. Mild mitral regurgitation is present. The tricuspid valve appears structurally normal. Trace tricuspid regurgitation present. Right fina tricular systolic pressure is normal at < 35 mmHg. There is no pulmonic regurgitation present. The aortic root size is normal. Normal inferior vena cava with normal inspiratory collapse consistent with estimated right atrial pre ssure of 5 mmHg. There is no pericardial effusion. CONCLUSIONS -------- 1. The left ventricular size is normal. 2. Left ventricular wall thickness is normal. 3. Overall left ventricular systolic function is normal with, an EF between 55 - 60 %. 4. Aortic valve is trileaflet and is mildly thickened. 5. Mild mitral regurgitation is present. 6. Trace tricuspid regurgitation present. 7. There is no pericardial effusion. LOCK TENDER: Laura Wright [facility]
[2020-07-27] MEDS: ATORVASTATIN 80 MG TAB PO SCH (09:01)
[2020-07-27] MEDS: metFORMIN 500 MG TAB PO SCH ×2 (09:01→20:12)
[2020-07-27] MEDS: ASPIRIN 81 MG PO SCH (09:01)
[2020-07-27] MEDS: HEPARIN SODIUM,PORCINE/PF 5,000 UNIT/0.5 ML SYRINGE SQ SCH ×2 (09:01→20:15)
[2020-07-27] MEDS: lisinopriL 10 MG TAB PO SCH ×2 (09:01→20:12)
[2020-07-27] MEDS: Dapagliflozin Propanediol [Farxiga] PO SCH (09:02)
[2020-07-27] MEDS: CHOLECALCIFEROL 25 MCG (1000 IU) TABLET PO SCH (09:02)
[2020-07-27] MEDS: LINAGLIPTIN 5 MG TABLET PO SCH (09:02)
[2020-07-27] MEDS: PREGABALIN 100 MG CAP PO SCH ×3 (09:02→20:12)
[2020-07-27] MEDS: PANTOPRAZOLE 40 MG TABLET PO SCH (09:02)
[2020-07-27] MEDS: METOPROLOL TARTRATE 25 MG TAB PO SCH ×2 (09:02→20:12)
[2020-07-27] MEDS: amLODIPine 5 MG TAB PO SCH (09:02)
[2020-07-27] MEDS: TICAGRELOR 90 MG TAB PO SCH (09:03)
[2020-07-27 11:52] LABS: Glucose,Whole Blood 177 mg/dL (75-99)
--- NOTE | 2020-07-27 12:24 | P.PN ---
Subjective Progress Note Date: 07/27/20 Principal diagnosis: TIA Patient seen and examined. He is doing well and has no complaints of lateralizing symptoms such as weakness, vision changes or speech issues. He states his vision issues have completely resolved. He denies any fevers, chills, chest pain or shortness of breath. He states he was told he should wait another day in the hospital to continue to be monitored. Objective - Vital Signs Vital signs: Vital Signs Temp 98 F 07/27/20 07:00 Pulse 72 07/27/20 08:00 Resp 16 07/27/20 08:00 BP 177/82 07/27/20 07:00 Pulse Ox 97 07/27/20 07:00 Intake & Output 07/26/20 07/27/20 07/27/20 18:59 06:59 18:59 Intake Total 237 250 Balance 237 250 Intake: Oral 237 250 Other: Voiding Method Toilet Toilet # Voids 4 2 2 # Bowel Movements 1 1 - Constitutional General appearance: Present: average body habitus, cooperative - EENT Eyes: Present: PERRLA - Respiratory Respiratory: bilateral: CTA - Cardiovascular Rhythm: regular - Gastrointestinal General gastrointestinal: Absent: distended - Neurologic Neurologic: Present: CNII-XII intact. Absent: focal deficits - Musculoskeletal Musculoskeletal: Present: gait normal, strength equal bilaterally - Psychiatric Psychiatric: Present: A&O x's 3, appropriate affect, intact judgment & insight - Labs CBC & Chem 7: 07/26/20 06:04 07/26/20 06:04 Labs: Abnormal Lab Results - Last 24 Hours (Table) 07/26/20 07/26/20 07/26/20 Range/Units 11:41 11:41 21:08 ESR 22 H (0-15) mm/hr POC Glucose (mg/dL) 108 H (75-99) mg/dL C-Reactive Protein 1.1 H (<1.0) mg/dL 07/27/20 07/27/20 Range/Units 07:37 11:51 ESR (0-15) mm/hr POC Glucose (mg/dL) 133 H 177 H (75-99) mg/dL C-Reactive Protein (<1.0) mg/dL Assessment and Plan Assessment: #1 symptomatic left internal carotid artery stenosis greater than 90% #2 amaurosis fugax of the left eye #3 coronary artery disease history of stenting #4 hypertension #5 diabetes #6 recent Covid 19 #7 history of tobacco abuse #8 mild thrombocytopenia Plan: Long discussion was had with the patient about his left internal carotid artery stenosis which is greater than 90% seen on CT angiogram and correlates with his carotid Doppler. Recommend left carotid endarterectomy and patch angioplasty this week. We will schedule him for Tuesday. He will need clearance from a medical standpoint which we will discuss with Dr. Al.
--- NOTE | 2020-07-27 13:28 | PN ---
PROGRESS NOTE DATE OF SERVICE: 07/27/2020 This 61-year-old gentleman admitted with a facial weakness on the left side. Left eye was found to have right occipital stroke. The patient also had bilateral carotid artery stenosis, left more than the right. The patient is also being followed by Dr. Gomez in the outpatient setting. Dr. Morel is following the patient closely as well as Neurology. No chest pain. No palpitations. No fever. PHYSICAL EXAMINATION: Alert and oriented times three. Pulse 72, blood pressure 177/82, respirations 16, temp 98 degrees, pulse ox 97% on room air. HEENT: Conjunctivae normal. NECK: No JVD. CARDIOVASCULAR: S1, S2 muffled. RESPIRATORY SYSTEM: Breath sounds diminished at the bases. No rhonchi. No crackles. ABDOMEN: Soft, nontender. NERVOUS SYSTEM: No focal deficits. LABS: C-reactive protein is 1.1. WBC 4.1. ASSESSMENT: 1. Acute stroke involving the right cortical infarct in the right occipital lobe causing left homonymous hemianopsia. 2. Mild thrombocytopenia. 3. Bilateral carotid artery stenosis left more than the right. 4. Diabetes mellitus type 2. Newly diagnosed. 5. History of recent Covid 19 and still currently Covid 19 positive. 6. Hypertension. 7. History of degenerative joint disease. 8. History of ganglion removal. 9. Remote history of nicotine dependence. 10.Obesity with body mass index of 38.6. 11.FULL CODE. RECOMMENDATIONS AND DISCUSSION: Recommend to continue current management. Continue antiplatelet agents. Continue Lipitor. Closely follow with multiple consultants. Prognosis guarded. The patient does not have any active Covid 19 at this time. Further recommendations to follow. MMODL / IJN: [id number] /
--- NOTE | 2020-07-27 15:55 | P.PN ---
Subjective Progress Note Date: 07/27/20 Patient was seen at bedside and he denies any further vision loss or visual disturbance. He feels neurologically he is at baseline and denies any weakness or numbness or difficulty getting his words out. Upon getting the history from him again he said he could not see out of the lateral left eye only but denies any issues with the right eye then it resolved. Denies any associated symptoms. MR the brain is reported as evidence of small acute cortical infarct in the right occipital. There are a few scattered white matter high signal foci probably due to chronic small vessel ischemia. Objective - Vital Signs Vital signs: Vital Signs Temp 98 F 07/27/20 07:00 Pulse 72 07/27/20 12:27 Resp 16 07/27/20 12:27 BP 177/82 07/27/20 07:00 Pulse Ox 97 07/27/20 07:00 Intake & Output 07/26/20 07/27/20 07/27/20 18:59 06:59 18:59 Intake Total 237 250 Balance 237 250 Intake: Oral 237 250 Other: Voiding Method Toilet Toilet # Voids 4 2 2 # Bowel Movements 1 1 - Exam GENERAL: The patient is lying in bed and is not in acute distress. CHEST: Positive left carotid bruit. NEUROLOGICAL: Higher mental function: The patient is awake, alert, oriented to self, place and time. Patient is following commands. No aphasia and no neglect. Cranial nerves: The pupils are round, equal and reactive to light and accommodation. Visual merida are full to confrontation throughout (was tested twice and is full). Extraocular movement is intact no nystagmus is noted. Facial sensation is normal to touch throughout. The facial strength is normal throughout. Hearing is normal bilaterally to hand rub. Tongue is midline and moved [id number] without any difficulty. No dysarthria is noted. Shoulder shrug is normal bilaterally. Motor: Gait is normal with normal arm swings. The strength is 5 over 5 throughout. Normal tone and bulk. Cerebellum: Normal finger to nose heel to chin bilaterally. Sensation: Sensation is normal to touch throughout. Reflexes (right/left): 2+ throughout. Plantars are downgoing bilaterally. - Labs CBC & Chem 7: 07/26/20 06:04 07/26/20 06:04 Labs: Abnormal Lab Results - Last 24 Hours (Table) 07/26/20 07/27/20 07/27/20 Range/Units 21:08 07:37 11:51 POC Glucose (mg/dL) 108 H 133 H 177 H (75-99) mg/dL Assessment and Plan Assessment: * Acute right occipital ischemic stroke (presented with transient left lateral vision loss and I assume at that time he had left homonymous hemianopsia). Seems embolic. No sure if artery to artery or cardioembolic. Possibly the r ight carotid plaque embolized to the brain. Currently has normal visual merida (are full to confrontation). * Significant left internal carotid artery stenosis (90% per CTA of neck while on carotid duplex is 50-70% stenosis) * Mild right ICA stenosis (Per CTA and duplex) * Hypertension * Positive COVID 19 Pneumnia (05/16/2020 was initially tested positive) * Hyperlipidemia * History of Coronary artery disease s/p stent Plan: * CT of the head is reported as no acute intracranial hemorrhage or midline shift. There is a mild to moderate diffuse age-related cerebral atrophy and mild chronic small vessel ischemic changes noted. * CT angiography was reported as left ICA stenosis estimated at 90% while the right ICA diameter reduction at 50%. Otherwise nondiagnostic evaluation of the [place]. * MR the brain is reported as evidence of small acute cortical infarct in the right occipital. There are a few scattered white matter high signal foci probably due to chronic small vessel ischemia. * Lipid panel: Triglyceride 116, cholesterol 135, LDL 72 and HDL of 39. And stroke/TIA the LDL goal is less than 70. * Carotid duplex is reported as there is antegrade flow in the vertebral arteries. The images and measurements suggest 50-70% stenosis in the left internal carotid artery and close to 50% stenosis in the right internal carotid artery. * ESR is 22 which is just slightly elevated but not too impressive in my opinion. CRP is 1.1 again is just slightly elevated to normal was less than 1.0. * 2-D echo was reported as left ventricular wall thickness is normal. Ejection fraction of 55-60%. Left the atrial size is normal. * Currently the patient is on aspirin 81 mg and Brilinta 90 mg daily (he was on home ASA 81mg and Plavix 75mg daily. Brilinta is started by vascular surgery team). Recommend Brilinta 90mg 1 tab bid (I believe he was placed on lower dose since had mild thrombocytopenia). Continue Lipitor 80 mg daily. * Consulted cardiology for NEHA. * PT, OT and [employer] CHILLER TECHNICIAN are consulted. * Continue every 4 hours neuro checks * Is on continous cardiac monitoring. * Recommend event monitor or even loop recorder prior to discharge. * Vascular surgery team is consulted and they are planing of left carotid surgical intervention this . * We'll defer the rest of medical management to the primary team. Dr. Walton will take over Neurology coverage tomorrow AM. The plan is discussed with the patient. Florentino Gamez MD Neuro-Hospitalist Time with Patient: Less than 30
[2020-07-27 17:38] LABS: Glucose,Whole Blood 147 mg/dL (75-99)
[2020-07-27 20:02] LABS: Glucose,Whole Blood 123 mg/dL (75-99)
[2020-07-28 07:19] LABS: Glucose,Whole Blood 121 mg/dL (75-99)
[2020-07-28] MEDS: SODIUM CHLORIDE 0.9% 1,000 ML IV SCH ×3 (08:40→08:49)
[2020-07-28] MEDS: HEPARIN SODIUM,PORCINE/PF 5,000 UNIT/0.5 ML SYRINGE SQ SCH ×2 (08:46→20:05)
[2020-07-28] MEDS: PREGABALIN 100 MG CAP PO SCH ×3 (08:47→20:05)
[2020-07-28] MEDS: CHOLECALCIFEROL 25 MCG (1000 IU) TABLET PO SCH (08:47)
[2020-07-28] MEDS: METOPROLOL TARTRATE 25 MG TAB PO SCH ×2 (08:47→20:05)
[2020-07-28] MEDS: ATORVASTATIN 80 MG TAB PO SCH (08:47)
[2020-07-28] MEDS: lisinopriL 10 MG TAB PO SCH ×2 (08:47→20:05)
[2020-07-28] MEDS: amLODIPine 5 MG TAB PO SCH (08:47)
[2020-07-28] MEDS: ASPIRIN 81 MG PO SCH (08:47)
[2020-07-28] MEDS: PANTOPRAZOLE 40 MG TABLET PO SCH (08:48)
[2020-07-28] MEDS: CLOPIDOGREL 75 MG TAB PO SCH (08:48)
[2020-07-28] MEDS: Dapagliflozin Propanediol [Farxiga] PO SCH (08:50)
--- NOTE | 2020-07-28 10:06 | CONS ---
CONSULTATION HISTORY OF PRESENT ILLNESS: Des Eid is a 64-year-old gentleman who has been admitted to the hospital with what appears to be an amaurosis fugax type picture. He lost vision on his left eye very transiently and there is also on MRI an occipital infarct. It is unclear if the infarct is a related to a carotid stenosis which is significant with some calcification or if he has had any embolic phenomena. I was asked to see him for a possible transesophageal echo and a loop recorder. The patient at the time of my evaluation is resting comfortably. He does have coronary artery disease and he sees Dr. Gomez in the outpatient setting. As recently as March of 2019, he presented to the hospital with chest pain and underwent a cardiac catheterization by Dr. Gomez who performed stenting of the obtuse marginal branch of circumflex with a 2.25 caliber Xience stent. The patient has been on aspirin and Plavix since then. He has no chest pain. He is reasonably comfortable. EKG on this hospitalization revealed sinus mechanism with right ventricular conduction delay. The troponin profile is completely normal. Neurological evaluation suggests the possibility of an occipital stroke. I cannot exclude embolic phenomena. There is also carotid stenosis. Dr. Morel is planning on doing surgery for him. I have seen a change in his antiplatelet therapy from Plavix to Brilinta 90 mg daily, which I believe is not necessary at this time. I have also noted that there is a request for transesophageal echo as well on this patient. On questioning, he is asymptomatic, resting comfortably. His vision seems to have improved quite a bit. He is almost normal at this time. PAST MEDICAL HISTORY: 1. CAD with prior stenting. 2. Hypertension. 3. Hyperlipidemia. 4. Type 2 diabetes mellitus on oral agents. PHYSICAL EXAMINATION: On examination, blood pressure is 144/70, pulse rate is 60 per minute, regular. HEENT unremarkable. Fundus was not examined by me. Neck is supple. There is no JVD. I do not hear any significant carotid bruit. HEART examination reveals S1, S2 heard normally. I do not hear any significant rub, murmur, or gallop. LUNGS revealed bilateral decent air entry. ABDOMEN is soft, nontender. Lower EXTREMITIES reveal normal pulses. No edema. CENTRAL NERVOUS SYSTEM is normal. IMPRESSION: 1. Episode of amaurosis fugax with occipital stroke, unclear etiology. 2. Left carotid stenosis of 90% may be a culprit lesion. 3. Coronary artery disease, stable with prior stenting more than 1 year ago of circumflex marginal. 4. Hypertension. 5. Type 2 diabetes mellitus. RECOMMENDATIONS: I am recommending that we will leave him on aspirin and Plavix combination. I will perform a loop recorder today. A transesophageal echo tomorrow will be performed by Dr. Gomez. I will request him. I spoke to Dr. Morel. His surgery will be performed after tomorrow once the transesophageal echo is performed. Discussed my thoughts in detail with the patient. We will keep him n.p.o. after midnight today, perform a loop recorder. Explained to him the rationale, risks, benefits, options. He understands all details and wishes to proceed with the procedure. Thank you very much for the consult. NOAH / SASHA: [id number] /
[2020-07-28] MEDS ORDERED: IV FLUID CONTINUATION 900 ML IV ONE (10:35)
[2020-07-28] MEDS ORDERED: MIDAZOLAM 2 MG/2 ML VIAL IV ONE (10:50)
[2020-07-28] MEDS ORDERED: LIDOCAINE 1% INJ 10MG/ML (20 ML MDV) SQ ONE (10:54)
--- NOTE | 2020-07-28 11:35 | CE ---
CARDIAC ELECTROPHYSIOLOGY REPORT LOOP RECORDER PROCEDURE NOTE: DATE OF SERVICE: 07/28/2020. PROCEDURE PERFORMED: Loop recorder insertion. INDICATION: Cryptogenic stroke. Patient presented with what seems to be an occipital stroke, has a carotid lesion, but the clinical picture suggests embolic stroke. He was advised loop recorder by Dr. Gamez from Neurology. This patient also has CAD, hypertension, hyperlipidemia, and type 2 diabetes mellitus. He has had previous PCI. PROCEDURE NOTE: The patient was brought in for the procedure. He was scrubbed and draped in the usual manner. Intravenous antibiotic was administered. Using the tool provided, a stab incision was made in the left 4th intercostal space. The loop recorder was then inserted as per protocol into the left 4th intercostal space in the lateral direction. There was a good signal noted. Signal was about 0.7 mV amplitude. A single suture was used to close the stab incision. The patient tolerated the procedure well. Results were discussed with him. No family was available. Successful loop recorder insertion. Loop recorder internal consultant [employer] Reveal LINQ model LNQ11, serial number [id number]. The patient tolerated procedure well without complication. MMODL / IJN: [id number] /
[2020-07-28 12:11] LABS: Glucose,Whole Blood 124 mg/dL (75-99)
[2020-07-28] MEDS: metFORMIN 500 MG TAB PO SCH ×2 (13:31→20:05)
[2020-07-28] MEDS: LINAGLIPTIN 5 MG TABLET PO SCH (13:31)
--- NOTE | 2020-07-28 16:55 | P.PN ---
Subjective Progress Note Date: 07/28/20 Principal diagnosis: TIA Patient seen and examined. He is doing well and has no complaints of lateralizing symptoms such as weakness, vision changes or speech issues. He states his vision issues have completely resolved. He denies any fevers, chills, chest pain or shortness of breath. He underwent loop recorder placement today and will undergo NEHA tomorrow. Objective - Vital Signs Vital signs: Vital Signs Temp 97.9 F 07/28/20 14:59 Pulse 53 L 07/28/20 14:59 Resp 16 07/28/20 14:59 BP 144/75 07/28/20 14:59 Pulse Ox 98 07/28/20 14:59 Intake & Output 07/27/20 07/28/20 07/28/20 18:59 06:59 18:59 Intake Total 250 150 Balance 250 150 Intake: IV 150 Oral 250 Other: Voiding Method Toilet Toilet Toilet # Voids 2 1 3 # Bowel Movements 1 - Exam No acute distress, alert and oriented 3 Pupils equal round reactive to light, extraocular muscles intact Regular rate Lungs are clear, no retractions No focal deficits, muscle strength is equal bilaterally Good capillary refill, palpable DP pulses bilaterally - Labs CBC & Chem 7: 07/26/20 06:04 07/26/20 06:04 Labs: Abnormal Lab Results - Last 24 Hours (Table) 07/27/20 07/27/20 07/28/20 Range/Units 17:37 20:00 07:17 POC Glucose (mg/dL) 147 H 123 H 121 H (75-99) mg/dL 07/28/20 Range/Units 12:10 POC Glucose (mg/dL) 124 H (75-99) mg/dL Assessment and Plan Assessment: #1 symptomatic left internal carotid artery stenosis greater than 90% #2 amaurosis fugax of the left eye #3 coronary artery disease history of stenting #4 hypertension #5 diabetes #6 recent Covid 19 #7 history of tobacco abuse #8 mild thrombocytopenia Plan: After discussion with cardiology and neurology it was determined to postpone carotid endarterectomy in order to obtain a NEHA. I discussed this with the renetta woody and we will therefore cancel his surgery for tomorrow and after discussion with neurology he is okay for discharge on aspirin and Plavix and will follow-up in the office next week. At that time we will schedule him for left carotid endarterectomy and patch angioplasty the following week. He is agreeable to the plan and will be discharged home tomorrow if okay with internal medicine after his NEHA.
[2020-07-28 17:27] LABS: Glucose,Whole Blood 134 mg/dL (75-99)
--- NOTE | 2020-07-28 19:33 | PN ---
PROGRESS NOTE DATE OF SERVICE: 07/28/2020 INTERVAL HISTORY: This is a 64-year-old gentleman admitted with acute stroke involving the right cortical infarct in the occipital area is being closely monitored at this time. The patient had a loop recorder insertion by Dr. Sebas Buchanan. The patient is also being planned to have a NEHA also. Neurology following the patient closely. No chest pain. No palpitations. No fever. Multiple consultants following the patient including Neurology and as well as Vascular Surgery, Cardiology. PHYSICAL EXAMINATION: GENERAL: Patient is alert and oriented times three. VITAL SIGNS: Pulse 53, blood pressure 145/70, respirations 16, temperature 97.9, pulse ox 98% on room air. HEENT: Conjunctivae normal. NECK: No jugular venous distention. No carotid bruits. RESPIRATORY: Breath sounds diminished at the bases. A few scattered rhonchi. HEART: S1 and S2, muffled. ABDOMEN: Soft, no tenderness. LABS: WBC 4.3, hemoglobin 12.5. Glucose noted. ASSESSMENT: 1. Acute stroke involving the right cortical infarct in the right occipital causing left homonymous hemianopsia. 2. Mild thrombocytopenia. 3. Bilateral carotid artery stenosis, left more than the right. 4. Diabetes mellitus type 2, newly diagnosed. 5. History of recent COVID-19 still currently COVID-19 positive. 6. Hypertension. 7. History of degenerative joint disease. 8. History of ganglion removal. 9. Remote history of nicotine dependence. 10.Obesity with body mass index of 38.6. 11.FULL CODE. RECOMMENDATIONS AND DISCUSSION: I recommend to continue current management and continue symptomatic treatment. Otherwise, NEHA and loop recording by Cardiology. surgery for left carotid stenosis by Dr. Morel. Prognosis guarded because of multiple complex medical issues. Repeat labs tomorrow. The COVID-19 seems to be inactive at this time because the inflammatory markers are not highly elevated. Overall prognosis extremely guarded because of multiple complex medical issues as mentioned earlier in the setting of recent COVID-19 infection. MMODL / IJN: [id number] / [facility]
[2020-07-28 20:50] LABS: Glucose,Whole Blood 133 mg/dL (75-99)
[2020-07-28 21:09] VITALS: RESP 18
--- NOTE | 2020-07-28 22:38 | P.PN ---
Subjective Progress Note Date: 07/28/20 Patient was seen for a follow-up. Patient was initially seen by Dr. Florentino Gamez. Please refer to his note for details. Patient came with left visual field deficit, perhaps amaurosis fugax versus homonymous type visual deficit involving the left side. Symptoms resolved in 2 hours. At present patient has no symptoms. Patient is status post loop recorder insertion. MRI of the brain revealed evidence of small acute infarct right occipital lobe. Carotid Doppler showed antegrade full in the both vertebral arteries. Images in measurements suggest 50-70% stenosis in the left ICA and close to 50% stenosis in the right ICA. CTA of the neck showed left ICA stenosis about 90% and right ICA diameter r eduction at 50%. CTA of the head showed nondiagnostic evaluation of the [place] due to technical difficulties. 2-D echo revealed normal left-ventricular size. Normal left-ventricular wall thickness. EF is 55-60%. Aortic valve is trileaflet and mildly thickened. Mild MR. Trace TR. No pericardial effusion. Hemoglobin A1c 12.6 on 02/25/2018. Need to repeat. Lipid panel with cholesterol 135, LDL 72, HDL 39 and triglycerides 116. Objective - Vital Signs Vital signs: Vital Signs Temp 97.9 F 07/28/20 14:59 Pulse 53 L 07/28/20 14:59 Resp 16 07/28/20 14:59 BP 144/75 07/28/20 14:59 Pulse Ox 98 07/28/20 14:59 Intake & Output 07/27/20 07/28/20 07/28/20 18:59 06:59 18:59 Intake Total 250 150 Balance 250 150 Intake: IV 150 Oral 250 Other: Voiding Method Toilet Toilet Toilet # Voids 2 1 3 # Bowel Movements 1 - Exam Patient is a late middle aged male, in no distress. Patient is alert awake oriented to time place and person. Speech and language functions are normal. Attention, concentration and fund of knowledge is adequate. On cranial examination, pupils are round and reacting to light, visual merida are full on confrontation, extraocular muscles are intact with no nystagmus. Face is symmetric, tongue protrudes to the midline. Palatal elevation and sensation normal, hearing and shoulder shrug normal, facial sensation normal. Shoulder shrug normal. On muscle strength testing, there is no pronator drift and the strength is normal in arms and legs distally and proximally. Deep tendon reflexes are 2+ throughout. Sensory to touch is equal with no neglect. Cerebellar function showed no ataxia for [id number] testing. No dysdiadochokinesia. Tone and bulk of muscles normal. Gait deferred. On general examination, patient has left carotid bruit, S1-S2 audible. Abdomen is soft nontender. Chest is clear. Peripheral pulses are present. - Labs CBC & Chem 7: 07/26/20 06:04 07/26/20 06:04 Labs: Abnormal Lab Results - Last 24 Hours (Table) 07/27/20 07/28/20 07/28/20 Range/Units 20:00 07:17 12:10 POC Glucose (mg/dL) 123 H 121 H 124 H (75-99) mg/dL 07/28/20 Range/Units 17:26 POC Glucose (mg/dL) 134 H (75-99) mg/dL Assessment and Plan Assessment: * Acute right occipital ischemic stroke presenting with probable homonymous left visual field deficit. Seems embolic. No sure if artery to artery or cardioembolic. Possibly the right carotid plaque embolized to the brain. Currently has normal visual merida (are full to confrontation). * Significant left internal carotid artery stenosis (90% per CTA of neck while on carotid duplex is 50-70% stenosis) * Mild right ICA stenosis (Per CTA and duplex) * Hypertension * Diabetes poorly controlled. * Positive COVID 19 Pneumnia (05/16/2020 was initially tested positive) * Hyperlipidemia * History of Coronary artery disease s/p stent Plan: * CT angiography was reported as left ICA stenosis estimated at 90% while the right ICA diameter reduction at 50%. Otherwise nondiagnostic evaluation of the [place]. * MR the brain is reported as evidence of small acute cortical infarct in the right occipital. There are a few scattered white matter high signal foci probably due to chronic small vessel ischemia. * Lipid panel: Triglyceride 116, cholesterol 135, LDL 72 and HDL of 39. And stroke/TIA the LDL goal is less than 70. * Carotid duplex is reported as there is antegrade flow in the vertebral arteries. The images and measurements suggest 50-70% stenosis in the left internal carotid artery and close to 50% stenosis in the right internal car otid artery. * ESR is 22 which is just slightly elevated but not too impressive in my opinion. CRP is 1.1 again is just slightly elevated to normal was less than 1.0. * 2-D echo was reported as left ventricular wall thickness is normal. Ejection fraction of 55-60%. Left the atrial size is normal. * Hemoglobin A1c. * Patient currently on aspirin 81 mg and Plavix 75 mg daily. * Continue Lipitor 80 mg daily. * Patient undergoing NEHA in the morning. * Patient had undergone placement of loop recorder today. * Vascular surgery team is consulted and they are planing of left carotid surgical intervention within 2 weeks as an outpatient.
[2020-07-29] MEDS ORDERED: MELATONIN 5 MG TABLET PO SCH (02:00)
[2020-07-29 05:41] LABS: Hemoglobin A1C 4.8 % (4.0-6.0)
[2020-07-29] MEDS: SODIUM CHLORIDE 0.9% 1,000 ML IV SCH (05:52)
[2020-07-29] MEDS: Dapagliflozin Propanediol [Farxiga] PO SCH (07:04)
[2020-07-29 07:35] LABS: Glucose,Whole Blood 109 mg/dL (75-99)
[2020-07-29] MEDS: CHOLECALCIFEROL 25 MCG (1000 IU) TABLET PO SCH (07:38)
[2020-07-29] MEDS: CLOPIDOGREL 75 MG TAB PO SCH (07:39)
[2020-07-29] MEDS: lisinopriL 10 MG TAB PO SCH (07:39)
[2020-07-29] MEDS: amLODIPine 5 MG TAB PO SCH (07:39)
[2020-07-29] MEDS: ATORVASTATIN 80 MG TAB PO SCH (07:39)
[2020-07-29] MEDS: PREGABALIN 100 MG CAP PO SCH (07:39)
[2020-07-29] MEDS: PANTOPRAZOLE 40 MG TABLET PO SCH (07:39)
[2020-07-29] MEDS: ASPIRIN 81 MG PO SCH (07:39)
[2020-07-29] MEDS: HEPARIN SODIUM,PORCINE/PF 5,000 UNIT/0.5 ML SYRINGE SQ SCH (07:39)
[2020-07-29 07:55] VITALS: TEMP 98
[2020-07-29 10:19] LABS: Basophils # (A) 0.02 X 10*3/uL (0.00-0.10); Basophils % (A) 0.5 %; Eosinophils # (A) 0.21 X 10*3/uL (0.04-0.35); Eosinophils % (A) 4.7 %; HCT 39.7 % (39.6-50.0); HGB 13.1 g/dL (13.0-17.0); Lymphocytes # (A) 0.81 X 10*3/uL (0.90-5.00); Lymphocytes % (A) 18.2 %; MCV 91.1 fL (80.0-97.0); Mean Platelet Volume 11.3 fL (9.5-12.2); Monocytes # (A) 0.61 X 10*3/uL (0.20-1.00); Monocytes % (A) 13.7 %; Neutrophils # (A) 2.77 X 10*3/uL (1.80-7.70); Neutrophils % (A) 62.4 %; Platelet Count 152 X 10*3/uL (140-440); RBC 4.36 X 10*6/uL (4.40-5.60); RDW 14.6 % (11.5-14.5); WBC 4.44 X 10*3/uL (4.50-10.00)
[2020-07-29 10:42] LABS: BUN/Creat Ratio 21.11 Ratio (12.00-20.00); Calcium 9.3 mg/dL (8.7-10.3); Non-African American GFR(CKD) 90.6 (60.0-200.0); Potassium 4.1 mmol/L (3.5-5.5)
[2020-07-29] MEDS: METOPROLOL TARTRATE 25 MG TAB PO SCH (10:42)
[2020-07-29 11:41] LABS: Glucose,Whole Blood 139 mg/dL (75-99)
[2020-07-29] MEDS ORDERED: IV FLUID CONTINUATION 900 ML IV ONE (12:15)
[2020-07-29] MEDS: BENZOCAINE SPRAY 1 CAN TOPICAL ONE ×2 (12:20→13:00)
[2020-07-29] MEDS ORDERED: MIDAZOLAM 2 MG/2 ML VIAL IV ONE (13:00)
[2020-07-29] MEDS ORDERED: fentaNYL (PF) 50 MCG/ML 2 ML AMP IV ONE (13:01)
[2020-07-29 13:27] VITALS: BP 132/76; PULSE 53
--- NOTE | 2020-07-29 13:27 | ECHOT ---
TRANSESOPHAGEAL ECHOCARDIOGRAM PROCEDURE PERFORMED: Transesophageal echocardiogram. INDICATION: Stroke. COMPLICATION: None. LEVEL OF SEDATION: Moderate with sedation length of 10 minutes. PROCEDURE DESCRIPTION: After obtaining an informed consent, explaining the procedure, benefits, risks, complications and alternatives, the patient was brought to the transesophageal echocardiogram suite. A pulse oximetry and heart rate monitors were attached to the patient prior to the procedure. The patient's throat was sprayed using lidocaine locally. Following that, the patient was turned into left lateral position. A bite guard was placed and the patient was then sedated with the above doses of Versed and fentanyl in divided doses. Following that, the transesophageal echocardiogram probe was advanced through the bite guard into the mid esophagus where 2-D echocardiogram images as well as color Doppler images of various cardiac structures were obtained. We evaluated the interatrial septum using 2-D echocardiogram, color Doppler, and contrast study. The procedure was completed. There were no complications. Please note that the echo was done using the 2D echo as well as color and Doppler and pulse with Dopplers. FINDINGS: The left ventricular dimension and systolic function appeared to be normal. The ejection fraction appeared to be in the range of 50% to 55%. Right ventricle appeared to be of normal size and function. The left atrium appeared to be mildly dilated. Left atrial appendage appeared to be free from any thrombus. The interatrial septum appeared to be intact. The aortic valve is trileaflet valve without stenosis with mild regurgitation. The mitral valve seems to be thickened with moderate MR. There was moderate tricuspid regurgitation seen. CONCLUSION: 1. No evidence of cardiac source of embolization. 2. Intact interatrial septum without any shunt. 3. Normal left atrial appendage without thrombus. 4. Normal left ventricular dimension and systolic function. 5. Normal right ventricular dimension and systolic function. 6. Aortic sclerosis without stenosis with mild insufficiency. 7. Thickened mitral valve leaflets with moderate MR. 8. Moderate tricuspid regurgitation. 9. Mild atherosclerotic plaque in the descending aorta. MMODL / IJN: [id number] /
--- NOTE | 2020-07-29 13:35 | P.PN ---
Subjective Progress Note Date: 07/29/20 Principal diagnosis: TIA Patient was seen and examined sitting up in a chair. He denies any focal deficits. He is scheduled for a NEHA this afternoon, followed by discharge home. He states overall he is doing well no complaints of shortness disturbances, upper and lower extremity weakness, redness breath or chest pain. He is to follow-up in the outpatient setting with Dr. Morel. Objective - Vital Signs Vital signs: Vital Signs Temp 98.0 F 07/29/20 07:00 Pulse 61 07/29/20 08:00 Resp 18 07/29/20 08:00 BP 133/67 07/29/20 07:00 Pulse Ox 96 07/29/20 07:00 Intake & Output 07/28/20 07/29/20 07/29/20 18:59 06:59 18:59 Intake Total 150 Balance 150 Intake: IV 150 Other: Voiding Method Toilet Toilet Toilet # Voids 3 3 - Exam General appearance: The patient is alert, oriented, in no acute distress. HET: Head is normocephalic and atraumatic. Pupils are equal and reactive. EOM intact. Neck: Supple without lymphadenopathy. Trachea midline. Heart: S1 S2. Regular rate and rhythm. Lungs: Clear to auscultation. Extremities: Normal skin color and turgor. No cyanosis, rash, ulceration, clubbing, or edema. good capillary refill. Palpable radial and DP pulses bilaterally. Neurological: No focal deficits. Strength and sensation are grossly intact. - Labs CBC & Chem 7: 07/29/20 06:03 07/29/20 06:03 Labs: Abnormal Lab Results - Last 24 Hours (Table) 07/28/20 07/28/20 07/28/20 Range/Units 12:10 17:26 20:49 WBC (4.50-10.00) X 10*3/uL RBC (4.40-5.60) X 10*6/uL RDW (11.5-14.5) % Lymphocytes # (0.90-5.00) X 10*3/uL BUN/Creatinine Ratio (12.00-20.00) Ratio Glucose (70-110) mg/dL POC Glucose (mg/dL) 124 H 134 H 133 H (75-99) mg/dL 07/29/20 07/29/20 07/29/20 Range/Units 06:03 06:03 07:33 WBC 4.44 L (4.50-10.00) X 10*3/uL RBC 4.36 L (4.40-5.60) X 10*6/uL RDW 14.6 H (11.5-14.5) % Lymphocytes # 0.81 L (0.90-5.00) X 10*3/uL BUN/Creatinine Ratio 21.11 H (12.00-20.00) Ratio Glucose 124 H (70-110) mg/dL POC Glucose (mg/dL) 109 H (75-99) mg/dL Assessment and Plan Assessment: 1. Symptomatic left internal carotid artery stenosis greater than 90% 2. Amaurosis fugax of the left eye 3. Coronary artery disease history of stent 4. Hypertension 5. Diabetes 6. Recent Covid19 infection 7. History of tobacco abuse 8. Mild thrombocytopenia Plan: Patient to undergo NEHA today. He is to follow-up with Dr. Morel next week to schedule outpatient left carotid endarterectomy with patch angioplasty. Continue aspirin and Plavix. Patient may be discharged home from a vascular surgical standpoint when otherwise medically stable. Thank you for this consultation, we will sign off at this time The impression and plan of care has been dictated as directed. I performed a history and examination of this patient, discussed the same with the dictator. I agree with the dictator's note ,documented as a scribe. Any additional findings or plans will be noted.
[2020-07-29] MEDS: LINAGLIPTIN 5 MG TABLET PO SCH (14:27)
[2020-07-29] MEDS: metFORMIN 500 MG TAB PO SCH (14:27)
--- NOTE | 2020-07-30 07:21 | DS ---
DISCHARGE SUMMARY DATE OF SERVICE: 07/29/2020 FINAL DIAGNOSES: 1. Acute stroke involving the right cortical area and the right occipital area causing left homonymous hemianopsia. 2. Mild thrombocytopenia. 3. Bilateral carotid artery stenosis, left more than the right. 4. Diabetes mellitus type 2. Newly diagnosed. 5. History of recent COVID-19 and still currently Covid positive. 6. Hypertension. 7. History of degenerative joint disease. 8. History of ganglion removal. 9. Remote history of nicotine dependence. 10.Obesity with body mass index of 38.6. 11.FULL CODE. DISCHARGE DISPOSITION: The patient will be discharged in stable condition with guarded prognosis. HISTORY OF PRESENT ILLNESS: This 64-year-old gentleman with a past medical history of multiple medical problems admitted with features of stroke in the right occipital area. Patient treated symptomatically. Patient also had bilateral carotid stenosis. Dr. Morel saw the patient and recommended outpatient surgery. The patient was seen by multiple consultants. Medications were adjusted. Please refer to the multiple consultations including Neurology for further evaluation and treatment. A NEHA was also done by Cardiology which showed no evidence of any cardiac source embolization. On exam, cardiovascular system S1, S2. Abdomen soft. Nervous system: No focal deficits. DISCHARGE INSTRUCTIONS: 1. Discharge diet is cardiac diet. 2. Activity limited until followup. 3. Follow up with Dr. Babin in 2-3 days .. 4. Follow up with Dr. Rodas as recommended. 5. Follow up with Dr. Sebas Buchanan as recommended. 6. Follow up with Dr. Morel as recommended. Medications are as follows: 1. Dapagliflozin 5 mg daily. 2. Janumet 1 p.o. b.i.d. 3. Lyrica 100 mg t.i.d. 4. Vitamin D3 1000 daily. 5. Aspirin 81 mg daily. 6. Lipitor 80 mg q.h.s. 7. Lopressor 25 mg p.o. b.i.d. 8. Nitrostat p.r.n. 9. Norvasc 5 mg daily. 10.Plavix 75 mg daily. 11.Zestril 10 mg p.o. b.i.d. Once again the patient discharged in stable condition. Guarded prognosis. Once again as mentioned earlier outpatient followup with Dr. Morel and possible carotid endarterectomy as an outpatient. MMODL / IJN: [id number] /
--- NOTE | 2020-07-30 08:21 | DS ---
DISCHARGE SUMMARY DISCHARGE ADDENDUM: This 64-year-old gentleman admitted with multiple medical problems including acute stroke, also had significant carotid stenosis on the left side. The patient is medically stable and cleared for surgery by Dr. Morel in the ensuing few days. MMDIONICIO / JEFFN: [id number] /
== END 2020-07-29 15:05 | disposition home or self-care (01) | DRG 40 ==
LOC: EC 11:19 → 6NMEDSUR 15:13 → OBSVTOIN 07-26 16:00
PROVIDERS: ADMIT Hospitalist; ATTEND Hospitalist
PROC: 0JH632Z Insertion of Monitoring Device into Chest Subcutaneous Tissue and Fascia, Percutaneous Approach (ICD-10-PCS; principal; 2020-07-28 10:38)
DX: I63.232 Cerebral infarction due to unspecified occlusion or stenosis of left carotid arteries (principal); U07.1 COVID-19; G45.3 Amaurosis fugax; D69.6 Thrombocytopenia, unspecified; H53.462 Homonymous bilateral field defects, left side; E11.65 Type 2 diabetes mellitus with hyperglycemia; E78.5 Hyperlipidemia, unspecified; I10 Essential (primary) hypertension; I25.10 Atherosclerotic heart disease of native coronary artery without angina pectoris; E66.9 Obesity, unspecified; I45.10 Unspecified right bundle-branch block; M19.90 Unspecified osteoarthritis, unspecified site; R00.1 Bradycardia, unspecified; I65.21 Occlusion and stenosis of right carotid artery; R29.810 Facial weakness; Z68.38 Body mass index [BMI] 38.0-38.9, adult; Z79.84 Long term (current) use of oral hypoglycemic drugs; Z79.899 Other long term (current) drug therapy; Z79.82 Long term (current) use of aspirin; Z79.02 Long term (current) use of antithrombotics/antiplatelets; Z87.891 Personal history of nicotine dependence; Z85.46 Personal history of malignant neoplasm of prostate; Z92.3 Personal history of irradiation; Z95.5 Presence of coronary angioplasty implant and graft; Z87.01 Personal history of pneumonia (recurrent); Z96.60 Presence of unspecified orthopedic joint implant; Z98.890 Other specified postprocedural states; Z83.3 Family history of diabetes mellitus; Z80.9 Family history of malignant neoplasm, unspecified; Z82.0 Family history of epilepsy and other diseases of the nervous system
CPT/HCPCS: 33285; 36415; 70450; 70496; 70498; 70553; 71046; 80048; 80053; 80061; 82728; 83036; 84484; 85025; 85379; 85610; 85652; 85730; 86140; 87635; 93005; 93306; 93312; 93320; 93325; 93880; 96360; 99285

== ENCOUNTER → 2020-09-08 | Outpatient (CLI) | payer BC ==
[2020-09-08 07:35] LABS: Appearance,Urine Clear (Clear); Basophils % (A) 1 %; Bilirubin,Urine Negative (Negative); Blood,Urine Negative (Negative); Color,Urine Yellow; Eosinophils # (A) 0.2 k/uL (0-0.7); Eosinophils % (A) 4 %; Glucose,Urine (UA) 4+ (Negative); HCT 37.9 % (39.0-53.0); HGB 13.2 gm/dL (13.0-17.5); Ketones,Urine Negative (Negative); Leukocyte Esterase,Urine Negative (Negative); Lymphocytes # (A) 0.9 k/uL (1.0-4.8); Lymphocytes % (A) 13 %; MCH 30.8 pg (25.0-35.0); MCHC 34.8 g/dL (31.0-37.0); MCV 88.3 fL (80.0-100.0); Mean Platelet Volume 8.9; Monocytes # (A) 0.5 k/uL (0-1.0); Monocytes % (A) 8 %; Neutrophils # (A) 4.7 k/uL (1.3-7.7); Neutrophils % (A) 73 %; Nitrite,Urine Negative (Negative); PH, Urine 5.5 (5.0-8.0); Platelet Count 154 k/uL (150-450); Protein,Urine Negative (Negative); RBC 4.29 m/uL (4.30-5.90); RDW 14.2 % (11.5-15.5); Specific Gravity,Urine 1.039 (1.001-1.035); Urobilinogen,Urine <2.0 mg/dL (<2.0); WBC 6.4 k/uL (3.8-10.6)
[2020-09-08 07:48] LABS: African American GFR (CKD) >90 (>60 ml/min/1.73 sqM); Anion Gap 7 mmol/L; Blood Urea Nitrogen 14 mg/dL (9-20); Carbon Dioxide 27 mmol/L (22-30); Chloride 109 mmol/L (98-107); Non-African American GFR(CKD) >90 (>60 ml/min/1.73 sqM); Potassium 4.6 mmol/L (3.5-5.1); Sodium 143 mmol/L (137-145)
== END | disposition home or self-care (01) ==
LOC: LABPAT 07:09
PROVIDERS: ATTEND Surgery
DX: Z01.812 Encounter for preprocedural laboratory examination (principal); I65.22 Occlusion and stenosis of left carotid artery
CPT/HCPCS: 36415; 80051; 81003; 82565; 84520; 85025

== ENCOUNTER 2020-09-09 05:49 | Inpatient (IN) | payer BC ==
[2020-09-05 15:19] VITALS: BMI 36.6
[~2020-09-09 05:49] MED LIST changes: -DEXAMETHASONE SOD PHOSPHATE 10 MG/ML 1 ML VIAL IV ONE; +DEXAMETHASONE SOD PHOSPHATE 4 MG/ML 1 ML VIAL IV ONE; -HEPARIN SODIUM,PORCINE 5,000 UNIT/ML 1 ML VIAL SQ ONE; +LIDOCAINE 1% (10MG/ML) FOR IV START INTRADERMA PRN; -MIDAZOLAM (PF) 2 MG/2 ML VIAL IV PRN; -ceFAZolin IN SWFI 2 GM/20 ML SYRINGE IVP ONE; -fentaNYL (PF) 50 MCG/ML 2 ML AMP IV PRN
[2020-09-09 06:29] LABS: Glucose,Whole Blood 140 mg/dL (75-99)
[2020-09-09] MEDS: LACTATED RINGERS 1,000 ML IV SCH ×2 (06:33→16:07)
[2020-09-09] MEDS ORDERED: HYDROmorphone 0.5 MG/0.5 ML SYRINGE IVP PRN (07:00)
[2020-09-09] MEDS ORDERED: fentaNYL (PF) 50 MCG/ML 2 ML AMP IVP ONE (07:04)
[2020-09-09] MEDS ORDERED: MIDAZOLAM 2 MG/2 ML VIAL IVP ONE (07:05)
[2020-09-09] MEDS ORDERED: ROCURONIUM 10 MG/ML (5 ML VIAL) IV ONE (07:24)
[2020-09-09] MEDS ORDERED: HEPARIN SODIUM,PORCINE 10,000 UNIT/ML 1 ML VIAL ONE (07:24)
[2020-09-09] MEDS ORDERED: MIDAZOLAM 2 MG/2 ML VIAL ONE (07:24)
[2020-09-09] MEDS ORDERED: SUCCINYLCHOLINE CHLORIDE 100 MG/5 ML SYR IV ONE (07:24)
[2020-09-09] MEDS ORDERED: PROPOFOL 10 MG/ML 20 ML VIAL IV ONE (07:24)
[2020-09-09] MEDS ORDERED: fentaNYL (PF) 50 MCG/ML 2 ML AMP ONE (07:24)
[2020-09-09] MEDS ORDERED: PHENYLEPHRINE-0.9% NACL SYG 1,000 MCG/10 ML SYRINGE ONE (07:24)
[2020-09-09] MEDS ORDERED: ePHEDrine SULFATE/0.9% NACL/PF 50 MG/5 ML SYRINGE IV ONE (07:24)
[2020-09-09] MEDS ORDERED: LIDOCAINE 2% SYG (PF) 100 MG/5 ML ONE (07:24)
[2020-09-09] MEDS ORDERED: NEOSTIGMINE 1 MG/ML 10 ML VIAL ONE (07:24)
[2020-09-09] MEDS ORDERED: GLYCOPYRROLATE 0.2 MG/ML 2 ML VIAL ONE (07:24)
[2020-09-09] MEDS ORDERED: LIDOCAINE 1% INJ 10MG/ML (20 ML MDV) SQ ONE (08:29)
[2020-09-09] MEDS ORDERED: LACTATED RINGERS 1,000 ML IV ONE (08:39)
[2020-09-09] MEDS ORDERED: ceFAZolin 2,000 MG in SODIUM CHLORIDE 0.9% 500 ML IRRIGATION ONE (08:53)
[2020-09-09] MEDS ORDERED: HEPARIN SODIUM,PORCINE 2,000 UNIT in SODIUM CHLORIDE 0.9% 500 ML 1,000 ML IRRIGATION ONE (08:55)
[2020-09-09] MEDS ORDERED: THROMBIN (BOVINE) 5,000 UNIT VIAL TOPICAL ONE (09:55)
[2020-09-09] MEDS ORDERED: GELATIN SPONGE,ABSORB (LARGE) 1 EACH SPONGE TOPICAL ONE (09:56)
[2020-09-09] MEDS ORDERED: MAG HYDROX/AL HYDROX/SIMETH 30 ML CUP PO PRN (10:58)
[2020-09-09] MEDS ORDERED: BENZOCAINE/MENTHOL LOZENG 1 EACH LOZENGE MUCOUS MEM PRN (10:58)
[2020-09-09] MEDS ORDERED: TRIMETHOBENZAMIDE 100 MG/ML 2 ML VIAL IM PRN (10:58)
--- NOTE | 2020-09-09 11:06 | P.OP ---
Description of Procedure: Date of Procedure: 09/09/2020 Preoperative Diagnosis: Left symptomatic Internal carotid artery stenosis greater than 90% Postoperative Diagnosis: Same Procedure(s) Performed: Left carotid endarterectomy with patch angioplasty Anesthesia: LEATHA Surgeon: Pj Morel Estimated Blood Loss (ml): 50 Pathology: Carotid plaque Condition: stable Disposition: PACU Findings: High bifurcation with dense plaque extending up to the skull base. Large upper glossal nerve overlying the internal carotid artery which was retracted in order to access the distal internal carotid artery. Indications for Procedure: 65-year-old gentleman who previously was admitted to the hospital for amaurosis fugax involving his left eye underwent evaluation for carotid disease and was found to have severe left carotid stenosis greater than 90% on carotid Doppler and CT angiogram of the neck. He presents today for carotid endarterectomy and patch angioplasty. Description of Procedure: After written informed consent was obtained the patient all risks benefits and competitions were described the patient is brought to the operative suite and laid in a supine position. The area of the neck was prepped and draped in usual sterile fashion after appropriate anesthetic was performed per the anesthesiologist. A timeout was performed in normal fashion antibiotics were administered prior to incision. An oblique incision was then created just anterior to the sternocleidomastoid musculature with a 10 blade scalpel and dissection was carried down to the carotid sheath. The carotid sheath was then entered after facial vein was located and suture ligated in normal fashion. The common carotid, internal carotid, external carotid and superior thyroid arteries were located and dissected free in a meticulous fashion circumferentially and controlled with vessel loops. Attention was then placed to locating the vagus nerve as well as hypoglossal nerve which were both spared. Once controlled patient was administered heparin and followed with ACTs for appropriate heparinization. Once ACT was above 200 the proximal and distal aspects of the dissection were then controlled with vascular clamps. Arteriotomy was then created with 11 blade scalpel and extended with Sharma Diaz scissors. Utilizing pressure tubing stump pressures were obtained and were 84. No shunt was required and endarterectomy was then performed with a Whitetail and elevator. The plaque was then feathered at the distal aspect and the internal carotid artery and removed. The area was copiously irrigated with heparinized saline and all free debris was removed. A 7-0 Prolene suture was then placed to tack the distal aspect of the dissection at the internal carotid artery. A 0.8 x 8 cm bovine pericardial patch was then chosen and patch angioplasty was performed with 6-0 Prolene suture in a running fashion. Prior to last sutures being placed the inflow was released flushing any free debris out of the patch. This was reclamped and the internal carotid artery was released revealing good brisk flow and was once again reclamped. The external carotid and superior thyroid artery were then released followed by the common carotid artery to allow any free debris to be flushed into the external system. Final sutures were placed and secured. Internal carotid artery control was then released. Good pulsatile flow was noted through the patch and a Doppler was utilized demonstrating good brisk flow into the internal, external carotid arteries without any signs of obstruction. Hemostasis was then assured with Gelfoam and thrombin. A 10-Fil[place] MAR drain was then placed in normal fashion and secured with 3-0 nylon suture. The incision was then closed in a multilayer fashion after hemostasis was assured. The skin was then cleansed and dressings were placed. Patient tolerated the procedure well and was following commands and moving all extremities. Patient was then sent to PACU for recovery.
[2020-09-09 11:26] LABS: Glucose,Whole Blood 136 mg/dL (75-99)
[2020-09-09 12:06] LABS: Basophils % (A) 0 %; Eosinophils % (A) 0 %; HCT 35.9 % (39.0-53.0); HGB 12.3 gm/dL (13.0-17.5); Lymphocytes # (A) 0.5 k/uL (1.0-4.8); Lymphocytes % (A) 7 %; MCH 30.5 pg (25.0-35.0); MCHC 34.3 g/dL (31.0-37.0); MCV 88.8 fL (80.0-100.0); Mean Platelet Volume 9.5; Monocytes # (A) 0.1 k/uL (0-1.0); Monocytes % (A) 2 %; Neutrophils # (A) 6.2 k/uL (1.3-7.7); Neutrophils % (A) 91 %; Platelet Count 148 k/uL (150-450); RBC 4.04 m/uL (4.30-5.90); RDW 14.8 % (11.5-15.5); WBC 6.9 k/uL (3.8-10.6)
[2020-09-09] MEDS ORDERED: NITROGLYCERIN SL TABS 0.4 MG TAB SUBLINGUAL PRN (12:29)
--- NOTE | 2020-09-09 12:34 | P.CONS ---
History of Present Illness - Reason for Consult Management of hypertension, type 2 diabetes mellitus. - History of Present Illness This is a 65-year-old male admitted for left carotid endarterectomy with patch angioplasty for symptomatic internal carotid artery stenosis greater than 90% of the left side. Patient is clinically doing well just the was admitted, coming out of anesthesia. Patient denied any fever chills nausea vomiting dysuria. Patient is on multiple antiplatelet medications which she did take today morning. REVIEW OF SYSTEMS: CONSTITUTIONAL: No fever, no malaise, no fatigue. HEENT: No recent visual problems or hearing problems. Denied any sore throat. CARDIOVASCULAR: No chest pain, orthopnea, PND, no palpitations, no syncope. PULMONARY: No shortness of breath, no cough, no hemoptysis. GASTROINTESTINAL: No diarrhea, no nausea, no vomiting, no abdominal pain. NEUROLOGICAL: No headaches, no weakness, no numbness. HEMATOLOGICAL: Denies any bleeding or petechiae. GENITOURINARY: Denies any burning micturition, frequency, or urgency. MUSCULOSKELETAL/RHEUMATOLOGICAL: Denies any joint pain, swelling, or any muscle pain. ENDOCRINE: Denies any polyuria or polydipsia. The rest of the 14-point review of systems is negative. PHYSICAL EXAMINATION: GENERAL: The patient is alert and oriented x3, not in any acute distress. Well developed, well nourished. HEENT: Pupils are round and equally reacting to light. EOMI. No scleral icterus. No conjunctival pallor. Normocephalic, atraumatic. No pharyngeal erythema. No thyromegaly. Left-sided carotid endarterectomy CARDIOVASCULAR: S1 and S2 present. No murmurs, rubs, or gallops. PULMONARY: Chest is clear to auscultation, no wheezing or crackles. ABDOMEN: Soft, nontender, nondistended, normoactive bowel sounds. No palpable organomegaly. MUSCULOSKELETAL: No joint swelling or deformity. EXTREMITIES: No cyanosis, clubbing, or pedal edema. NEUROLOGICAL: Gross neurological examination did not reveal any focal deficits. SKIN: No rashes. Assessment and plan -Hypertension: Patient will be resumed on home regimen starting tomorrow -Carotid stenosis status post carotid endarterectomy patient is already in 2 ant iplatelet therapy, reinitiation of for these medications as per primary service -Coronary artery disease with the stent in the past his cardiac catheterization and stenting is in 2019 Hyperlipidemia -Type 2 diabetes mellitus patient resumed on her home regimen except for metformin and Januvia and patient will be on sliding scale insulin titration depending on the blood sugars DVT prophylaxis: Patient is presently on Lovenox Past Medical History Past Medical History: Cancer, Chest Pain / Angina, Diabetes Mellitus, Hyperlipidemia, Hypertension, Prostate Disorder Additional Past Medical History / Comment(s): prostate ca with sx and 39 radiation tx 2018, covid positive on april, TIA 06/2020-no residual effects, has a heart murmer, History of Any Multi-Drug Resistant Organisms: None Reported Past Surgical History: Heart Catheterization With Stent, Joint Replacement, Pro state Surgery Additional Past Surgical History / Comment(s): heart cath with one stent 2019, Left Wrist ganglion removal, Nasal surgery, left hip replacement Past Anesthesia/Blood Transfusion Reactions: No Reported Reaction Additional Past Anesthesia/Blood Transfusion Reaction / Comm: Never had blood transfusions Date of Last Stent Placement:: 03/2019 Smoking Status: Former smoker - Past Family History Mother Family Medical History: Cancer Additional Family Medical History / Comment(s): colon Father Family Medical History: Diabetes Mellitus, Neurologic Disorder Additional Family Medical History / Comment(s): Parkinsons Disease Sister(s) Family Medical History: Diabetes Mellitus Brother(s) Family Medical History: Diabetes Mellitus Medications and Allergies Home Medications Medication Instructions Recorded Confirmed Type Dapagliflozin Propanediol [Farxiga] 5 mg PO DAILY 06/30/18 09/09/20 History sitaGLIPtin PHOS/metFORMIN HCL 1 tab PO BID 06/30/18 09/09/20 History [Janumet 50-1,000 mg Tablet] Cholecalciferol [Vitamin D3 (25 1,000 unit PO DAILY 04/24/19 09/09/20 History Mcg = 1000 Iu)] Aspirin 81 mg PO DAILY #30 chew 04/26/19 09/09/20 Rx Atorvastatin [Lipitor] 80 mg PO HS #30 tab 04/26/19 09/09/20 Rx Clopidogrel [Plavix] 75 mg PO DAILY #30 tab 04/26/19 09/09/20 Rx Metoprolol Tartrate [Lopressor] 25 mg PO BID #60 tab 04/26/19 09/09/20 Rx Nitroglycerin Sl Tabs [Nitrostat] 0.4 mg SUBLINGUAL Q5M PRN #25 tab 04/26/19 09/05/20 Rx lisinopriL [Zestril] 10 mg PO BID #60 tab 04/26/19 09/09/20 Rx Pregabalin [Lyrica] 100 mg PO TID 07/25/20 09/09/20 History amLODIPine [Norvasc] 5 mg PO DAILY #30 tab 07/29/20 09/09/20 Rx Allergies Allergy/AdvReac Type Severity Reaction Status Date / Time No Known Allergies Allergy Verified 09/09/20 06:47 Physical Exam Vitals: Vital Signs Temp Pulse Pulse Resp BP BP Pulse Ox 09/09/20 11:54 61 16 129/50 93 L 09/09/20 11:40 58 L 18 168/46 94 L 09/09/20 11:25 62 18 144/51 99 09/09/20 11:09 98 F 63 18 148/57 98 09/09/20 06:17 96.9 F L 53 L 16 199/86 96 Intake and Output 09/08/20 09/09/20 09/09/20 22:59 06:59 14:59 Intake Total 500 1302.4 Output Total 290 Balance 500 1012.4 Intake: IV 500 1302.4 Output: Urine 270 Estimated Blood Loss 20 Other: Weight 105.3 kg Results CBC & Chem 7: 09/09/20 11:50 Labs: Abnormal Lab Results - Last 24 Hours (Table) 09/09/20 09/09/20 09/09/20 Range/Units 06:26 11:24 11:50 RBC 4.04 L (4.30-5.90) m/uL Hgb 12.3 L (13.0-17.5) gm/dL Hct 35.9 L (39.0-53.0) % Plt Count 148 L (150-450) k/uL Lymphocytes # 0.5 L (1.0-4.8) k/uL POC Glucose (mg/dL) 140 H 136 H (75-99) mg/dL
[2020-09-09] MEDS: INSULIN ASPART (NovoLOG) 100 UNIT/ML VIAL SQ SCH ×3 (16:08→20:47)
[2020-09-09] MEDS: PREGABALIN 100 MG CAP PO SCH ×2 (16:12→20:41)
[2020-09-09] MEDS: ACETAMINOPHEN TAB 325 MG TAB PO PRN (16:12)
[2020-09-09 16:51] LABS: Glucose,Whole Blood 144 mg/dL (75-99)
[2020-09-09] MEDS: METOPROLOL TARTRATE 25 MG TAB PO SCH (20:40)
[2020-09-09] MEDS: lisinopriL 10 MG TAB PO SCH (20:40)
[2020-09-09 20:45] LABS: Glucose,Whole Blood 202 mg/dL (75-99)
[2020-09-09] MEDS ORDERED: ATORVASTATIN 80 MG TAB PO SCH (21:00)
[2020-09-10] MEDS: LACTATED RINGERS 1,000 ML IV SCH ×2 (00:22→05:51)
[2020-09-10] MEDS: ACETAMINOPHEN TAB 325 MG TAB PO PRN (00:32)
[2020-09-10 03:50] LABS: Basophils % (A) 0 %; Eosinophils # (A) 0.1 k/uL (0-0.7); Eosinophils % (A) 1 %; HCT 32.7 % (39.0-53.0); HGB 11.1 gm/dL (13.0-17.5); Lymphocytes # (A) 0.7 k/uL (1.0-4.8); Lymphocytes % (A) 10 %; MCH 30.5 pg (25.0-35.0); MCHC 33.9 g/dL (31.0-37.0); MCV 90.1 fL (80.0-100.0); Mean Platelet Volume 8.4; Monocytes # (A) 0.6 k/uL (0-1.0); Monocytes % (A) 9 %; Neutrophils # (A) 5.3 k/uL (1.3-7.7); Neutrophils % (A) 79 %; Platelet Count 121 k/uL (150-450); RBC 3.63 m/uL (4.30-5.90); RDW 14.9 % (11.5-15.5); WBC 6.7 k/uL (3.8-10.6)
[2020-09-10 04:14] LABS: African American GFR (CKD) >90 (>60 ml/min/1.73 sqM); Anion Gap 8 mmol/L; Blood Urea Nitrogen 19 mg/dL (9-20); Calcium 8.7 mg/dL (8.4-10.2); Carbon Dioxide 22 mmol/L (22-30); Chloride 108 mmol/L (98-107); Glucose 138 mg/dL (74-99); Non-African American GFR(CKD) >90 (>60 ml/min/1.73 sqM); Potassium 3.8 mmol/L (3.5-5.1); Sodium 138 mmol/L (137-145)
[2020-09-10 06:56] LABS: Glucose,Whole Blood 131 mg/dL (75-99)
[2020-09-10] MEDS: INSULIN ASPART (NovoLOG) 100 UNIT/ML VIAL SQ SCH (06:59)
[2020-09-10] MEDS ORDERED: CHOLECALCIFEROL 25 MCG (1000 IU) TABLET PO SCH ×2 (09:00)
[2020-09-10] MEDS ORDERED: ENOXAPARIN 40 MG/0.4 ML SYRINGE SQ SCH (09:00)
[2020-09-10] MEDS ORDERED: amLODIPine 5 MG TAB PO SCH (09:00)
[2020-09-10] MEDS: PREGABALIN 100 MG CAP PO SCH (09:37)
[2020-09-10] MEDS: lisinopriL 10 MG TAB PO SCH (09:37)
[2020-09-10] MEDS: METOPROLOL TARTRATE 25 MG TAB PO SCH (09:39)
[2020-09-10 09:51] VITALS: TEMP 98.2
[2020-09-10 10:03] VITALS: BP 119/66; PULSE 51; RESP 17
--- NOTE | 2020-09-10 10:47 | P.DS ---
Providers Date of admission: 09/09/20 05:49 Expected date of discharge: 09/10/20 Attending physician: Pj Morel DO Consults: 09/09/20 11:01 Consult Physician Routine Consulting Provider: Wendi Al Consult Reason/Comments: medical management Do you want consulting provider notified?: Yes Primary care physician: [facility] Course: This is an 65-year-old white male who presents sent in for elective outpatient left carotid endarterectomy with a past medical history of diabetes mellitus, hypertension, dyslipidemia, and current smoker. He is postop day #1 for left carotid endarterectomy with patch angioplasty for left symptomatic internal carotid artery stenosis greater than 90%. Vital signs have been stable, arterial line has been discontinued and patient has voided. He had no acute findings overnight. Plan is for discharge home today area Assessment: The patient seen and examined in the ICU, he status postop day #1 for left carotid endarterectomy with patch angioplasty. Vital signs have been stable, no acute changes through the night. He denies any focal deficits, has been afebrile. Arterial line has been discontinued and patient is voiding and eating well. MAR drain with serous fluid approximately 60 MLs out yesterday and today. Assessment: 1. Postop day #1 left carotid endarterectomy with patch angioplasty 2. Left symptomatic internal carotid artery stenosis greater than 90% 3. Diabetes mellitus 4. Hypertension 5. Dyslipidemia 6. Tobacco use Plan: MAR drain removed, discharge instructions discussed with patient including activity and showering. Patient is to continue his aspirin, Plavix, and statin. Encouraged smoking cessation. If patient tolerates his lunch and ambulating he may be discharged home today. The impression and plan of care has been dictated as directed. Dr. Velasco I performed a history and examination of this patient, discussed the same with the dictator. I agree with the dictator's note ,documented as a scribe. Any additional findings or plans will be noted. Procedures: Left carotid endarterectomy with patch angioplasty Patient Condition at Discharge: Good Plan - Discharge Summary Discharge Rx Participant: No New Discharge Prescriptions: Continue Dapagliflozin Propanediol [Farxiga] 5 mg PO DAILY sitaGLIPtin PHOS/metFORMIN HCL [Janumet 50-1,000 mg Tablet] 1 tab PO BID Cholecalciferol [Vitamin D3 (25 Mcg = 1000 Iu)] 1,000 unit PO DAILY Aspirin 81 mg PO DAILY #30 chew Atorvastatin [Lipitor] 80 mg PO HS #30 tab Metoprolol Tartrate [Lopressor] 25 mg PO BID #60 tab Nitroglycerin Sl Tabs [Nitrostat] 0.4 mg SUBLINGUAL Q5M PRN #25 tab PRN Reason: Chest Pain Clopidogrel [Plavix] 75 mg PO DAILY #30 tab lisinopriL [Zestril] 10 mg PO BID #60 tab Pregabalin [Lyrica] 100 mg PO TID amLODIPine [Norvasc] 5 mg PO DAILY #30 tab Discharge Medication List Dapagliflozin Propanediol [Farxiga] 5 mg PO DAILY 06/30/18 [History] sitaGLIPtin PHOS/metFORMIN HCL [Janumet 50-1,000 mg Tablet] 1 tab PO BID 06/30/18 [History] Cholecalciferol [Vitamin D3 (25 Mcg = 1000 Iu)] 1,000 unit PO DAILY 04/24/19 [History] Aspirin 81 mg PO DAILY #30 chew 04/26/19 [Rx] Atorvastatin [Lipitor] 80 mg PO HS #30 tab 04/26/19 [Rx] Clopidogrel [Plavix] 75 mg PO DAILY #30 tab 04/26/19 [Rx] Metoprolol Tartrate [Lopressor] 25 mg PO BID #60 tab 04/26/19 [Rx] Nitroglycerin Sl Tabs [Nitrostat] 0.4 mg SUBLINGUAL Q5M PRN #25 tab 04/26/19 [Rx] lisinopriL [Zestril] 10 mg PO BID #60 tab 04/26/19 [Rx] Pregabalin [Lyrica] 100 mg PO TID 07/25/20 [History] amLODIPine [Norvasc] 5 mg PO DAILY #30 tab 07/29/20 [Rx] Follow up Appointment(s)/Referral(s): Pj Morel DO [STAFF PHYSICIAN] - 1 Week Patient Instructions/Handouts: *Surgery [facility] - Scopalamine Patch Instructions Activity/Diet/Wound Care/Special Instructions: No heavy lifting or strenuous activity, no showering until 09/11/2020, no tub bathing, swimming, soaking for 1-2 weeks. No dressing needed over incision. Discharge Disposition: HOME SELF-CARE
--- NOTE | 2020-09-10 11:01 | P.PN ---
Subjective Progress Note Date: 09/10/20 Principal diagnosis: Symptomatic Left ICA stenosis Patient seen and examined in the ICU setting up in his bed. He is postop day #1 for left endarterectomy with patch angioplasty. No acute changes through the night no focal deficits noted. Vital signs have been stable. Arterial line has been discontinued, patient has been up and voiding. He is tolerating a regular diet. He has been afebrile. Has had approximately 60 mL from his MAR drain serosanguineous fluid. Objective - Vital Signs Vital signs: Vital Signs Temp 98.2 F 09/10/20 09:00 Pulse 51 L 09/10/20 10:00 Resp 17 09/10/20 10:00 BP 119/66 09/10/20 10:00 Pulse Ox 94 L 09/10/20 10:00 Intake & Output 09/09/20 09/10/20 09/10/20 18:59 06:59 18:59 Intake Total 1757.4 1205 240 Output Total 580 320 400 Balance 1177.4 885 -160 Weight 110.2 kg Intake: IV 1757.4 955 240 Lactated Ringers 1,000 ml 455 955 240 @ 80 mls/hr IV .[id number] [facility] Rx#:[id number] Oral 250 Output: Drainage 40 20 Left Neck 40 20 Urine 520 300 400 Estimated Blood Loss 20 Other: Voiding Method Indwelling Catheter Urinal Urinal ABP, PAP, CO, CI - Last Documented Arterial Blood Pressure 109/45 - Exam General appearance: The patient is alert, oriented, in no acute distress. HET: Head is normocephalic and atraumatic. Pupils are equal and reactive. Neck: Supple without lymphadenopathy. Trachea midline. Left endarterectomy site clean dry and intact well approximated, MAR drain intact with suture with approximately 20 mL serosanguineous drainage Heart: S1 S2. Regular rate and rhythm. Lungs: Clear to auscultation. Abdomen: Soft, nontender, nondistended. Extremities: Normal skin color and turgor. No cyanosis, rash, ulceration, clubbing, or edema. Radial and pedal pulses are 2/4 bilaterally. Neurological: No focal deficits. Strength and sensation are grossly intact. - Labs CBC & Chem 7: 09/10/20 03:26 09/10/20 03:26 Labs: Abnormal Lab Results - Last 24 Hours (Table) 09/09/20 09/09/20 09/09/20 Range/Units 11:24 11:50 16:50 RBC 4.04 L (4.30-5.90) m/uL Hgb 12.3 L (13.0-17.5) gm/dL Hct 35.9 L (39.0-53.0) % Plt Count 148 L (150-450) k/uL Lymphocytes # 0.5 L (1.0-4.8) k/uL Chloride (98-107) mmol/L Glucose (74-99) mg/dL POC Glucose (mg/dL) 136 H 144 H (75-99) mg/dL 09/09/20 09/10/20 09/10/20 Range/Units 20:43 03:26 03:26 RBC 3.63 L (4.30-5.90) m/uL Hgb 11.1 L (13.0-17.5) gm/dL Hct 32.7 L (39.0-53.0) % Plt Count 121 L (150-450) k/uL Lymphocytes # 0.7 L (1.0-4.8) k/uL Chloride 108 H (98-107) mmol/L Glucose 138 H (74-99) mg/dL POC Glucose (mg/dL) 202 H (75-99) mg/dL 09/10/20 Range/Units 06:55 RBC (4.30-5.90) m/uL Hgb (13.0-17.5) gm/dL Hct (39.0-53.0) % Plt Count (150-450) k/uL Lymphocytes # (1.0-4.8) k/uL Chloride (98-107) mmol/L Glucose (74-99) mg/dL POC Glucose (mg/dL) 131 H (75-99) mg/dL Assessment and Plan Assessment: 1. Postop day #1 left carotid endarterectomy with patch angioplasty 2. Symptomatic left ICA stenosis greater than 90% 3. Diabetes mellitus 4. Hypertension 5. Dyslipidemia 6. Current smoker Plan: MAR drain removed. Patient may be discharged home. See discharge summary. Continue aspirin, Plavix, and statin. Follow up with Dr. Morel in 2 weeks. The impression and plan of care has been dictated as directed. Dr. Velasco I performed a history and examination of this patient, discussed the same with the dictator. I agree with the dictator's note ,documented as a scribe. Any additional findings or plans will be noted.
[2020-09-10 11:07] LABS: Glucose,Whole Blood 195 mg/dL (75-99)
--- NOTE | 2020-09-10 13:48 | P.PN ---
Subjective Progress Note Date: 09/10/20 - Reason for Consult Management of hypertension, type 2 diabetes mellitus. - History of Present Illness This is a 65-year-old male admitted for left carotid endarterectomy with patch angioplasty for symptomatic internal carotid artery stenosis greater than 90% of the left side. Patient is clinically doing well just the was admitted, coming out of anesthesia. Patient denied any fever chills nausea vomiting dysuria. Patient is on multiple antiplatelet medications which she did take today morning. 09/10/2020 Patient is seen in follow-up this morning continues to be closely monitored in the ICU. Plans are for discharge today from vascular surgery and we are following for medical management. Medications reviewed and patient takes metoprolol 25 mg twice daily and has been having heart rates in the low 50s and will decrease the dose to 12.5 mg twice daily and instructed the patient to follow-up with vascular surgery at scheduled appointment along with primary care provider. Patient also instructed to monitor blood pressure and rate in the outpatient setting and keep a diary for primary care follow-up. Review of systems: Constitutional: No reports of fatigue, fever, or chills Cardiovascular: No reports of chest pain or palpitations Respiratory: No reports of shortness of breath or cough GI: No reports of nausea, vomiting, or diarrhea : No reports of dysuria or retention Neurovascular: No reports of weakness or numbness All medications have been reviewed Objective - Vital Signs Vital signs: Vital Signs Temp 98.2 F 09/10/20 09:00 Pulse 51 L 09/10/20 10:00 Resp 17 09/10/20 10:00 BP 119/66 09/10/20 10:00 Pulse Ox 94 L 09/10/20 10:00 Intake & Output 09/09/20 09/10/20 09/10/20 18:59 06:59 18:59 Intake Total 1757.4 1205 240 Output Total 580 320 400 Balance 1177.4 885 -160 Weight 110.2 kg Intake: IV 1757.4 955 240 Lactated Ringers 1,000 ml 455 955 240 @ 80 mls/hr IV .[id number] [facility] Rx#:[id number] Oral 250 Output: Drainage 40 20 Left Neck 40 20 Urine 520 300 400 Estimated Blood Loss 20 Other: Voiding Method Indwelling Catheter Urinal Urinal ABP, PAP, CO, CI - Last Documented Arterial Blood Pressure 109/45 - Exam GENERAL: The patient is alert and oriented x3, not in any acute distress. Well developed, well nourished. HEENT: Pupils are round and equally reacting to light. EOMI. No scleral icterus. No conjunctival pallor. Normocephalic, atraumatic. No pharyngeal erythema. No thyromegaly. Left-sided carotid endarterectomy dressing is dry and intact CARDIOVASCULAR: S1 and S2 present. No murmurs, rubs, or gallops. PULMONARY: Chest is clear to auscultation, no wheezing or crackles. ABDOMEN: Soft, nontender, nondistended, normoactive bowel sounds. No palpable organomegaly. MUSCULOSKELETAL: No joint swelling or deformity. EXTREMITIES: No cyanosis, clubbing, or pedal edema. NEUROLOGICAL: Gross neurological examination did not reveal any focal deficits. SKIN: No rashes. - Labs CBC & Chem 7: 09/10/20 03:26 09/10/20 03:26 Labs: Abnormal Lab Results - Last 24 Hours (Table) 09/09/20 09/09/20 09/09/20 Range/Units 11:24 11:50 16:50 RBC 4.04 L (4.30-5.90) m/uL Hgb 12.3 L (13.0-17.5) gm/dL Hct 35.9 L (39.0-53.0) % Plt Count 148 L (150-450) k/uL Lymphocytes # 0.5 L (1.0-4.8) k/uL Chloride (98-107) mmol/L Glucose (74-99) mg/dL POC Glucose (mg/dL) 136 H 144 H (75-99) mg/dL 09/09/20 09/10/20 09/10/20 Range/Units 20:43 03:26 03:26 RBC 3.63 L (4.30-5.90) m/uL Hgb 11.1 L (13.0-17.5) gm/dL Hct 32.7 L (39.0-53.0) % Plt Count 121 L (150-450) k/uL Lymphocytes # 0.7 L (1.0-4.8) k/uL Chloride 108 H (98-107) mmol/L Glucose 138 H (74-99) mg/dL POC Glucose (mg/dL) 202 H (75-99) mg/dL 09/10/20 09/10/20 Range/Units 06:55 11:06 RBC (4.30-5.90) m/uL Hgb (13.0-17.5) gm/dL Hct (39.0-53.0) % Plt Count (150-450) k/uL Lymphocytes # (1.0-4.8) k/uL Chloride (98-107) mmol/L Glucose (74-99) mg/dL POC Glucose (mg/dL) 131 H 195 H (75-99) mg/dL Assessment and Plan Assessment: -Hypertension: Patient resumed on home regimen, decrease metoprolol to 12.5 mg twice a day as heart rate has been in the 50s -Carotid stenosis status post carotid endarterectomy patient is already on 2 antiplatelet therapy, reinitiation of for these medications as per primary service -Coronary artery disease with the stent in the past his cardiac catheterization and stenting is in 2019 -Hyperlipidemia -Type 2 diabetes mellitus patient resumed on her home regimen except for metformin and Januvia, instructed to resume diabetic medications and continue to monitor before meals and at bedtime in the outpatient setting -DVT prophylaxis: Patient is presently on Lovenox Plan: Continue with current medications and appropriate home medications have been resumed. Per nursing staff metoprolol has been being held as heart rate has been in the 50s and will decrease the dose of metoprolol 25 mg twice daily down to 12.5 mg twice daily and instructed the patient to continue to monitor blood pressure and heart rate and keep a diary for primary care follow-up along with vascular surgery follow-up in the outpatient setting. This was discussed with admitting services as well. Will continue to monitor during hospitalization as patient is anticipating discharge this afternoon. Thank you for this consultation.
== END 2020-09-10 11:41 | disposition home or self-care (01) | DRG 39 ==
LOC: 2ORMAIN 05:49 → 2SICU 11:30
PROVIDERS: ADMIT Surgery; ATTEND Surgery
PROC: 03CL0ZZ Extirpation of Matter from Left Internal Carotid Artery, Open Approach (ICD-10-PCS; principal; 2020-09-09 07:30)
PROC: 03UL0KZ Supplement Left Internal Carotid Artery with Nonautologous Tissue Substitute, Open Approach (ICD-10-PCS; principal; 2020-09-09 07:30)
DX: I65.22 Occlusion and stenosis of left carotid artery (principal); E11.9 Type 2 diabetes mellitus without complications; E78.5 Hyperlipidemia, unspecified; Z71.6 Tobacco abuse counseling; F17.210 Nicotine dependence, cigarettes, uncomplicated; I10 Essential (primary) hypertension; I25.10 Atherosclerotic heart disease of native coronary artery without angina pectoris; Z79.02 Long term (current) use of antithrombotics/antiplatelets; Z79.82 Long term (current) use of aspirin; Z79.84 Long term (current) use of oral hypoglycemic drugs; Z79.899 Other long term (current) drug therapy; Z82.0 Family history of epilepsy and other diseases of the nervous system; Z83.3 Family history of diabetes mellitus; Z85.46 Personal history of malignant neoplasm of prostate; Z86.16 Personal history of COVID-19; Z86.73 Personal history of transient ischemic attack (TIA), and cerebral infarction without residual deficits; Z96.642 Presence of left artificial hip joint; Z80.9 Family history of malignant neoplasm, unspecified; R01.1 Cardiac murmur, unspecified; Z98.890 Other specified postprocedural states
CPT/HCPCS: 80048; 85025; 86850; 86900; 86901; 88304; 88311

== ENCOUNTER 2021-02-01 10:33 | Observation (INO) | payer BC ==
--- NOTE | 2021-02-01 10:51 | ED ---
General Adult HPI - General Stated complaint: SEJAL Time Seen by Provider: 02/01/21 10:46 Source: patient, RN notes reviewed Mode of arrival: ambulatory Limitations: no limitations - History of Present Illness Initial comments: This a 65-year-old male presents emergency Department chief complaint shortness of breath. Patient states started last night. Patient has no associated pain or cough. Patient states he just has some pressure feeling. Patient states he's had chest pain in the past and currently. Patient does have a history of prostate cancer with treatment. Patient denies any asthma or COPD. patient states he had a cardiac stent placed less than 1 year ago. Patient again has no chest pain associated with this exertional shortness of breath. Patient denies fever or chills no sick contacts. - Related Data Home Medications Medication Instructions Recorded Confirmed Dapagliflozin Propanediol [Farxiga] 5 mg PO DAILY 06/30/18 02/01/21 sitaGLIPtin PHOS/metFORMIN HCL 1 tab PO BID 06/30/18 02/01/21 [Janumet 50-1,000 mg Tablet] Pregabalin [Lyrica] 100 mg PO TID 07/25/20 02/01/21 Atorvastatin [Lipitor] 80 mg PO DAILY 02/01/21 02/01/21 Cholecalciferol [Vitamin D3 (25 50 mcg PO DAILY 02/01/21 02/01/21 Mcg = 1000 Iu)] Lisinopril [Prinivil] 10 mg PO DAILY 02/01/21 02/01/21 Metoprolol Tartrate [Lopressor] 25 mg PO BID 02/01/21 02/01/21 Previous Rx's Medication Instructions Recorded Aspirin 81 mg PO DAILY #30 chew 04/26/19 Clopidogrel [Plavix] 75 mg PO DAILY #30 tab 04/26/19 Nitroglycerin Sl Tabs [Nitrostat] 0.4 mg SUBLINGUAL Q5M PRN #25 tab 04/26/19 amLODIPine [Norvasc] 5 mg PO DAILY #30 tab 07/29/20 Allergies Allergy/AdvReac Type Severity Reaction Status Date / Time No Known Allergies Allergy Verified 02/01/21 11:36 Review of Systems ROS Statement: Those systems with pertinent positive or pertinent negative responses have been documented in the HPI. ROS Other: All systems not noted in ROS Statement are negative. Past Medical History Past Medical History: Cancer, Chest Pain / Angina, Diabetes Mellitus, Hy perlipidemia, Hypertension, Prostate Disorder Additional Past Medical History / Comment(s): prostate ca with sx and 39 radiation tx 2018, covid positive on april, TIA 06/2020-no residual effects, has a heart murmer, History of Any Multi-Drug Resistant Organisms: None Reported Past Surgical History: Heart Catheterization With Stent, Joint Replacement, Prostate Surgery Additional Past Surgical History / Comment(s): heart cath with one stent 2019, Left Wrist ganglion removal, Nasal surgery, left hip replacement Past Anesthesia/Blood Transfusion Reactions: No Reported Reaction Additional Past Anesthesia/Blood Transfusion Reaction / Comment(s): Never had blood transfusions Date of Last Stent Placement:: 03/2019 Smoking Status: Former smoker - Past Family History Mother Family Medical History: Cancer Additional Family Medical History / Comment(s): colon Father Family Medical History: Diabetes Mellitus, Neurologic Disorder Additional Family Medical History / Comment(s): Parkinsons Disease Sister(s) Family Medical History: Diabetes Mellitus Brother(s) Family Medical History: Diabetes Mellitus Course Vital Signs 02/01/21 10:45 Temperature 98.4 F Pulse Rate 74 Respiratory 18 Rate Blood Pressure 137/89 O2 Sat by Pulse 95 Oximetry Medical Decision Making - Medical Decision Making Patient EKG shows atrial flutter, and this is new onset for patient. Patient did have a d-dimer which is negative. Patient will be admitted for further cardiology evaluation. - Lab Data Result diagrams: 02/01/21 11:06 02/01/21 11:06 Lab Results 02/01/21 02/01/21 02/01/21 Range/Units 11:06 11:06 11:06 WBC 7.1 (3.8-10.6) k/uL RBC 4.27 L (4.30-5.90) m/uL Hgb 13.6 (13.0-17.5) gm/dL Hct 39.3 (39.0-53.0) % MCV 92.0 (80.0-100.0) fL MCH 31.8 (25.0-35.0) pg MCHC 34.6 (31.0-37.0) g/dL RDW 14.9 (11.5-15.5) % Plt Count 134 L (150-450) k/uL MPV 8.8 Neutrophils % 81 % Lymphocytes % 8 % Monocytes % 8 % Eosinophils % 2 % Basophils % 0 % Neutrophils # 5.8 (1.3-7.7) k/uL Lymphocytes # 0.6 L (1.0-4.8) k/uL Monocytes # 0.6 (0-1.0) k/uL Eosinophils # 0.1 (0-0.7) k/uL Basophils # 0.0 (0-0.2) k/uL PT 10.9 (9.0-12.0) sec INR 1.0 (<1.2) APTT 23.8 (22.0-30.0) sec D-Dimer 0.96 H (<0.60) mg/L FEU Sodium 140 (137-145) mmol/L Potassium 4.1 (3.5-5.1) mmol/L Chloride 107 (98-107) mmol/L Carbon Dioxide 20 L (22-30) mmol/L Anion Gap 13 mmol/L BUN 15 (9-20) mg/dL Creatinine 0.66 (0.66-1.25) mg/dL Est GFR (CKD-EPI)AfAm >90 (>60 ml/min/1.73 sqM) Est GFR (CKD-EPI)NonAf >90 (>60 ml/min/1.73 sqM) Glucose 141 H (74-99) mg/dL Calcium 9.5 (8.4-10.2) mg/dL Total Bilirubin 1.1 (0.2-1.3) mg/dL AST 28 (17-59) U/L ALT 33 (4-49) U/L Alkaline Phosphatase 143 H (38-126) U/L Troponin I (0.000-0.034) ng/mL NT-Pro-B Natriuret Pep pg/mL Total Protein 6.9 (6.3-8.2) g/dL Albumin 4.2 (3.5-5.0) g/dL Coronavirus (PCR) (Not Detectd) 02/01/21 02/01/21 02/01/21 Range/Units 11:06 11:06 11:37 WBC (3.8-10.6) k/uL RBC (4.30-5.90) m/uL Hgb (13.0-17.5) gm/dL Hct (39.0-53.0) % MCV (80.0-100.0) fL MCH (25.0-35.0) pg MCHC (31.0-37.0) g/dL RDW (11.5-15.5) % Plt Count (150-450) k/uL MPV Neutrophils % % Lymphocytes % % Monocytes % % Eosinophils % % Basophils % % Neutrophils # (1.3-7.7) k/uL Lymphocytes # (1.0-4.8) k/uL Monocytes # (0-1.0) k/uL Eosinophils # (0-0.7) k/uL Basophils # (0-0.2) k/uL PT (9.0-12.0) sec INR (<1.2) APTT (22.0-30.0) sec D-Dimer (<0.60) mg/L FEU Sodium (137-145) mmol/L Potassium (3.5-5.1) mmol/L Chloride (98-107) mmol/L Carbon Dioxide (22-30) mmol/L Anion Gap mmol/L BUN (9-20) mg/dL Creatinine (0.66-1.25) mg/dL Est GFR (CKD-EPI)AfAm (>60 ml/min/1.73 sqM) Est GFR (CKD-EPI)NonAf (>60 ml/min/1.73 sqM) Glucose (74-99) mg/dL Calcium (8.4-10.2) mg/dL Total Bilirubin (0.2-1.3) mg/dL AST (17-59) U/L ALT (4-49) U/L Alkaline Phosphatase (38-126) U/L Troponin I <0.012 (0.000-0.034) ng/mL NT-Pro-B Natriuret Pep 2110 pg/mL Total Protein (6.3-8.2) g/dL Albumin (3.5-5.0) g/dL Coronavirus (PCR) Not Detected (Not Detectd) Disposition Clinical Impression: Atrial flutter, Exertional shortness of breath Disposition: ADMITTED IP TO THIS [facility] Condition: Fair Referrals: Zack Babin MD [Primary Care Provider] - 1-2 days
[2021-02-01 11:22] LABS: Basophils % (A) 0 %; Eosinophils # (A) 0.1 k/uL (0-0.7); Eosinophils % (A) 2 %; HCT 39.3 % (39.0-53.0); HGB 13.6 gm/dL (13.0-17.5); Lymphocytes # (A) 0.6 k/uL (1.0-4.8); Lymphocytes % (A) 8 %; MCH 31.8 pg (25.0-35.0); MCHC 34.6 g/dL (31.0-37.0); Mean Platelet Volume 8.8; Monocytes # (A) 0.6 k/uL (0-1.0); Monocytes % (A) 8 %; Neutrophils # (A) 5.8 k/uL (1.3-7.7); Neutrophils % (A) 81 %; Platelet Count 134 k/uL (150-450); RBC 4.27 m/uL (4.30-5.90); RDW 14.9 % (11.5-15.5); WBC 7.1 k/uL (3.8-10.6)
[2021-02-01 11:35] LABS: ALT 33 U/L (4-49); AST 28 U/L (17-59); African American GFR (CKD) >90 (>60 ml/min/1.73 sqM); Albumin 4.2 g/dL (3.5-5.0); Alkaline Phosphatase 143 U/L (38-126); Anion Gap 13 mmol/L; Blood Urea Nitrogen 15 mg/dL (9-20); Calcium 9.5 mg/dL (8.4-10.2); Carbon Dioxide 20 mmol/L (22-30); Chloride 107 mmol/L (98-107); Glucose 141 mg/dL (74-99); Non-African American GFR(CKD) >90 (>60 ml/min/1.73 sqM); Potassium 4.1 mmol/L (3.5-5.1); Sodium 140 mmol/L (137-145); Total Bilirubin 1.1 mg/dL (0.2-1.3); Total Protein 6.9 g/dL (6.3-8.2)
[2021-02-01 11:36] LABS: Partial Thromboplastin Time 23.8 sec (22.0-30.0); Prothrombin Time 10.9 sec (9.0-12.0)
--- NOTE | 2021-02-01 12:05 | XR ---
EXAMINATION TYPE: XR chest 2V DATE OF EXAM: 02/01/2021 COMPARISON: 07/25/2020 HISTORY: Shortness of breath TECHNIQUE: Frontal and lateral views of the chest are obtained. FINDINGS: Scattered senescent parenchymal changes noted. Hyperinflation compatible with COPD. No evidence for infiltrate. No evidence for atelectasis. Heart size is stable. Mediastinal structures are stable and grossly unremarkable. No evidence for hilar prominence. Degenerative changes dorsal spine. IMPRESSION: 1. No evidence for acute pulmonary disease.
--- NOTE | 2021-02-01 13:20 | CT ---
EXAMINATION TYPE: CT chest angio for PE DATE OF EXAM: 02/01/2021 COMPARISON: None HISTORY: SEJAL, Elevated D-dimer CT DLP: 613.6 mGycm CONTRAST: CT chest with contrast and 3D reconstruction with MIP imaging is performed without and with IV Contra st, patient injected with 100 ml mL of Isovue 370. Contrast-enhanced CT of the chest was performed through the course of the pulmonary arteries with damon g and mediastinal window settings submitted. 3D reconstruction with MIP imaging was also performed. PULMONARY ARTERIES: The pulmonary arteries and their major tributaries are patent. I do not see kevin dence for sizable filling defect to suggest pulmonary embolic process. LUNGS: Small bilateral pleural effusions and left basilar atelectasis and/or infiltrate. No pulmonary nodule or mass is detected. MEDIASTINUM: Thoracic aorta is of normal caliber. The heart is mildly enlarged. Small pericardial ef fusion noted. No evidence for mediastinal mass. No mediastinal lymph nodes greater than 1cm. HILAR STRUCTURES: No evidence for mass. No hilar lymph nodes greater than 1 cm. UPPER ABDOMEN: No significant abnormality is seen. IMPRESSION: 1. No evidence for Pulmonary embolism at this time.
[2021-02-01] MEDS ORDERED: HEPARIN SODIUM 1,000 UN/ML (10ML VL) IV ONE (13:54)
[2021-02-01] MEDS ORDERED: NITROGLYCERIN SL TABS 0.4 MG TAB SUBLINGUAL PRN (13:54)
[2021-02-01] MEDS ORDERED: ASPIRIN 81 MG PO STA (13:54)
[2021-02-01] MEDS ORDERED: HEPARIN SOD,PORK IN 0.45% NACL 25,000 UNIT in 0.45% NACL 1 250ML.BAG IV SCH (14:00)
[2021-02-01] MEDS ORDERED: HEPARIN SODIUM 1,000 UN/ML (10ML VL) IV PRN (14:21)
[2021-02-01 17:20] LABS: Glucose,Whole Blood 161 mg/dL (75-99)
[2021-02-01] MEDS: PREGABALIN 100 MG CAP PO SCH ×2 (18:08→20:44)
--- NOTE | 2021-02-01 19:30 | CONS ---
CONSULTATION CHIEF COMPLAINT: Shortness of breath. This is a 65-year-old gentleman with history of coronary artery disease, status post prior angioplasty, history of TIA, status post loop recorder placement, hypertension, diabetes, dyslipidemia who presented to hospital complaining of shortness of breath. His shortness of breath is mild to moderate intensity, comes on with exertion and is relieved with rest. Symptoms have been going on for the last several days. He does not have any chest pain. There is no history of leg edema, PND or orthopnea. Admission EKG revealed atrial fibrillation with nonspecific ST-T wave changes, and this is new. His D-dimer was mildly elevated and he went on to have a CT scan of the chest that was negative for pulmonary embolism. He has a history of TIA and had a NEHA that was negative for PFO or cardiac thrombus, had a loop recorder placed and has been followed for about 6 months that was uneventful. Patient also had a cardiac catheterization in March of 2019 that revealed significant stenosis involving second OM branch, for which he had angioplasty with stent placement. LAD, left main and right coronary artery were free of significant disease. I believe patient's shortness of breath is probably related to the atrial fibrillation, and the prior episode of TIA is also related to it. He needs long-term anticoagulation with either Xarelto or Eliquis. He is currently on IV heparin. Once he is adequately anticoagulated in 3 weeks' time, he should undergo cardioversion, and I believe being in sinus rhythm will help with his shortness of breath. We should also consider an outpatient stress test on him to rule out ischemia, given the known CAD and prior angioplasty. PAST MEDICAL HISTORY: Significant for coronary artery disease, status post angioplasty of OM branch, TIA, hypertension, diabetes, dyslipidemia. CURRENT MEDICATIONS: Current medications include aspirin, atorvastatin, Plavix, Lopressor, Prinivil 10 daily, Lyrica, Norvasc 5 daily, Janumet. ALLERGIES: There are NO KNOWN DRUG ALLERGIES. FAMILY HISTORY: Negative for premature coronary artery disease. SOCIAL HISTORY: Negative for current smoking, EtOH abuse or drug abuse. REVIEW OF SYSTEMS: HEENT is unremarkable. CARDIAC: As described above. RESPIRATORY: As described above. GI: Negative. GENITOURINARY: Negative. ALLERGY/IMMUNOLOGY: Negative. SKIN: Negative. MUSCULOSKELETAL: Significant for arthritis. PSYCHOSOCIAL: Negative. ENDOCRINE: Negative. DERMATOLOGY: Negative. CONSTITUTIONAL: Negative. ONCOLOGICAL: Negative. FRYER OPERATOR: Negative. Rest of the system review is not relevant. PHYSICAL EXAMINATION: Comfortable at rest. Vital signs are stable. O2 saturation is 95% on room air. There is no jugular venous distention. Carotid upstroke is normal. There is no bruit. Chest exam reveals good air entry bilaterally. Heart exam reveals first and second heart sounds. No gallop. No murmur. No rub. Abdomen is soft, nontender. Examination of extremities did not reveal any edema. Peripheral pulses are felt. LABS: Troponins are negative. BNP is elevated, but of no clear clinical significance. Coronavirus test is negative. D-dimer is elevated. EKG shows atrial fibrillation. Chest x-ray is negative. ASSESSMENT: 1. Shortness of breath, probably related to the atrial fibrillation. 2. Persistent atrial fibrillation. 3. Transient ischemic attack secondary to atrial fibrillation. 4. Coronary artery disease, status post angioplasty. 5. Hypertension. 6. Diabetes. 7. Dyslipidemia. PLAN: Patient is on IV heparin. Will switch him to Eliquis or Xarelto, depending upon what he is covered. Obtain a 2D echo in the morning. Once echo is done and he is anticoagulated, he may be discharged home and arrange outpatient followup with Dr. Gomez. He will undergo cardioversion in 3 weeks' time, and if he is still short of breath with activity, we should consider a stress test on him. Patient is not in heart failure. BNP elevation is not related to congestive heart failure. MMODL / IJN: [id number] /
[2021-02-01 19:50] LABS: Glucose,Whole Blood 127 mg/dL (75-99)
[2021-02-01] MEDS: METOPROLOL TARTRATE 25 MG TAB PO SCH (20:44)
[2021-02-01] MEDS ORDERED: metFORMIN 500 MG TAB PO SCH (21:00)
[2021-02-02 05:42] LABS: Glucose,Whole Blood 122 mg/dL (75-99)
[2021-02-02] MEDS: INSULIN ASPART (NovoLOG) 100 UNIT/ML VIAL SQ SCH ×3 (05:52→17:03)
[2021-02-02] MEDS: METOPROLOL TARTRATE 25 MG TAB PO SCH (08:33)
[2021-02-02] MEDS: PREGABALIN 100 MG CAP PO SCH ×2 (08:34→17:03)
[2021-02-02] MEDS ORDERED: ATORVASTATIN 80 MG TAB PO SCH (09:00)
[2021-02-02] MEDS ORDERED: ASPIRIN 81 MG PO SCH (09:00)
[2021-02-02] MEDS ORDERED: CLOPIDOGREL 75 MG TAB PO SCH (09:00)
[2021-02-02] MEDS ORDERED: amLODIPine 5 MG TAB PO SCH (09:00)
[2021-02-02] MEDS ORDERED: NON FORMULARY DRUG (Dapagliflozin Propanediol [Farxiga] 5 MG Tablet) PO SCH (09:00)
[2021-02-02] MEDS ORDERED: LINAGLIPTIN 5 MG TABLET PO SCH (09:00)
[2021-02-02] MEDS ORDERED: ASPIRIN 325 MG TAB PO SCH (09:00)
[2021-02-02] MEDS ORDERED: lisinopriL 10 MG TAB PO SCH (09:00)
[2021-02-02] MEDS ORDERED: CHOLECALCIFEROL 25 MCG (1000 IU) TABLET PO SCH (09:00)
[2021-02-02 09:09] VITALS: RESP 20
--- NOTE | 2021-02-02 09:50 | P.HPIM ---
History of Present Illness H&P Date: 02/01/21 Chief Complaint: Shortness of breath Patient is a 65-year-old male with a known history of hypertension, hyperlipidemia, diabetes type 2 [id number], history of prostate cancer status post surgery and radiation in 2018 and Covid 19 infection in April 2020 and previous history of smoking presents to ER with the complaints of shortness of breath and exertional dyspnea. Patient states that last night his symptoms started with difficulty in breathing last night. Patient felt very tired and due to worsening shortness of breath patient is to ER for evaluation.. Denied any complaints of chest pain. He felt like chest tightness. No fever no chills. Cough without any sputum production. No nausea vomiting abdominal pain or diarrhea. Patient had loop recorder placed about 6 months ago. Chest x-ray showed no evidence for acute pulmonary disease. EKG showed atrial fibrillation. Laboratory data showed WBC 7.1 hemoglobin 13.6 and platelets 134 and d-dimer lev el is 0.96 Bicarb is 20 BUN 15 and creatinine 0.66 lactic acid 1.2 ProBNP 2110 and troponin 3 negative. Covid [address] angiogram of the chest showed no evidence of PE. Review of Systems Constitutional: Patient denies any fever or chills . No generalized weakness or weight loss. Abdomen: Patient denied nausea vomiting and diarrhea and abdominal pain. Cardiovascular: Patient does have chest tightness and exertional dyspnea. No palpitations no lower except the swelling.. Respiratory: patient denied any cough is from production. No shortness of breath Neurologic: Patient denied any numbness or tingling headache. Musculoskeletal: Patient denies any complaints of joint swelling or deformity. Skin: Negative Psychiatric: Negative Endocrine: No heat or cold intolerance. No recent weight gain. Genitourinary: No dysuria or hematuria. All other 14 point ROS negative except the above Past Medical History Past Medical History: Cancer, Chest Pain / Angina, Diabetes Mellitus, Hype rlipidemia, Hypertension, Prostate Disorder Additional Past Medical History / Comment(s): prostate ca with sx and 39 radiation tx 2018, covid positive on april, TIA 06/2020-no residual effects, has a heart murmer, History of Any Multi-Drug Resistant Organisms: None Reported Past Surgical History: Heart Catheterization With Stent, Joint Replacement, Prostate Surgery Additional Past Surgical History / Comment(s): heart cath with one stent 2020, Left Wrist ganglion removal, Nasal surgery, left hip replacement Past Anesthesia/Blood Transfusion Reactions: No Reported Reaction Additional Past Anesthesia/Blood Transfusion Reaction / Comment(s): Never had blood transfusions Date of Last Stent Placement:: 03/2019 Past Psychological History: No Psychological Hx Reported Smoking Status: Former smoker Past Alcohol Use History: None Reported Additional Past Alcohol Use History / Comment(s): SMOKED 25 YEARS, 1 PPD, QUIT 02/1999 Past Drug Use History: None Reported - Past Family History Mother Family Medical History: Cancer Additional Family Medical History / Comment(s): colon Father Family Medical History: Diabetes Mellitus, Neurologic Disorder Additional Family Medical History / Comment(s): Parkinsons Disease Sister(s) Family Medical History: Diabetes Mellitus Brother(s) Family Medical History: Diabetes Mellitus Medications and Allergies Home Medications Medication Instructions Recorded Confirmed Type Dapagliflozin Propanediol [Farxiga] 5 mg PO DAILY 06/30/18 02/01/21 History sitaGLIPtin PHOS/metFORMIN HCL 1 tab PO BID 06/30/18 02/01/21 History [Janumet 50-1,000 mg Tablet] Aspirin 81 mg PO DAILY #30 chew 04/26/19 02/01/21 Rx Clopidogrel [Plavix] 75 mg PO DAILY #30 tab 04/26/19 02/01/21 Rx Nitroglycerin Sl Tabs [Nitrostat] 0.4 mg SUBLINGUAL Q5M PRN #25 tab 04/26/19 02/01/21 Rx Pregabalin [Lyrica] 100 mg PO TID 07/25/20 02/01/21 History amLODIPine [Norvasc] 5 mg PO DAILY #30 tab 07/29/20 02/01/21 Rx Atorvastatin [Lipitor] 80 mg PO DAILY 02/01/21 02/01/21 History Cholecalciferol [Vitamin D3 (25 50 mcg PO DAILY 02/01/21 02/01/21 History Mcg = 1000 Iu)] Lisinopril [Prinivil] 10 mg PO DAILY 02/01/21 02/01/21 History Metoprolol Tartrate [Lopressor] 25 mg PO BID 02/01/21 02/01/21 History Allergies Allergy/AdvReac Type Severity Reaction Status Date / Time No Known Allergies Allergy Verified 02/01/21 11:36 Physical Exam Vitals: Vital Signs Temp Pulse Pulse Resp BP BP Pulse Ox 02/01/21 18:19 92 L 02/01/21 17:00 98.1 F 64 18 142/79 92 L 02/01/21 15:30 98.2 F 65 20 173/82 95 02/01/21 14:30 61 22 162/92 95 02/01/21 14:29 98.1 F 64 18 142/79 92 L 02/01/21 13:30 60 20 150/86 95 02/01/21 12:30 61 22 144/76 95 02/01/21 11:49 22 02/01/21 10:45 98.4 F 74 18 137/89 95 Intake and Output 02/01/21 02/01/21 02/01/21 06:59 14:59 22:59 Intake Total 42.808 Balance 42.808 Intake: Intake, IV Titration 42.808 Amount Heparin Sod,Pork in 0.45% 42.808 NaCl 25,000 unit In 0.45 % NaCl 1 250ml.bag @ 9.58 UNITS/KG/HR 9.994 mls/hr IV .Q24H [facility] Rx#: [id number] Oral 0 Other: Weight 104.326 kg PHYSICAL EXAMINATION: Patient is lying in the bed comfortably, no acute distress, awake alert and oriented.. HEENT: Normocephalic. Neck is supple. Pupils reactive. Nostrils clear. Oral cavity is moist. Neck reveals no JVD, carotid bruits, or thyromegaly. CHEST EXAMINATION: Trachea is central. Symmetrical expansion. Bibasilar diminished sounds. No wheezing or rhonchi.. CARDIAC: Normal S1, S2 with no gallops. No murmurs ABDOMEN: Soft. Bowel sounds normal. No organomegaly. No abdominal bruits. Extremities: reveal no edema. No clubbing or cyanosis Neurologically awake, alert, oriented x3 with well-coordinated movements. No focal deficits noted Skin: No rash or skin lesions. Psychiatric: Coperative. Nonsuicidal Musculoskeletal: No joint swelling or deformity. Normal range of motion. Results CBC & Chem 7: 02/01/21 11:06 02/01/21 11:06 Labs: Abnormal Lab Results - Last 24 Hours (Table) 02/01/21 02/01/21 02/01/21 Range/Units 11:06 11:06 11:06 RBC 4.27 L (4.30-5.90) m/uL Plt Count 134 L (150-450) k/uL Lymphocytes # 0.6 L (1.0-4.8) k/uL APTT (22.0-30.0) sec D-Dimer 0.96 H (<0.60) mg/L FEU Carbon Dioxide 20 L (22-30) mmol/L Glucose 141 H (74-99) mg/dL POC Glucose (mg/dL) (75-99) mg/dL Alkaline Phosphatase 143 H (38-126) U/L 02/01/21 02/01/21 02/01/21 Range/Units 14:37 17:19 17:43 RBC (4.30-5.90) m/uL Plt Count (150-450) k/uL Lymphocytes # (1.0-4.8) k/uL APTT 94.5 H 42.8 H (22.0-30.0) sec D-Dimer (<0.60) mg/L FEU Carbon Dioxide (22-30) mmol/L Glucose (74-99) mg/dL POC Glucose (mg/dL) 161 H (75-99) mg/dL Alkaline Phosphatase (38-126) U/L 02/01/21 Range/Units 19:49 RBC (4.30-5.90) m/uL Plt Count (150-450) k/uL Lymphocytes # (1.0-4.8) k/uL APTT (22.0-30.0) sec D-Dimer (<0.60) mg/L FEU Carbon Dioxide (22-30) mmol/L Glucose (74-99) mg/dL POC Glucose (mg/dL) 127 H (75-99) mg/dL Alkaline Phosphatase (38-126) U/L Thrombosis Risk Factor Assmnt - DVT/VTE Prophylaxis DVT/VTE Prophylaxis: Pharmacologic Prophylaxis ordered - Choose All That Apply Any of the Below Risk Factors Present?: No Other Risk Factors: Yes Each Risk Factor Represents 2 Points: Age 61-74 years Thrombosis Risk Factor Assessment Total Risk Factor Score: 2 Thrombosis Risk Factor Assessment Level: Low Risk Assessment and Plan Assessment: New onset atrial fibrillation/flutter Shortness of breath secondary to above History of TIA 06/2020 and had a NEHA showed no PFO or cardiac thrombus. Loop Recorder placed about 6 months ago. Coronary artery disease with history of stent placement Hypertension Hyperlipidemia Diabetes type 2 [id number] History of prostate cancer status post radiation and surgery covid positive on april Previous history of smoking osteoarthritis Obesity with BMI 39.3 DVT prophylaxis Plan: Patient will be continued on telemetry monitoring. Continue with heparin drip. Heart rate is controlled now. Cardiology was consulted for evaluation. Patient does have history of loop recorder placement about 6 months ago due to symptoms of TIA. Continue with aspirin and metoprolol. Insulin sliding scale and follow blood sugars closely. Continue to follow closely. Time with Patient: Greater than 30
[2021-02-02 10:29] LABS: Chol/HDL Ratio 2.07 Ratio; LDL Cholesterol,Calculated 37.2 mg/dL (0.0-131.0); VLDL Calculation 14.48 mg/dL (5.00-40.00)
--- NOTE | 2021-02-02 10:44 | P.PN ---
Subjective Progress Note Date: 02/02/21 Principal diagnosis: paroxysmal atrial fibrillation This is a 65-year-old gentleman with coronary artery disease and prior stenting of the left circumflex as well as hypertension and dyslipidemia and also history of precordial implantation was admitted to the hospital with shortness of breath and he was diagnosed with atrial fibrillation with RVR which was a newly diagnosis the patient. He was seen this morning. He remains in atrial fibrillation was controlled heart rate. He feels better indeterminable shortness of breath and no symptoms of dizziness or lightheadedness or presyncope or syncope nor symptoms of chest pain or chest discomfort. Currently he is on heparin IV. We are in process of finding out if the patient is covered for one of the noval anticoagulation agents and if so he can be discharged home later on today. His heart rate has been under good control. He might benefit from cardioversion down the line. The echo still pending. Objective - Vital Signs Vital signs: Vital Signs Temp 97.9 F 02/02/21 08:00 Pulse 80 02/02/21 08:00 Resp 20 02/02/21 08:00 BP 185/83 02/02/21 08:00 Pulse Ox 91 L 02/02/21 08:00 Intake & Output 02/01/21 02/02/21 02/02/21 18:59 06:59 18:59 Intake Total 42.808 326.782 200 Balance 42.808 326.782 200 Weight 104.326 kg 107 kg Intake: Intake, IV Titration 42.808 86.782 Amount Heparin Sod,Pork in 0.45% 42.808 86.782 NaCl 25,000 unit In 0.45 % NaCl 1 250ml.bag @ 9.58 UNITS/KG/HR 9.994 mls/hr IV .Q24H [facility] Rx#: [id number] Oral 0 240 200 Other: # Voids 1 0 # Bowel Movements 0 - Constitutional General appearance: Present: no acute distress - Respiratory Respiratory: bilateral: diminished - Cardiovascular Rhythm: irregularly irregular - Labs CBC & Chem 7: 02/01/21 11:06 02/01/21 11:06 Labs: Abnormal Lab Results - Last 24 Hours (Table) 02/01/21 02/01/21 02/01/21 Range/Units 11:06 11:06 11:06 RBC 4.27 L (4.30-5.90) m/uL Plt Count 134 L (150-450) k/uL Lymphocytes # 0.6 L (1.0-4.8) k/uL APTT (22.0-30.0) sec D-Dimer 0.96 H (<0.60) mg/L FEU Carbon Dioxide 20 L (22-30) mmol/L Glucose 141 H (74-99) mg/dL POC Glucose (mg/dL) (75-99) mg/dL Alkaline Phosphatase 143 H (38-126) U/L 02/01/21 02/01/21 02/01/21 Range/Units 14:37 17:19 17:43 RBC (4.30-5.90) m/uL Plt Count (150-450) k/uL Lymphocytes # (1.0-4.8) k/uL APTT 94.5 H 42.8 H (22.0-30.0) sec D-Dimer (<0.60) mg/L FEU Carbon Dioxide (22-30) mmol/L Glucose (74-99) mg/dL POC Glucose (mg/dL) 161 H (75-99) mg/dL Alkaline Phosphatase (38-126) U/L 02/01/21 02/02/21 02/02/21 Range/Units 19:49 01:33 05:40 RBC (4.30-5.90) m/uL Plt Count (150-450) k/uL Lymphocytes # (1.0-4.8) k/uL APTT 41.0 H (22.0-30.0) sec D-Dimer (<0.60) mg/L FEU Carbon Dioxide (22-30) mmol/L Glucose (74-99) mg/dL POC Glucose (mg/dL) 127 H 122 H (75-99) mg/dL Alkaline Phosphatase (38-126) U/L Assessment and Plan Assessment: Assessment #1 atrial fibrillation was controlled heart rate #2 paroxysmal atrial fibrillation #3 coronary artery disease #4 multiple comorbid conditions Plan Continue the current medical regimen Finding out if the patient discomfort for oral anticoagulation Follow-up on the echocardiogram Possible discharge home after the echo.
[2021-02-02] MEDS ORDERED: APIXABAN 5 MG TAB PO SCH (12:15)
[2021-02-02 12:20] LABS: Glucose,Whole Blood 138 mg/dL (75-99)
--- NOTE | 2021-02-02 16:00 | ECHOF ---
Referral Reason:Exertional dyspnea, atrial flutter MEASUREMENTS -------- HEIGHT: 165.1 cm WEIGHT: 106.6 kg BP: 159/83 IVSd: 1.5 cm (0.6 - 1.1) LVIDd: 3.7 cm (3.9 - 5.3) LVPWd: 1.3 cm (0.6 - 1.1) EDV(Teich): 57 ml IVSs: 1.7 cm LVIDs: 2.8 cm LVPWs: 1.6 cm %IVS Thck: 10 % ESV(Teich): 30 ml EF(Teich): 48 % %FS: 24 % SV(Teich): 27 ml RVIDd: 3.9 cm (< 3.3) LALs A4C: 6.3 cm LAAs A4C: 24.9 cm LAESV A-L A4C: 83 ml LAESV MOD A4C: 80 ml Ao Diam: 3.0 cm (2.0 - 3.7) AV Cusp: 2.2 cm (1.5 - 2.6) EPSS: 0.6 cm LVOT Vmax: 1.07 m/s LVOT maxP.67 mmHg AV Vmax: 1.45 m/s AV maxP.53 mmHg MV EF SLOPE: 55.14 mm/s (70 - 150) MV EXCURSION: 21.73 mm (> 18.000) FINDINGS -------- Atrial fibrillation. This was a technically difficult study with suboptimal views. The left ventricular size is normal. There is moderate concentric left ventricular hypertrophy. O verall left ventricular systolic function is low-normal with, an EF between 50 - 55 %. The right ventricle is mild to moderately enlarged. The left atrium was not well visualized. The right atrium was not well visualized. 3.0mg of Lumason was utilized for enhancement of images Interatrial and interventricular septum intact. The aortic valve was not well visualized. There is no evidence of aortic regurgitation. There is no evidence of aortic stenosis. The mitral valve was not well visualized. Mild mitral regurgitation is present. The tricuspid valve was not well visualized. Mild tricuspid regurgitation present. Unable to magalys mate RVSP due to inadequate TR jet spectral doppler profile. There is no pulmonic regurgitation present. The aortic root size is normal. IVC Not well visulized. There is no pericardial effusion. CONCLUSIONS -------- 1. The left ventricular size is normal. 2. There is moderate concentric left ventricular hypertrophy. 3. Overall left ventricular systolic function is low-normal with, an EF between 50 - 55 %. 4. The right ventricle is mild to moderately enlarged. 5. Mild mitral regurgitation is present. 6. Mild tricuspid regurgitation present. [employer]: Payton Serrano RDCS
[2021-02-02 16:42] VITALS: BP 149/82; PULSE 65; TEMP 98.3
[2021-02-02 16:50] LABS: Glucose,Whole Blood 149 mg/dL (75-99)
== END 2021-02-02 18:13 | disposition home or self-care (01) ==
LOC: EC 10:33 → 3SCARD 14:25
PROVIDERS: ADMIT Internal Medicine; ATTEND Internal Medicine
DX: I48.19 Other persistent atrial fibrillation (principal); I48.92 Unspecified atrial flutter; I10 Essential (primary) hypertension; E78.5 Hyperlipidemia, unspecified; E11.9 Type 2 diabetes mellitus without complications; R05.9 Cough, unspecified; M19.90 Unspecified osteoarthritis, unspecified site; E66.9 Obesity, unspecified; Z68.39 Body mass index [BMI] 39.0-39.9, adult; R79.1 Abnormal coagulation profile; I25.10 Atherosclerotic heart disease of native coronary artery without angina pectoris; I08.1 Rheumatic disorders of both mitral and tricuspid valves; Z20.822 Contact with and (suspected) exposure to COVID-19; Z85.46 Personal history of malignant neoplasm of prostate; Z87.891 Personal history of nicotine dependence; Z92.3 Personal history of irradiation; Z86.16 Personal history of COVID-19; Z86.73 Personal history of transient ischemic attack (TIA), and cerebral infarction without residual deficits; Z95.9 Presence of cardiac and vascular implant and graft, unspecified; Z96.642 Presence of left artificial hip joint; Z95.5 Presence of coronary angioplasty implant and graft; Z79.84 Long term (current) use of oral hypoglycemic drugs; Z79.82 Long term (current) use of aspirin; Z79.02 Long term (current) use of antithrombotics/antiplatelets; Z79.899 Other long term (current) drug therapy; Z82.0 Family history of epilepsy and other diseases of the nervous system; Z83.3 Family history of diabetes mellitus; Z80.0 Family history of malignant neoplasm of digestive organs
CPT/HCPCS: 96376 ×2; 96366 ×3; 96365; 99285; 36415; 93005; 93306; 85379; 83880; 80061; 80053; 83605; 84484; 85025; 85610; 85730 ×2; 87635; 71046; 71275; G0378 ×2; J1644 ×3; Q9950; Q9967

== ENCOUNTER 2024-01-09 06:11 | Day surgery (SDC) | payer BC ==
[~2024-01-09 06:11] MED LIST changes: -DEXAMETHASONE SOD PHOSPHATE 4 MG/ML 1 ML VIAL IV ONE; -LIDOCAINE 1% (10MG/ML) FOR IV START INTRADERMA PRN; -ONDANSETRON 4 MG/2 ML VIAL IVP ONE; -SCOPOLAMINE 1.5MG/72HR PATCH TRANSDERM ONE; +SODIUM CHLORIDE 0.9% 500 ML 500 ML IV SCH
[2024-01-09 06:47] VITALS: TEMP 97.2
[2024-01-09 06:56] LABS: Glucose,Whole Blood 121 mg/dL (70-110)
[2024-01-09] MEDS: LACTATED RINGERS 1,000 ML IV SCH (07:04)
[2024-01-09] MEDS: IV FLUID CONTINUATION 1,000 ML IV ONE (07:07)
[2024-01-09] MEDS ORDERED: PROPOFOL 10 MG/ML 20 ML VIAL IV ONE (07:25)
[2024-01-09 08:01] LABS: African American GFR (CKD) 73 (>60 ml/min/1.73 sqM); Anion Gap 9 mmol/L; Blood Urea Nitrogen 22 mg/dL (9-20); Carbon Dioxide 22 mmol/L (22-30); Chloride 110 mmol/L (98-107); Glucose 130 mg/dL (74-99); Non-African American GFR(CKD) 64 (>60 ml/min/1.73 sqM); Sodium 141 mmol/L (137-145)
[2024-01-09 08:53] VITALS: BP 153/94; PULSE 79; RESP 16
--- NOTE | 2024-01-09 21:26 | P.PCN ---
Date of Procedure: 01/09/24 Operative Findings: Cardioversion report Performing physician Jorge Alberto Gomez MD Procedure performed Successful cardioversion of atrial fibrillation to normal sinus mechanism using 200 J on first attempt Indication Symptomatic atrial fibrillation Complication None Sedation Was performed using propofol with ROLLER STITCHER in the room Procedure description After obtaining an informed consent the patient was brought to the recovery room. Subsequently the patient was sedated using propofol. After that cardiove rsion was performed using 200 J on first attempt. Postprocedure management Continue dual antiplatelet therapy Follow-up
== END 2024-01-09 09:10 | disposition home or self-care (01) ==
LOC: OR 06:11
PROVIDERS: ATTEND Internal Medicine Interventional Cardiology
DX: I25.10 Atherosclerotic heart disease of native coronary artery without angina pectoris (principal); I48.91 Unspecified atrial fibrillation; I10 Essential (primary) hypertension; E78.5 Hyperlipidemia, unspecified; E11.9 Type 2 diabetes mellitus without complications; I73.9 Peripheral vascular disease, unspecified; C61 Malignant neoplasm of prostate; Z79.02 Long term (current) use of antithrombotics/antiplatelets; Z79.84 Long term (current) use of oral hypoglycemic drugs; Z79.899 Other long term (current) drug therapy
CPT/HCPCS: 92960; 80048; J2704

== ENCOUNTER 2024-02-17 06:11 | Day surgery (SDC) | payer BC ==
[2024-02-17] MEDS: SODIUM CHLORIDE 0.9% 500 ML 500 ML IV SCH (07:14)
[2024-02-17 07:20] LABS: Glucose,Whole Blood 117 mg/dL (70-110)
[2024-02-17 07:28] VITALS: TEMP 97
[2024-02-17] MEDS: IV FLUID CONTINUATION 1,000 ML IV ONE (07:28)
[2024-02-17] MEDS: IV FLUID CONTINUATION 500 ML IV ONE (07:29)
[2024-02-17] MEDS ORDERED: PROPOFOL 10 MG/ML 20 ML VIAL IV ONE (07:30)
[2024-02-17] MEDS ORDERED: SODIUM CHLORIDE 0.9% 1,000 ML IV SCH (07:30)
[2024-02-17 07:43] LABS: African American GFR (CKD) 59 (>60 ml/min/1.73 sqM); Anion Gap 9 mmol/L; Blood Urea Nitrogen 20 mg/dL (9-20); Carbon Dioxide 22 mmol/L (22-30); Chloride 108 mmol/L (98-107); Glucose 117 mg/dL (74-99); Non-African American GFR(CKD) 51 (>60 ml/min/1.73 sqM); Sodium 139 mmol/L (137-145)
[2024-02-17] MEDS: hydrALAZINE HCL 20 MG/ML 1 ML VIAL IVP STA (08:20)
[2024-02-17 08:37] LABS: Glucose,Whole Blood 104 mg/dL (70-110)
[2024-02-17 08:46] VITALS: RESP 16
[2024-02-17 09:06] VITALS: BP 141/70; PULSE 65
--- NOTE | 2024-02-17 10:19 | P.PCN ---
Date of Procedure: 02/17/24 Operative Findings: Cardioversion Report Performing physician Jorge Alberto Gomez M.D. Procedure performed Successful cardioversion of atrial fibrillation to normal sinus mechanism using 200 J at first attempt Indication Symptomatic atrial fibrillation Complication None Level of sedation The procedure was performed under deep sedation using propofol with EXTENDER in the room Procedure description After obtaining an informed consent the patient was brought to the recovery room. Sedation was introduced using propofol with EXTENDER in the room. Subsequently the patient cardioverted from atrial fibrillation to normal sinus mechanism using 200 J and first attempt Conclusion Successful cardioversion of atrial fibrillation to normal sinus mechanism using 200 J Postprocedure management Continue the current medical regimen Continue oral anticoagulation Follow-up with the patient
== END 2024-02-17 09:20 | disposition home or self-care (01) ==
LOC: OR 06:11
PROVIDERS: ATTEND Internal Medicine Interventional Cardiology
DX: I48.0 Paroxysmal atrial fibrillation (principal); I25.10 Atherosclerotic heart disease of native coronary artery without angina pectoris; I10 Essential (primary) hypertension; E78.5 Hyperlipidemia, unspecified; I49.1 Atrial premature depolarization; I65.23 Occlusion and stenosis of bilateral carotid arteries; Z95.5 Presence of coronary angioplasty implant and graft; Z86.73 Personal history of transient ischemic attack (TIA), and cerebral infarction without residual deficits; Z98.890 Other specified postprocedural states; Z79.01 Long term (current) use of anticoagulants; Z79.02 Long term (current) use of antithrombotics/antiplatelets; Z79.899 Other long term (current) drug therapy
CPT/HCPCS: 92960; 80048; J0360; J2704

== ENCOUNTER → 2024-05-24 | Outpatient (CLI) | payer BC ==
--- NOTE | 2024-05-25 11:38 | PE ---
EXAMINATION TYPE: PET CT fusion skull to thigh DATE OF EXAM: 05/24/2024 CLINICAL INDICATION:Male, 68 years old with history of C61 PROSTATE CANCER; TECHNIQUE: Following the intravenous administration of 5.57 mCi of Ga-68 Illuccix (PSMA), whole bod y images are performed from the skull base to the Mid thigh. Images are reviewed on the computer in the coronal, axial, and sagittal planes. Reconstructed rotating images are created on independent [employer] Engine rkstation and reviewed on the computer. A non-contrast CT is performed in conjunction with the PET scan. CT DLP: 901.78 mGycm, Automated exposure control for dose reduction was used. COMPARISON: CT 02/01/2021, PET/CT None, MRI: None FINDINGS: Mediastinal SUV mean is 1.7. Hepatic parenchyma SUV mean is 6.66. SKULL BASE AND NECK: No suspicious radiotracer activity. Suspected physiologic uptake within the floor the mouth muscles o r in the submandibular glands. CHEST, MEDIASTINUM, AND HILAR REGION: No suspicious radiotracer activity. Prominent mediastinal lymph nodes without abnormal uptake. The largest in the right low paratracheal region measuring 8 mm in short axis. ABDOMEN AND PELVIS: Suspicious uptake identified examples include: Retroperitoneal lymph nodes: Examples include: * 4 mm in short axis series 3 image 186 Max SUV 13.0 * 5 mm in short axis image 190 Max SUV 14.2, * Right external iliac lymph node image 220 measuring 4 mm max SUV 8.22 MUSCULOSKELETAL STRUCTURES: No suspicious radiotracer activity. OTHER CT: Atherosclerosis of the carotid bifurcations. Mild/moderate coronary artery atherosclerosis. Mild predominantly. Mild bilateral gynecomastia. Cholelithiasis. Prostate gland is surgically absent . Mild bladder wall thickening in a nondistended bladder. Post surgical changes of ventral wall with fat containing hernia. Left hip arthroplasty changes. Multilevel degeneration changes with transition al vertebra at the thoracolumbar junction. 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 [facility], , 05/25/2024 11:36 AM
== END | disposition home or self-care (01) ==
LOC: RADPETMAIN 14:11
PROVIDERS: ATTEND Urology
DX: C61 Malignant neoplasm of prostate (principal); I25.10 Atherosclerotic heart disease of native coronary artery without angina pectoris; K80.20 Calculus of gallbladder without cholecystitis without obstruction
CPT/HCPCS: 78815; A9596